=== PATIENT | female | born 1960 | race Two or more races ===

== ENCOUNTER 2016-11-03 00:22 | Emergency (ER) | payer MEDICAID, OTHER ==
[~2016-11-03] VITALS: Ht 170.2 cm; Wt 86.2 kg
[2016-11-03 00:25] VITALS: BP 107/67
[2016-11-03 01:02] LABS: Basophils # (auto) 0.1 uL; Basophils % (auto) 1.4 % (0.0-2.0); Eosinophils # (auto) 0.1 uL; Eosinophils % (auto) 0.6 % (0.0-7.0); Hematocrit 42.3 % (36.0-46.0); Lymphocytes # (auto) 1.5 uL; Lymphocytes % (auto) 14.1 % (10.0-50.0); Mean Corpuscular Hemoglobin 28.1 pg (28.0-32.0); Mean Corpuscular Hgb Conc. 33.1 g/dL (32.0-36.0); Mean Corpuscular Volume 84.9 fL (80.0-100.0); Monocytes # (auto) 0.7 uL; Monocytes % (auto) 6.3 % (0.0-12.0); Neutrophils # (auto) 8.2 uL; Neutrophils % (auto) 77.6 % (37.0-80.0); Platelet Count (auto) 394 10^3/uL (140-450); Red Cell Distribution Width 13.5 % (11.6-16.0); SUSPECT VIEW TRANSMISSION; White Blood Cell 10.6 10^3/uL (4.4-10.8)
[2016-11-03 01:24] LABS: Albumin 2.9 g/dL (3.4-5.0); Calcium 8.9 mg/dL (8.5-10.1); Potassium 4.2 mmol/L (3.5-5.1)
[2016-11-03 01:26] LABS: BUN/Creatinine Ratio 13.2
[2016-11-03 01:29] LABS: Bilirubin, Total 0.4 mg/dL (0.2-1.0); Total Protein 6.9 g/dL (6.4-8.2)
== END 2016-11-03 05:30 | disposition left against medical advice (07) ==
LOC: ER 00:22
DX: R11.2 Nausea with vomiting, unspecified (principal); R10.13 Epigastric pain; Z53.21 Procedure and treatment not carried out due to patient leaving prior to being seen by health care provider
CPT/HCPCS: 36415; 74176; 80053; 85025; 93005

== ENCOUNTER 2017-06-20 07:55 | Inpatient (IN) | payer MEDICAID ==
[~2017-06-20] VITALS: Ht 160 cm; Wt 90.1 kg
[2017-06-20] MEDS ORDERED: SODIUM CHLORIDE 0.9% 1,000 ML IV ONE (08:05)
[2017-06-20] MEDS ORDERED: DILTIAZEM HCL 25 MG/5 ML VIAL IV ONE (08:15)
[2017-06-20] MEDS ORDERED: ASPirin 81 mg TAB PO ONE (08:15)
[2017-06-20 08:49] LABS: Basophils # (auto) 0.1 uL; Basophils % (auto) 0.4 % (0.0-2.0); Eosinophils # (auto) 0 uL; Eosinophils % (auto) 0.2 % (0.0-7.0); Hematocrit 41.8 % (36.0-46.0); Hemoglobin 13.7 g/dL (12.2-16.2); Lymphocytes # (auto) 1.9 uL; Lymphocytes % (auto) 14.2 % (10.0-50.0); Mean Corpuscular Hemoglobin 27.7 pg (28.0-32.0); Mean Corpuscular Hgb Conc. 32.7 g/dL (32.0-36.0); Mean Corpuscular Volume 84.7 fL (80.0-100.0); Monocytes # (auto) 0.9 uL; Monocytes % (auto) 6.3 % (0.0-12.0); Neutrophils # (auto) 10.7 uL; Neutrophils % (auto) 78.9 % (37.0-80.0); Nucleated Red Blood Cells % 0.1 %; Platelet Count (auto) 319 10^3/uL (140-450); Red Blood Cells 4.93 10^6/uL (4.0-5.20); Red Cell Distribution Width 15.9 % (11.8-14.3); White Blood Cell 13.6 10^3/uL (4.4-10.8)
[2017-06-20 09:13] LABS: Albumin 2.9 g/dL (3.4-5.0); BUN/Creatinine Ratio 17.6; Calcium 8.3 mg/dL (8.5-10.1); Magnesium 2.1 mg/dL (1.6-2.6); Potassium 4.1 mmol/L (3.5-5.1)
[2017-06-20 09:17] LABS: INR 1.12 (0.9-1.15); Partial Thromboplastin Time 23.3 sec (22.64-33.71); Prothrombin Time 12.2 sec (9.37-12.3)
[2017-06-20] MEDS ORDERED: AMIODARONE HCL 150 MG in D5W 5% 100 ML IV ONE (10:30)
[2017-06-20] MEDS ORDERED: AMIODARONE HCL 900 MG in DEXTROSE 500 ML IV SCH (10:35)
[2017-06-20] MEDS ORDERED: cefTRIAXone 1GM/10ml IVPUSH 10 ML IV ONE (10:45)
[2017-06-20] MEDS ORDERED: TEMAZEPAM 15 MG CAP PO PRN (11:15)
[2017-06-20] MEDS ORDERED: ACETAMINOPHEN 500 MG TAB PO PRN (11:15)
[2017-06-20] MEDS ORDERED: NITROGLYCERIN 0.4 MG SL TAB SL PRN (11:15)
[2017-06-20] MEDS ORDERED: ALBUTEROL SULF 2.5 MG/0.5ML(0.5%) NEB SOLN NEB PRN (11:15)
[2017-06-20] MEDS ORDERED: DEXTROSE (50%) 50ML SYRG IV PRN (11:15)
[2017-06-20] MEDS ORDERED: OSELTAMIVIR 75 MG CAP PO ONE (11:15)
[2017-06-20] MEDS ORDERED: PROMETHAZINE HCL 25 MG/ML 1ML IV PRN (11:15)
[2017-06-20] MEDS ORDERED: LACTULOSE 20Gm/30ML SOLN PO PRN (11:15)
[2017-06-20] MEDS ORDERED: MORPHINE SULFATE 4 MG/ML SYR/VIAL IV PRN (11:15)
[2017-06-20] MEDS ORDERED: MORPHINE SULF INJ 2 MG/ML SYRINGE 1ML IV PRN (11:30)
[2017-06-20] MEDS ORDERED: ENALAPRIL MALEATE 2.5 MG TAB PO ONE (11:30)
[2017-06-20] MEDS ORDERED: POTASSIUM CHL 20 Meq TABLET PO ONE (11:30)
[2017-06-20] MEDS ORDERED: AZITHROMYCIN 500MG/ 250ML 250 ML IV ONE (11:30)
[2017-06-20] MEDS ORDERED: FUROSEMIDE 40 MG/4 ML VIAL IV ONE ×2 (11:30→20:45)
[2017-06-20] MEDS ORDERED: ENOXAPARIN SOD 80 MG/0.8ML SYRINGE SC ONE (11:30)
[2017-06-20] MEDS: IPRATROPIUM BROM 0.5 MG/2.5ML INH SOL NEB SCH ×2 (11:38→18:54)
[2017-06-20] MEDS: ALBUTEROL SULF 2.5 MG/0.5ML(0.5%) NEB SOLN NEB SCH ×2 (11:38→18:54)
[2017-06-20] MEDS: ACCU-CHEK COMFORT CURVE STRIP VI SCH ×2 (12:00→18:00)
[2017-06-20] MEDS ORDERED: methylPREDNISolone SOD SUCC 40 MG/ML VL IV SCH (12:00)
[2017-06-20 12:57] LABS: Alcohol, Urine < 3.0 mg/dL (0-5); Amphetamine Screen, Urine POSITIVE (NEGATIVE); Barbiturate Scree,Urine NEGATIVE (NEGATIVE); Benzodiazephine Screen, Urine NEGATIVE (NEGATIVE); Cannabinoid Screen, Urine POSITIVE (NEGATIVE); Cocaine Screen, Urine NEGATIVE (NEGATIVE); Opiate Scree,Urine NEGATIVE (NEGATIVE); Phencyclidine Screen, Urine NEGATIVE (NEGATIVE)
[2017-06-20] MEDS ORDERED: METOPROLOL TARTRATE 1MG/1ML-5ML VIAL IV ONE (13:00)
[2017-06-20 13:20] LABS: Bilirubin, Total 1.2 mg/dL (0.2-1.0)
[2017-06-20] MEDS: SODIUM CHLOR 0.9% PF (SALINE LOCK) 10ML VIAL IV SCH ×4 (14:00→21:55)
[2017-06-20] MEDS: MORPHINE SULF INJ 2 MG/ML SYRINGE 1ML IV PRN (14:06)
[2017-06-20 14:19] LABS: Urine Bacteria NONE SEEN /hpf (None Seen); Urine Blood Negative /uL (Negative); Urine Specific Gravity 1.011 (1.001-1.035); Urine WBC 4 /hpf (0 - 5)
[2017-06-20] MEDS ORDERED: DOPamine 1600MCG/ML D5W 250 ML IV ONE (15:06)
[2017-06-20] MEDS ORDERED: MIDAZOLAM HCL 1MG/1ML-2 ML VIAL ONE ×2 (15:08→15:11)
[2017-06-20] MEDS: DOPamine 1600MCG/ML D5W 250 ML IV SCH (15:15)
[2017-06-20] MEDS: NOREPINEPHRINE 8 MG/250ML KIT 250 ML IV SCH ×2 (15:15→16:05)
[2017-06-20] MEDS ORDERED: LORazepam 2MG/ML-1ML VIAL IV ONE (15:15)
[2017-06-20 15:22] LABS: Amylase 29 U/L (25-115); Lipase 86 U/L (73-393)
[2017-06-20] MEDS ORDERED: IOHEXOL 350 MG/ML 100ML IJ ONE (15:35)
[2017-06-20] MEDS ORDERED: MIDAZOLAM HCL 5 MG/ML-1ML VIAL IV ONE (16:00)
[2017-06-20] MEDS ORDERED: THIAMINE HCL 100 MG/ML 2ML VIAL IV ONE (16:15)
[2017-06-20] MEDS: PROPOFOL 100 ML IV SCH (16:25)
[2017-06-20] MEDS ORDERED: PROPOFOL 100 ML IV ONE (16:43)
[2017-06-20] MEDS ORDERED: MIDAZOLAM HCL 1MG/1ML-2 ML VIAL IV ONE (18:15)
[2017-06-20 18:23] VITALS: BP 97/33
[2017-06-20] MEDS ORDERED: DEXTROSE 50% SYRINGE 50 ML IV ONE (19:02)
[2017-06-20] MEDS ORDERED: EPINEPHrine HCL 1 MG/10 ML SYRG IV ONE (19:18)
[2017-06-20] MEDS ORDERED: SODIUM BICARBONATE 8.4% INJ 50ML SYRINGE IV ONE (19:18)
[2017-06-20] MEDS ORDERED: CALCIUM CHLOR(10%) 100MG/ML 10ML SYRINGE IV ONE (19:18)
[2017-06-20] MEDS ORDERED: MIDAZOLAM DRIP 50 mg/50mL 50 ML IV SCH (19:36)
[2017-06-20 19:58] VITALS: BP 109/61
[2017-06-20] MEDS ORDERED: VANCOMYCIN PER PHARMACY 0 MG IV SCH (20:45)
[2017-06-20 21:38] VITALS: BP 97/67
[2017-06-20] MEDS: CARVEDILOL 3.125 MG TAB PO SCH (21:56)
[2017-06-20] MEDS ORDERED: OSELTAMIVIR 75 MG CAP PO SCH (22:00)
[2017-06-20] MEDS: SODIUM BICARBONATE 50ML VIAL 150 ML in D5W 5% 1,000 ML IV SCH (22:13)
[2017-06-20] MEDS: ENOXAPARIN SOD 80 MG/0.8ML SYRINGE SC SCH (22:23)
[2017-06-20 22:25] VITALS: BP 106/75
[2017-06-20] MEDS: VANCOMYCIN 750 MG in SODIUM CHL 0.9% 250 ML IV SCH (22:38)
[2017-06-20 23:58] VITALS: BP 99/66
[2017-06-21] VITALS (60 sets, daily range): BP systolic 80–142; BP diastolic 33–88
[2017-06-21] MEDS: IPRATROPIUM BROM 0.5 MG/2.5ML INH SOL NEB SCH ×4 (00:12→18:26)
[2017-06-21] MEDS: ALBUTEROL SULF 2.5 MG/0.5ML(0.5%) NEB SOLN NEB SCH ×4 (00:12→18:26)
[2017-06-21] MEDS: PIPERACILLIN-TAZOB 3.375GM 50 ML IV SCH ×4 (00:26→18:00)
[2017-06-21] MEDS: ACCU-CHEK COMFORT CURVE STRIP VI SCH ×6 (00:33→22:00)
[2017-06-21] MEDS ORDERED: SODIUM CHLORIDE 0.9% 500 ML IV ONE (02:45)
[2017-06-21 06:05] LABS: Hematocrit 37.8 % (36.0-46.0); Hemoglobin 12.3 g/dL (12.2-16.2); Mean Corpuscular Hemoglobin 27.6 pg (28.0-32.0); Mean Corpuscular Hgb Conc. 32.6 g/dL (32.0-36.0); Red Blood Cells 4.47 10^6/uL (4.0-5.20)
[2017-06-21 06:08] LABS: Mean Corpuscular Volume 84.6 fL (80.0-100.0); Platelet Count (auto) 255 10^3/uL (140-450); Red Cell Distribution Width 15.6 % (11.8-14.3)
[2017-06-21 06:15] LABS: White Blood Cell 31.1 10^3/uL (4.4-10.8)
[2017-06-21 06:16] LABS: Band Neutrophils % (manual) 0; Basophils % (manual) 0 (0.0-2.0); Blast Cells 0; Eosinophils % (manual) 0 (0-7); Myelocytes % 0; Promyelocytes % 0; Reactive Lymphocytes 0
[2017-06-21 06:21] LABS: Calcium 6.8 mg/dL (8.5-10.1)
[2017-06-21 06:23] LABS: BUN/Creatinine Ratio 15.8; Cholesterol 82 mg/dL (< 200); HDL Cholesterol 26 mg/dL (40-59); LDL Cholesterol 66 mg/dL (< 100); Triglycerides 88 mg/dL (< 150)
[2017-06-21] MEDS: SODIUM CHLOR 0.9% PF (SALINE LOCK) 10ML VIAL IV SCH ×6 (06:26→22:00)
[2017-06-21 07:09] LABS: Lymphocytes % (manual) 2 (10.0-50.0); Metamyelocytes % 1; Monocytes % (manual) 3 (0-12)
[2017-06-21] MEDS ORDERED: cefTRIAXone 1GM/10ml IVPUSH 10 ML IV SCH (09:00)
[2017-06-21] MEDS ORDERED: PANTOPRAZOLE 40 MG/10 ML VIAL IV ONE (09:17)
[2017-06-21] MEDS: AZITHROMYCIN 500MG/ 250ML 250 ML IV SCH (09:51)
[2017-06-21] MEDS: FUROSEMIDE 40 MG/4 ML VIAL IV SCH (09:51)
[2017-06-21] MEDS: THIAMINE HCL 100 MG/ML 2ML VIAL IV SCH (09:51)
[2017-06-21] MEDS: VANCOMYCIN 750 MG in SODIUM CHL 0.9% 250 ML IV SCH (09:51)
[2017-06-21] MEDS: CARVEDILOL 3.125 MG TAB PO SCH (09:52)
[2017-06-21] MEDS: SODIUM BICARBONATE 50ML VIAL 150 ML in D5W 5% 1,000 ML IV SCH (09:52)
[2017-06-21] MEDS: ASPirin 81 mg TAB PO SCH (09:52)
[2017-06-21] MEDS: POTASSIUM CHL 10% (20 MEQ/15ML) 15ml ORAL SOLN PO SCH (09:53)
[2017-06-21] MEDS: ENOXAPARIN SOD 80 MG/0.8ML SYRINGE SC SCH (09:53)
[2017-06-21] MEDS ORDERED: POTASSIUM CHL 20 Meq TABLET PO SCH (10:00)
[2017-06-21] MEDS ORDERED: ENALAPRIL MALEATE 2.5 MG TAB PO SCH (10:00)
[2017-06-21] MEDS ORDERED: PANTOPRAZOLE 40 MG/10 ML VIAL IV SCH (10:00)
[2017-06-21] MEDS ORDERED: PANTOPRAZOLE 40 MG TAB PO SCH (10:00)
[2017-06-21] MEDS: DOPamine 1600MCG/ML D5W 250 ML IV SCH (10:13)
[2017-06-21] MEDS ORDERED: PIPERACILLIN-TAZOB 2.25GM 50 ML IV ONE (10:45)
[2017-06-21] MEDS: LINEZOLID 600MG/300ML 300 ML IV SCH ×2 (10:45→22:00)
[2017-06-21 10:53] LABS: Hepatitis B Surface Antibody Negative
[2017-06-21 11:08] LABS: Hepatitis B Surface Antigen Negative (Negative)
[2017-06-21 11:29] LABS: Hepatitis A Total Antibody Negative; Hepatitis C Antibody Negative (Negative)
[2017-06-21 11:30] LABS: Hepatitis B Core Total AB Negative
[2017-06-21] MEDS ORDERED: PIPERACILLIN-TAZOB 2.25GM 50 ML IV SCH (12:00)
[2017-06-21] MEDS ORDERED: NICARDIPINE IV ONE (13:33)
[2017-06-21] MEDS: NOREPINEPHRINE 8 MG/250ML KIT 250 ML IV SCH ×2 (15:36→22:00)
[2017-06-21] MEDS: PROPOFOL 100 ML IV SCH (16:20)
[2017-06-21] MEDS: InsuLIN REG 1unit/0.01ml Soln (100units/ml) SC SCH ×2 (16:55→22:00)
[2017-06-21] MEDS: MIDAZOLAM DRIP 100 mg/100mL NS 100 ML IV SCH (17:59)
[2017-06-21 18:00] LABS: BUN/Creatinine Ratio 15.5; Calcium 6.1 mg/dL (8.5-10.1); Potassium 3.9 mmol/L (3.5-5.1)
[2017-06-21] MEDS: PANTOPRAZOLE 40 MG/10 ML VIAL IV SCH (22:00)
[2017-06-22] VITALS (105 sets, daily range): BP systolic 78–142; BP diastolic 36–84
[2017-06-22] MEDS: ALBUTEROL SULF 2.5 MG/0.5ML(0.5%) NEB SOLN NEB SCH ×4 (00:08→19:01)
[2017-06-22] MEDS: IPRATROPIUM BROM 0.5 MG/2.5ML INH SOL NEB SCH ×4 (00:08→19:01)
[2017-06-22] MEDS: SODIUM BICARBONATE 50ML VIAL 150 ML in D5W 5% 1,000 ML IV SCH ×2 (00:15→07:15)
[2017-06-22] MEDS: PIPERACILLIN-TAZOB 3.375GM 50 ML IV SCH ×5 (00:15→20:03)
[2017-06-22 04:07] LABS: Basophils # (auto) 0 uL; Basophils % (auto) 0.1 % (0.0-2.0); Eosinophils # (auto) 0 uL; Eosinophils % (auto) 0.1 % (0.0-7.0); Hematocrit 37.8 % (36.0-46.0); Hemoglobin 12.3 g/dL (12.2-16.2); Lymphocytes # (auto) 1.4 uL; Lymphocytes % (auto) 5.8 % (10.0-50.0); Mean Corpuscular Hemoglobin 27.1 pg (28.0-32.0); Mean Corpuscular Hgb Conc. 32.7 g/dL (32.0-36.0); Mean Corpuscular Volume 82.9 fL (80.0-100.0); Monocytes # (auto) 0.7 uL; Monocytes % (auto) 2.8 % (0.0-12.0); Neutrophils # (auto) 21.4 uL; Neutrophils % (auto) 91.2 % (37.0-80.0); Nucleated Red Blood Cells % 0.1 %; Platelet Count (auto) 222 10^3/uL (140-450); Red Blood Cells 4.56 10^6/uL (4.0-5.20); Red Cell Distribution Width 15.6 % (11.8-14.3); White Blood Cell 23.4 10^3/uL (4.4-10.8)
[2017-06-22] MEDS: PROPOFOL 100 ML IV SCH ×2 (04:13→15:09)
[2017-06-22 04:29] LABS: Albumin 1.9 g/dL (3.4-5.0); BUN/Creatinine Ratio 15.1; Potassium 3.7 mmol/L (3.5-5.1)
[2017-06-22 04:33] LABS: Bilirubin, Total 1.8 mg/dL (0.2-1.0); Total Protein 4.6 g/dL (6.4-8.2)
[2017-06-22 04:50] LABS: Calcium 5.8 mg/dL (8.5-10.1)
[2017-06-22] MEDS: DOPamine 1600MCG/ML D5W 250 ML IV SCH (04:56)
[2017-06-22] MEDS: ACCU-CHEK COMFORT CURVE STRIP VI SCH ×8 (06:26→21:48)
[2017-06-22] MEDS: SODIUM CHLOR 0.9% PF (SALINE LOCK) 10ML VIAL IV SCH ×6 (06:26→21:48)
[2017-06-22] MEDS: InsuLIN REG 1unit/0.01ml Soln (100units/ml) SC SCH ×4 (06:38→21:48)
[2017-06-22] MEDS ORDERED: CALCIUM CHL 100MG/ML 1,000 MG in D5W 5% 100 ML IV ONE (10:00)
[2017-06-22] MEDS ORDERED: ENOXAPARIN SOD 40 MG/0.4 ML SYRINGE SC SCH (10:00)
[2017-06-22] MEDS: POTASSIUM CHL 10% (20 MEQ/15ML) 15ml ORAL SOLN PO SCH (10:00)
[2017-06-22] MEDS: NOREPINEPHRINE 8 MG/250ML KIT 250 ML IV SCH (10:40)
[2017-06-22] MEDS: THIAMINE HCL 100 MG/ML 2ML VIAL IV SCH (11:14)
[2017-06-22] MEDS: PANTOPRAZOLE 40 MG/10 ML VIAL IV SCH ×2 (11:20→21:48)
[2017-06-22] MEDS: ENOXAPARIN SOD 30 MG/0.3 ML SYRINGE SC SCH (11:25)
[2017-06-22] MEDS: FUROSEMIDE 40 MG/4 ML VIAL IV SCH (11:29)
[2017-06-22] MEDS: LINEZOLID 600MG/300ML 300 ML IV SCH ×2 (11:29→21:48)
[2017-06-22] MEDS: ASPirin 81 mg TAB PO SCH (11:35)
[2017-06-22] MEDS: SODIUM CHLORIDE 0.9% 1,000 ML IV SCH (11:47)
[2017-06-22] MEDS: AZITHROMYCIN 500MG/ 250ML 250 ML IV SCH (11:51)
[2017-06-22] MEDS: MIDAZOLAM DRIP 100 mg/100mL NS 100 ML IV SCH (19:10)
[2017-06-23] VITALS (94 sets, daily range): BP systolic 70–158; BP diastolic 32–101
[2017-06-23] MEDS: DOPamine 1600MCG/ML D5W 250 ML IV SCH ×2 (00:09→19:07)
[2017-06-23] MEDS: PIPERACILLIN-TAZOB 3.375GM 50 ML IV SCH ×4 (00:14→19:59)
[2017-06-23] MEDS: ALBUTEROL SULF 2.5 MG/0.5ML(0.5%) NEB SOLN NEB SCH ×5 (00:59→18:48)
[2017-06-23] MEDS: IPRATROPIUM BROM 0.5 MG/2.5ML INH SOL NEB SCH ×5 (00:59→18:48)
[2017-06-23] MEDS: SODIUM CHLORIDE 0.9% 1,000 ML IV SCH ×2 (02:50→12:25)
[2017-06-23 04:35] LABS: Basophils # (auto) 0 uL; Basophils % (auto) 0.1 % (0.0-2.0); Eosinophils # (auto) 0.1 uL; Eosinophils % (auto) 0.5 % (0.0-7.0); Hematocrit 35.4 % (36.0-46.0); Hemoglobin 11.4 g/dL (12.2-16.2); Lymphocytes % (auto) 6.7 % (10.0-50.0); Mean Corpuscular Hemoglobin 27.1 pg (28.0-32.0); Mean Corpuscular Hgb Conc. 32.3 g/dL (32.0-36.0); Mean Corpuscular Volume 83.9 fL (80.0-100.0); Monocytes # (auto) 0.7 uL; Monocytes % (auto) 4.7 % (0.0-12.0); Neutrophils # (auto) 13.6 uL; Platelet Count (auto) 176 10^3/uL (140-450); Red Blood Cells 4.22 10^6/uL (4.0-5.20); Red Cell Distribution Width 16.1 % (11.8-14.3); White Blood Cell 15.5 10^3/uL (4.4-10.8)
[2017-06-23 04:58] LABS: BUN/Creatinine Ratio 13.2; Calcium 6.5 mg/dL (8.5-10.1); Potassium 3.8 mmol/L (3.5-5.1)
[2017-06-23] MEDS: NOREPINEPHRINE 8 MG/250ML KIT 250 ML IV SCH (05:03)
[2017-06-23] MEDS: PROPOFOL 100 ML IV SCH (05:03)
[2017-06-23] MEDS: SODIUM CHLOR 0.9% PF (SALINE LOCK) 10ML VIAL IV SCH ×6 (05:32→22:28)
[2017-06-23] MEDS: ACCU-CHEK COMFORT CURVE STRIP VI SCH ×8 (06:14→22:28)
[2017-06-23] MEDS: InsuLIN REG 1unit/0.01ml Soln (100units/ml) SC SCH ×4 (06:14→22:00)
[2017-06-23] MEDS: LINEZOLID 600MG/300ML 300 ML IV SCH ×2 (09:48→22:28)
[2017-06-23] MEDS: ASPirin 81 mg TAB PO SCH (09:48)
[2017-06-23] MEDS: AZITHROMYCIN 500MG/ 250ML 250 ML IV SCH (09:48)
[2017-06-23] MEDS: FUROSEMIDE 40 MG/4 ML VIAL IV SCH (09:49)
[2017-06-23] MEDS: POTASSIUM CHL 10% (20 MEQ/15ML) 15ml ORAL SOLN PO SCH (09:49)
[2017-06-23] MEDS: ENOXAPARIN SOD 30 MG/0.3 ML SYRINGE SC SCH (09:49)
[2017-06-23] MEDS: THIAMINE HCL 100 MG/ML 2ML VIAL IV SCH (09:50)
[2017-06-23] MEDS: PANTOPRAZOLE 40 MG/10 ML VIAL IV SCH ×2 (09:50→22:28)
[2017-06-23] MEDS: LORazepam 0.5 MG TAB PO PRN (19:59)
[2017-06-23] MEDS: DEXTROSE (50%) 50ML SYRG IV PRN (20:05)
[2017-06-23] MEDS: MIDAZOLAM DRIP 100 mg/100mL NS 100 ML IV SCH (20:10)
[2017-06-24] VITALS (97 sets, daily range): BP systolic 79–188; BP diastolic 44–118
[2017-06-24] MEDS: ACCU-CHEK COMFORT CURVE STRIP VI SCH ×7 (00:03→18:06)
[2017-06-24] MEDS: PIPERACILLIN-TAZOB 3.375GM 50 ML IV SCH ×4 (00:29→18:15)
[2017-06-24] MEDS: PROPOFOL 100 ML IV SCH ×2 (01:30→21:02)
[2017-06-24] MEDS: MORPHINE SULF INJ 2 MG/ML SYRINGE 1ML IV PRN (03:55)
[2017-06-24 04:50] LABS: Basophils # (auto) 0 uL; Basophils % (auto) 0.2 % (0.0-2.0); Eosinophils # (auto) 0.2 uL; Eosinophils % (auto) 1.5 % (0.0-7.0); Hematocrit 34.2 % (36.0-46.0); Hemoglobin 11.3 g/dL (12.2-16.2); Lymphocytes % (auto) 8.8 % (10.0-50.0); Mean Corpuscular Hemoglobin 27.6 pg (28.0-32.0); Mean Corpuscular Hgb Conc. 32.9 g/dL (32.0-36.0); Mean Corpuscular Volume 83.7 fL (80.0-100.0); Monocytes # (auto) 0.8 uL; Monocytes % (auto) 7.1 % (0.0-12.0); Neutrophils # (auto) 9.6 uL; Neutrophils % (auto) 82.4 % (37.0-80.0); Nucleated Red Blood Cells % 0.1 %; Platelet Count (auto) 136 10^3/uL (140-450); Red Blood Cells 4.09 10^6/uL (4.0-5.20); Red Cell Distribution Width 15.9 % (11.8-14.3); White Blood Cell 11.7 10^3/uL (4.4-10.8)
[2017-06-24] MEDS: LORazepam 0.5 MG TAB PO PRN (04:59)
[2017-06-24 05:05] LABS: BUN/Creatinine Ratio 11.7; Potassium 3.3 mmol/L (3.5-5.1)
[2017-06-24] MEDS: DEXTROSE (50%) 50ML SYRG IV PRN (05:10)
[2017-06-24] MEDS: SODIUM CHLOR 0.9% PF (SALINE LOCK) 10ML VIAL IV SCH ×6 (05:28→21:21)
[2017-06-24] MEDS: IPRATROPIUM BROM 0.5 MG/2.5ML INH SOL NEB SCH ×3 (05:56→18:20)
[2017-06-24] MEDS: ALBUTEROL SULF 2.5 MG/0.5ML(0.5%) NEB SOLN NEB SCH ×3 (05:56→18:20)
[2017-06-24] MEDS: InsuLIN REG 1unit/0.01ml Soln (100units/ml) SC SCH ×2 (06:53→11:30)
[2017-06-24] MEDS: SODIUM CHLORIDE 0.9% 1,000 ML IV SCH (06:56)
[2017-06-24] MEDS: LINEZOLID 600MG/300ML 300 ML IV SCH ×2 (10:30→21:31)
[2017-06-24] MEDS: PANTOPRAZOLE 40 MG/10 ML VIAL IV SCH ×2 (10:40→21:31)
[2017-06-24] MEDS: THIAMINE HCL 100 MG/ML 2ML VIAL IV SCH (10:40)
[2017-06-24] MEDS: ASPirin 81 mg TAB PO SCH (10:40)
[2017-06-24] MEDS: POTASSIUM CHL 10% (20 MEQ/15ML) 15ml ORAL SOLN PO SCH (10:40)
[2017-06-24] MEDS: ENOXAPARIN SOD 30 MG/0.3 ML SYRINGE SC SCH (10:40)
[2017-06-24] MEDS: FUROSEMIDE 40 MG/4 ML VIAL IV SCH (10:45)
[2017-06-24] MEDS: DOPamine 1600MCG/ML D5W 250 ML IV SCH (15:00)
[2017-06-24] MEDS: NOREPINEPHRINE 8 MG/250ML KIT 250 ML IV SCH (15:15)
[2017-06-24] MEDS: AZITHROMYCIN 500MG/ 250ML 250 ML IV SCH (16:00)
[2017-06-24] MEDS ORDERED: POTASSIUM CHLORIDE 40 MEQ, LIDOCAINE 1% (LOCAL ANESTH.) 4 ML in SODIUM CHL 0.9% 100 ML IV ONE (16:15)
[2017-06-24] MEDS: SOD CHL 0.45% 1,000 ML IV SCH (16:25)
[2017-06-24] MEDS: MIDAZOLAM DRIP 100 mg/100mL NS 100 ML IV SCH (18:00)
[2017-06-25] VITALS (55 sets, daily range): BP systolic 91–175; BP diastolic 25–105
[2017-06-25] MEDS: ALBUTEROL SULF 2.5 MG/0.5ML(0.5%) NEB SOLN NEB SCH ×4 (00:03→18:36)
[2017-06-25] MEDS: IPRATROPIUM BROM 0.5 MG/2.5ML INH SOL NEB SCH ×4 (00:03→18:36)
[2017-06-25] MEDS: PIPERACILLIN-TAZOB 3.375GM 50 ML IV SCH ×4 (00:11→17:29)
[2017-06-25] MEDS: PROPOFOL 100 ML IV SCH (02:34)
[2017-06-25 03:59] LABS: Basophils # (auto) 0.1 uL; Basophils % (auto) 0.7 % (0.0-2.0); Eosinophils # (auto) 0.3 uL; Eosinophils % (auto) 2.1 % (0.0-7.0); Hematocrit 37.5 % (36.0-46.0); Hemoglobin 12.1 g/dL (12.2-16.2); Lymphocytes # (auto) 0.7 uL; Lymphocytes % (auto) 6.1 % (10.0-50.0); Mean Corpuscular Hemoglobin 27.2 pg (28.0-32.0); Mean Corpuscular Hgb Conc. 32.4 g/dL (32.0-36.0); Mean Corpuscular Volume 83.9 fL (80.0-100.0); Monocytes # (auto) 0.9 uL; Monocytes % (auto) 7.3 % (0.0-12.0); Neutrophils # (auto) 10.1 uL; Neutrophils % (auto) 83.8 % (37.0-80.0); Platelet Count (auto) 156 10^3/uL (140-450); Red Blood Cells 4.47 10^6/uL (4.0-5.20); Red Cell Distribution Width 16.4 % (11.8-14.3)
[2017-06-25 04:17] LABS: Calcium 7.3 mg/dL (8.5-10.1)
[2017-06-25] MEDS: MORPHINE SULF INJ 2 MG/ML SYRINGE 1ML IV PRN ×2 (05:26→21:13)
[2017-06-25] MEDS: SODIUM CHLOR 0.9% PF (SALINE LOCK) 10ML VIAL IV SCH ×6 (06:00→22:00)
[2017-06-25] MEDS: ACCU-CHEK COMFORT CURVE STRIP VI SCH ×4 (06:00→17:30)
[2017-06-25] MEDS: DOPamine 1600MCG/ML D5W 250 ML IV SCH (09:03)
[2017-06-25] MEDS: SOD CHL 0.45% 1,000 ML IV SCH ×2 (09:14→12:15)
[2017-06-25] MEDS: DEXMEDETOMIDINE HCL 400 MCG in D5W 5% 96 ML IV SCH ×2 (09:14→21:15)
[2017-06-25] MEDS: THIAMINE HCL 100 MG/ML 2ML VIAL IV SCH (09:53)
[2017-06-25] MEDS: PANTOPRAZOLE 40 MG/10 ML VIAL IV SCH ×2 (09:53→21:12)
[2017-06-25] MEDS: AZITHROMYCIN 500MG/ 250ML 250 ML IV SCH (09:53)
[2017-06-25] MEDS: ENOXAPARIN SOD 30 MG/0.3 ML SYRINGE SC SCH (09:54)
[2017-06-25] MEDS: ASPirin 81 mg TAB PO SCH (09:54)
[2017-06-25] MEDS: LINEZOLID 600MG/300ML 300 ML IV SCH ×2 (10:42→21:14)
[2017-06-25] MEDS: NOREPINEPHRINE 8 MG/250ML KIT 250 ML IV SCH (15:15)
[2017-06-25] MEDS: MIDAZOLAM DRIP 100 mg/100mL NS 100 ML IV SCH (18:00)
[2017-06-25] MEDS: D5W/SOD CHL 0.45% 1,000 ML IV SCH (18:26)
[2017-06-25] MEDS: methylPREDNISolone SOD SUCC 40 MG/ML VL IV SCH (21:13)
[2017-06-26] VITALS (57 sets, daily range): BP systolic 92–140; BP diastolic 56–83
[2017-06-26] MEDS: IPRATROPIUM BROM 0.5 MG/2.5ML INH SOL NEB SCH ×4 (00:19→19:44)
[2017-06-26] MEDS: ALBUTEROL SULF 2.5 MG/0.5ML(0.5%) NEB SOLN NEB SCH ×4 (00:20→19:44)
[2017-06-26] MEDS: MORPHINE SULF INJ 2 MG/ML SYRINGE 1ML IV PRN ×2 (00:48→06:50)
[2017-06-26 03:50] LABS: Basophils # (auto) 0 uL; Basophils % (auto) 0.1 % (0.0-2.0); Eosinophils # (auto) 0 uL; Hematocrit 37.8 % (36.0-46.0); Hemoglobin 12.4 g/dL (12.2-16.2); Lymphocytes # (auto) 0.4 uL; Lymphocytes % (auto) 3.9 % (10.0-50.0); Mean Corpuscular Hemoglobin 27.3 pg (28.0-32.0); Mean Corpuscular Hgb Conc. 32.8 g/dL (32.0-36.0); Mean Corpuscular Volume 83.3 fL (80.0-100.0); Monocytes # (auto) 0.2 uL; Monocytes % (auto) 1.6 % (0.0-12.0); Neutrophils # (auto) 8.8 uL; Neutrophils % (auto) 94.4 % (37.0-80.0); Nucleated Red Blood Cells % 0.1 %; Platelet Count (auto) 129 10^3/uL (140-450); Red Blood Cells 4.53 10^6/uL (4.0-5.20); Red Cell Distribution Width 16.1 % (11.8-14.3); White Blood Cell 9.3 10^3/uL (4.4-10.8)
[2017-06-26] MEDS: DOPamine 1600MCG/ML D5W 250 ML IV SCH ×2 (04:01→22:37)
[2017-06-26 04:11] LABS: Albumin 1.9 g/dL (3.4-5.0); BUN/Creatinine Ratio 11.4; Bilirubin, Total 1.1 mg/dL (0.2-1.0); Calcium 7.5 mg/dL (8.5-10.1); Total Protein 5.5 g/dL (6.4-8.2)
[2017-06-26] MEDS: methylPREDNISolone SOD SUCC 40 MG/ML VL IV SCH ×3 (06:19→21:49)
[2017-06-26] MEDS: PIPERACILLIN-TAZOB 3.375GM 50 ML IV SCH ×5 (06:19→23:31)
[2017-06-26] MEDS: ACCU-CHEK COMFORT CURVE STRIP VI SCH ×5 (06:19→23:31)
[2017-06-26] MEDS: SODIUM CHLOR 0.9% PF (SALINE LOCK) 10ML VIAL IV SCH ×6 (06:19→21:48)
[2017-06-26] MEDS: DEXMEDETOMIDINE HCL 400 MCG in D5W 5% 96 ML IV SCH (06:49)
[2017-06-26] MEDS: PANTOPRAZOLE 40 MG/10 ML VIAL IV SCH ×2 (09:48→21:48)
[2017-06-26] MEDS: THIAMINE HCL 100 MG/ML 2ML VIAL IV SCH (09:48)
[2017-06-26] MEDS: AZITHROMYCIN 500MG/ 250ML 250 ML IV SCH (09:49)
[2017-06-26] MEDS: ENOXAPARIN SOD 30 MG/0.3 ML SYRINGE SC SCH (09:49)
[2017-06-26] MEDS: ASPirin 81 mg TAB PO SCH (09:49)
[2017-06-26] MEDS: D5W/SOD CHL 0.45% 1,000 ML IV SCH ×2 (12:05→21:49)
[2017-06-26] MEDS ORDERED: EPINEPHrine HCL 0.5 ML NEB ONE (14:55)
[2017-06-26] MEDS ORDERED: EPINEPHrine HCL 0.5 ML NEB NEB ONE (15:00)
[2017-06-26] MEDS: NOREPINEPHRINE 8 MG/250ML KIT 250 ML IV SCH (15:15)
[2017-06-26] MEDS: LINEZOLID 600MG/300ML 300 ML IV SCH (15:15)
[2017-06-26] MEDS: PROPOFOL 100 ML IV SCH (16:20)
[2017-06-26] MEDS: MIDAZOLAM DRIP 100 mg/100mL NS 100 ML IV SCH (18:00)
[2017-06-27] VITALS: BP 131/91
[2017-06-27] MEDS: ALBUTEROL SULF 2.5 MG/0.5ML(0.5%) NEB SOLN NEB SCH ×4 (00:28→19:02)
[2017-06-27] MEDS: IPRATROPIUM BROM 0.5 MG/2.5ML INH SOL NEB SCH ×4 (00:28→19:02)
[2017-06-27] MEDS: LINEZOLID 600MG/300ML 300 ML IV SCH ×2 (01:35→14:03)
[2017-06-27 02:00] VITALS: BP 117/76
[2017-06-27] MEDS: SODIUM CHLOR 0.9% PF (SALINE LOCK) 10ML VIAL IV SCH ×4 (05:27→21:49)
[2017-06-27] MEDS: PIPERACILLIN-TAZOB 3.375GM 50 ML IV SCH ×4 (05:28→23:44)
[2017-06-27] MEDS: methylPREDNISolone SOD SUCC 40 MG/ML VL IV SCH ×2 (05:28→21:50)
[2017-06-27] MEDS: ACCU-CHEK COMFORT CURVE STRIP VI SCH ×4 (06:00→23:44)
[2017-06-27] MEDS: DEXMEDETOMIDINE HCL 400 MCG in D5W 5% 96 ML IV SCH (07:41)
[2017-06-27 08:00] VITALS: BP 125/90
[2017-06-27] MEDS: ASPirin 81 mg TAB PO SCH (09:54)
[2017-06-27] MEDS: AZITHROMYCIN 500MG/ 250ML 250 ML IV SCH (09:54)
[2017-06-27] MEDS: PANTOPRAZOLE 40 MG/10 ML VIAL IV SCH ×2 (09:54→21:49)
[2017-06-27] MEDS: THIAMINE HCL 100 MG/ML 2ML VIAL IV SCH (09:54)
[2017-06-27] MEDS: ENOXAPARIN SOD 30 MG/0.3 ML SYRINGE SC SCH (09:55)
[2017-06-27] MEDS: D5W/SOD CHL 0.45% 1,000 ML IV SCH ×2 (09:55→17:44)
[2017-06-27 11:56] LABS: Basophils # (auto) 0.1 uL; Basophils % (auto) 0.5 % (0.0-2.0); Eosinophils # (auto) 0 uL; Hematocrit 40.5 % (36.0-46.0); Hemoglobin 13.1 g/dL (12.2-16.2); Lymphocytes # (auto) 0.7 uL; Lymphocytes % (auto) 5.3 % (10.0-50.0); Mean Corpuscular Hemoglobin 27.1 pg (28.0-32.0); Mean Corpuscular Hgb Conc. 32.4 g/dL (32.0-36.0); Mean Corpuscular Volume 83.7 fL (80.0-100.0); Monocytes # (auto) 0.5 uL; Monocytes % (auto) 4.1 % (0.0-12.0); Neutrophils # (auto) 11.1 uL; Neutrophils % (auto) 90.1 % (37.0-80.0); Platelet Count (auto) 182 10^3/uL (140-450); Red Blood Cells 4.84 10^6/uL (4.0-5.20); Red Cell Distribution Width 16.3 % (11.8-14.3); White Blood Cell 12.3 10^3/uL (4.4-10.8)
[2017-06-27 11:57] VITALS: BP 125/89
[2017-06-27 12:16] LABS: BUN/Creatinine Ratio 12.8; Calcium 7.5 mg/dL (8.5-10.1)
[2017-06-27 15:48] VITALS: BP 109/68
[2017-06-27 19:50] VITALS: BP 111/69
[2017-06-27 21:39] LABS: Urine Amorphous Crystal FEW /hpf (None Seen); Urine Bacteria FEW /hpf (None Seen); Urine Blood 2+ /uL (Negative); Urine Specific Gravity 1.015 (1.001-1.035); Urine WBC 3 /hpf (0 - 5)
[2017-06-27 22:16] LABS: Creatinine, Urine 61 mg/dL (30.0-125.0); Sodium Urine 30 mmol/L (40-220)
[2017-06-28] MEDS: ALBUTEROL SULF 2.5 MG/0.5ML(0.5%) NEB SOLN NEB SCH ×4 (00:11→19:12)
[2017-06-28] MEDS: IPRATROPIUM BROM 0.5 MG/2.5ML INH SOL NEB SCH ×4 (00:11→19:12)
[2017-06-28] MEDS: LINEZOLID 600MG/300ML 300 ML IV SCH ×2 (01:54→14:36)
[2017-06-28] MEDS: HYDROcodone-ACET 5/325MG TAB PO PRN ×2 (03:44→22:10)
[2017-06-28] MEDS: D5W/SOD CHL 0.45% 1,000 ML IV SCH ×2 (05:30→11:00)
[2017-06-28] MEDS: SODIUM CHLOR 0.9% PF (SALINE LOCK) 10ML VIAL IV SCH ×3 (06:01→22:09)
[2017-06-28] MEDS: ACCU-CHEK COMFORT CURVE STRIP VI SCH ×3 (06:01→18:00)
[2017-06-28] MEDS: PIPERACILLIN-TAZOB 3.375GM 50 ML IV SCH ×3 (06:01→18:00)
[2017-06-28 08:00] VITALS: BP 167/90
[2017-06-28 10:22] LABS: Basophils # (auto) 0 uL; Basophils % (auto) 0.1 % (0.0-2.0); Eosinophils # (auto) 0 uL; Eosinophils % (auto) 0.1 % (0.0-7.0); Hematocrit 37.2 % (36.0-46.0); Hemoglobin 12.1 g/dL (12.2-16.2); Lymphocytes # (auto) 1.1 uL; Lymphocytes % (auto) 9.3 % (10.0-50.0); Mean Corpuscular Hemoglobin 27.2 pg (28.0-32.0); Mean Corpuscular Hgb Conc. 32.7 g/dL (32.0-36.0); Mean Corpuscular Volume 83.4 fL (80.0-100.0); Monocytes # (auto) 0.9 uL; Neutrophils # (auto) 9.6 uL; Neutrophils % (auto) 82.5 % (37.0-80.0); Platelet Count (auto) 175 10^3/uL (140-450); Red Blood Cells 4.46 10^6/uL (4.0-5.20); Red Cell Distribution Width 16.3 % (11.8-14.3); White Blood Cell 11.6 10^3/uL (4.4-10.8)
[2017-06-28 10:27] LABS: BUN/Creatinine Ratio 12.2; Potassium 3.4 mmol/L (3.5-5.1)
[2017-06-28] MEDS: AZITHROMYCIN 500MG/ 250ML 250 ML IV SCH (10:33)
[2017-06-28] MEDS: THIAMINE HCL 100 MG/ML 2ML VIAL IV SCH (10:33)
[2017-06-28] MEDS: PANTOPRAZOLE 40 MG/10 ML VIAL IV SCH ×2 (10:33→22:08)
[2017-06-28] MEDS: ENOXAPARIN SOD 30 MG/0.3 ML SYRINGE SC SCH (10:34)
[2017-06-28] MEDS: ASPirin 81 mg TAB PO SCH (10:34)
[2017-06-28] MEDS: methylPREDNISolone SOD SUCC 40 MG/ML VL IV SCH ×2 (10:34→22:09)
[2017-06-28] MEDS ORDERED: cloNIDine HCL 0.1 MG TAB PO ONE (11:45)
[2017-06-28 11:56] VITALS: BP 131/97
[2017-06-28] MEDS: cloNIDine HCL 0.1 MG TAB PO SCH ×2 (14:37→22:08)
[2017-06-28 15:50] VITALS: BP 153/91
[2017-06-28 20:00] VITALS: BP 148/90
[2017-06-28 22:00] VITALS: BP 148/85
[2017-06-29] MEDS: ACCU-CHEK COMFORT CURVE STRIP VI SCH ×4 (00:12→18:00)
[2017-06-29] MEDS: PIPERACILLIN-TAZOB 3.375GM 50 ML IV SCH ×4 (00:12→17:56)
[2017-06-29] MEDS: D5W/SOD CHL 0.45% 1,000 ML IV SCH (01:30)
[2017-06-29] MEDS: LINEZOLID 600MG/300ML 300 ML IV SCH ×2 (02:32→14:22)
[2017-06-29 05:00] VITALS: BP 165/101
[2017-06-29] MEDS: SODIUM CHLOR 0.9% PF (SALINE LOCK) 10ML VIAL IV SCH ×3 (05:34→22:17)
[2017-06-29] MEDS: cloNIDine HCL 0.1 MG TAB PO SCH ×3 (05:35→22:16)
[2017-06-29] MEDS: ALBUTEROL SULF 2.5 MG/0.5ML(0.5%) NEB SOLN NEB SCH ×5 (07:22→23:28)
[2017-06-29] MEDS: IPRATROPIUM BROM 0.5 MG/2.5ML INH SOL NEB SCH ×5 (07:22→23:28)
[2017-06-29 08:48] LABS: BUN/Creatinine Ratio 13.2; Calcium 7.7 mg/dL (8.5-10.1); Potassium 3.7 mmol/L (3.5-5.1)
[2017-06-29 08:51] VITALS: BP 159/91
[2017-06-29] MEDS: AZITHROMYCIN 500MG/ 250ML 250 ML IV SCH (09:39)
[2017-06-29] MEDS: PANTOPRAZOLE 40 MG/10 ML VIAL IV SCH ×2 (09:39→22:17)
[2017-06-29] MEDS: ASPirin 81 mg TAB PO SCH (09:39)
[2017-06-29] MEDS: methylPREDNISolone SOD SUCC 40 MG/ML VL IV SCH (09:39)
[2017-06-29] MEDS: THIAMINE HCL 100 MG/ML 2ML VIAL IV SCH (09:40)
[2017-06-29] MEDS: ENOXAPARIN SOD 30 MG/0.3 ML SYRINGE SC SCH (09:40)
[2017-06-29] MEDS: SOD CHL 0.45% 1,000 ML IV SCH (10:00)
[2017-06-29 11:13] VITALS: BP 159/91
[2017-06-29] MEDS ORDERED: FUROSEMIDE 40 MG/4 ML VIAL IV ONE (15:00)
[2017-06-29 16:42] VITALS: BP 154/95
[2017-06-29] MEDS: PRO-STAT 64 30ML PO SCH (18:48)
[2017-06-29 22:00] VITALS: BP 160/102
[2017-06-29 23:30] VITALS: BP 133/81
[2017-06-30] MEDS: PIPERACILLIN-TAZOB 3.375GM 50 ML IV SCH ×2 (00:11→05:53)
[2017-06-30] MEDS: SOD CHL 0.45% 1,000 ML IV SCH ×2 (00:12→05:54)
[2017-06-30] MEDS: LINEZOLID 600MG/300ML 300 ML IV SCH (02:12)
[2017-06-30] MEDS: MORPHINE SULF INJ 2 MG/ML SYRINGE 1ML IV PRN (04:37)
[2017-06-30 05:00] VITALS: BP 147/94
[2017-06-30] MEDS: cloNIDine HCL 0.1 MG TAB PO SCH (05:53)
[2017-06-30] MEDS: SODIUM CHLOR 0.9% PF (SALINE LOCK) 10ML VIAL IV SCH (05:54)
[2017-06-30] MEDS: ACCU-CHEK COMFORT CURVE STRIP VI SCH ×2 (05:54)
[2017-06-30 08:02] VITALS: BP 124/86
[2017-06-30] MEDS: PRO-STAT 64 30ML PO SCH (08:26)
[2017-06-30 08:28] VITALS: BP 124/86
[2017-06-30] MEDS: ALBUTEROL SULF 2.5 MG/0.5ML(0.5%) NEB SOLN NEB SCH (08:35)
[2017-06-30] MEDS: IPRATROPIUM BROM 0.5 MG/2.5ML INH SOL NEB SCH (08:35)
[2017-06-30] MEDS ORDERED: PNEUMOCOCCAL VACC POLYS 25 MCG/0.5 ML VIAL IM ONE (10:00)
[2017-06-30] MEDS ORDERED: INFLUENZA QUAD 2017-2018 0.5 ML SYRG IM ONE (10:00)
== END 2017-06-30 10:00 | disposition home or self-care (01) | DRG 720 ==
LOC: ER 07:55 → EDBD 07:55 → TELE 07:56 → ICU WEST 06-21 11:11 → DOU IN ICU 06-27 02:21 → TELE-CENTR 06-28 21:37
PROVIDERS: ADMIT Internal Medicine; ATTEND Internal Medicine
PROC: 5A12012 Performance of Cardiac Output, Single, Manual (ICD-10-PCS; 2017-06-20)
PROC: 5A1955Z Respiratory Ventilation, Greater than 96 Consecutive Hours (ICD-10-PCS; principal; 2017-06-23)
PROC: 0BH17EZ Insertion of Endotracheal Airway into Trachea, Via Natural or Artificial Opening (ICD-10-PCS; 2017-06-23)
DX: A41.9 Sepsis, unspecified organism (principal); J96.01 Acute respiratory failure with hypoxia; N17.0 Acute kidney failure with tubular necrosis; I46.9 Cardiac arrest, cause unspecified; R65.21 Severe sepsis with septic shock; I11.0 Hypertensive heart disease with heart failure; E87.2 Acidosis; J38.4 Edema of larynx; I50.42 Chronic combined systolic (congestive) and diastolic (congestive) heart failure; J15.9 Unspecified bacterial pneumonia; E44.0 Moderate protein-calorie malnutrition; I48.91 Unspecified atrial fibrillation; I42.0 Dilated cardiomyopathy; E83.51 Hypocalcemia; I08.1 Rheumatic disorders of both mitral and tricuspid valves; J44.0 Chronic obstructive pulmonary disease with (acute) lower respiratory infection; E87.1 Hypo-osmolality and hyponatremia; E87.6 Hypokalemia; F12.90 Cannabis use, unspecified, uncomplicated; F15.10 Other stimulant abuse, uncomplicated; F17.210 Nicotine dependence, cigarettes, uncomplicated; K92.2 Gastrointestinal hemorrhage, unspecified; T50.8X5A Adverse effect of diagnostic agents, initial encounter; Z83.3 Family history of diabetes mellitus; Z91.19 Patient's noncompliance with other medical treatment and regimen; Z90.49 Acquired absence of other specified parts of digestive tract; Z68.35 Body mass index [BMI] 35.0-35.9, adult; Z23 Encounter for immunization
CPT/HCPCS: 36415; 36556; 36600; 51702; 71045; 71260; 74176; 74177; 76705; 80048; 80053; 80061; 80202; 80307; 81001; 82150; 82270; 82550; 82570; 82805; 82962; 83036; 83690; 83735; 83880; 84300; 84443; 84484; 85007; 85025; 85027; 85048; 85379; 85610; 85652; 85730; 86141; 86704; 86706; 86708; 86803; 87040; 87045; 87070; 87081; 87205; 87340; 87400; 87493; 87899; 93005; 93312; 94002; 94003; 94640; 96365; 96367; 96375; 96376; 97116; 97163; 97530; 99291; C9113; J1815; J2001; J2250; J2543; J2704; J7042; J7060

== ENCOUNTER 2017-07-02 19:24 | Inpatient (IN) | payer MEDICAID ==
[~2017-07-02] VITALS: Ht 160 cm; Wt 65.8 kg
[2017-07-02 20:59] LABS: Basophils # (auto) 0 uL; Basophils % (auto) 0.2 % (0.0-2.0); Eosinophils # (auto) 0 uL; Eosinophils % (auto) 0.3 % (0.0-7.0); Hematocrit 34.6 % (36.0-46.0); Hemoglobin 11.3 g/dL (12.2-16.2); Lymphocytes % (auto) 6.1 % (10.0-50.0); Mean Corpuscular Hemoglobin 27.1 pg (28.0-32.0); Mean Corpuscular Hgb Conc. 32.8 g/dL (32.0-36.0); Mean Corpuscular Volume 82.6 fL (80.0-100.0); Monocytes % (auto) 5.7 % (0.0-12.0); Neutrophils # (auto) 14.9 uL; Neutrophils % (auto) 87.7 % (37.0-80.0); Nucleated Red Blood Cells % 0.1 %; Platelet Count (auto) 192 10^3/uL (140-450); Red Blood Cells 4.19 10^6/uL (4.0-5.20)
[2017-07-02 21:21] LABS: Albumin 2.3 g/dL (3.4-5.0); BUN/Creatinine Ratio 12.8; Bilirubin, Total 0.6 mg/dL (0.2-1.0); Calcium 7.4 mg/dL (8.5-10.1); Magnesium 1.7 mg/dL (1.6-2.6); Potassium 3.1 mmol/L (3.5-5.1); Total Protein 6.3 g/dL (6.4-8.2)
[2017-07-02 21:23] LABS: Urine Blood Negative /uL (Negative); Urine Specific Gravity 1.004 (1.001-1.035)
[2017-07-02 21:54] LABS: Urine Bacteria FEW /hpf (None Seen); Urine Budding Yeast Few /hpf (None Seen); Urine WBC 3 /hpf (0 - 5)
[2017-07-02] MEDS ORDERED: METOPROLOL TARTRATE 25 MG TAB PO ONE (22:00)
[2017-07-02] MEDS ORDERED: FUROSEMIDE 20 MG/2 ML VIAL IV ONE (22:00)
[2017-07-03] MEDS ORDERED: IPRATROPIUM BROM 0.5 MG/2.5ML INH SOL HHN ONE (00:30)
[2017-07-03] MEDS ORDERED: ALBUTEROL SULF 2.5 MG/0.5ML(0.5%) NEB SOLN HHN ONE (00:30)
[2017-07-03] MEDS ORDERED: VANCOMYCIN PER PHARMACY 0 MG IV SCH (01:00)
[2017-07-03] MEDS ORDERED: METOPROLOL TARTRATE 50 MG TAB PO ONE (01:30)
[2017-07-03] MEDS ORDERED: VANCOMYCIN 1GM/250ML 250 ML IV ONE (02:00)
[2017-07-03] MEDS ORDERED: METOPROLOL TARTRATE 1MG/1ML-5ML VIAL IV ONE ×2 (02:30→03:30)
[2017-07-03] MEDS ORDERED: FUROSEMIDE 40 MG/4 ML VIAL IV ONE (03:15)
[2017-07-03] MEDS ORDERED: DIGOXIN (250MCG/ML) 2 ML AMPULE IV ONE ×2 (04:30→05:30)
[2017-07-03 05:23] LABS: Basophils # (auto) 0.1 uL; Basophils % (auto) 0.5 % (0.0-2.0); Nucleated Red Blood Cells % 0.1 %
[2017-07-03 05:24] LABS: Eosinophils # (auto) 0.1 uL; Eosinophils % (auto) 0.4 % (0.0-7.0); Hematocrit 34.3 % (36.0-46.0); Hemoglobin 11.3 g/dL (12.2-16.2); Lymphocytes # (auto) 1.5 uL; Lymphocytes % (auto) 9.4 % (10.0-50.0); Mean Corpuscular Hemoglobin 27.2 pg (28.0-32.0); Mean Corpuscular Hgb Conc. 32.9 g/dL (32.0-36.0); Mean Corpuscular Volume 82.9 fL (80.0-100.0); Monocytes # (auto) 1.1 uL; Monocytes % (auto) 6.7 % (0.0-12.0); Neutrophils # (auto) 13.2 uL; Platelet Count (auto) 206 10^3/uL (140-450); Red Blood Cells 4.14 10^6/uL (4.0-5.20); White Blood Cell 15.9 10^3/uL (4.4-10.8)
[2017-07-03 05:48] LABS: Albumin 2.3 g/dL (3.4-5.0); BUN/Creatinine Ratio 12.5; Bilirubin, Total 0.6 mg/dL (0.2-1.0); Calcium 7.6 mg/dL (8.5-10.1); Potassium 3.3 mmol/L (3.5-5.1); Total Protein 6.1 g/dL (6.4-8.2)
[2017-07-03] MEDS: PIPERACILLIN-TAZOB 2.25GM 50 ML IV SCH ×3 (06:00→19:04)
[2017-07-03] MEDS ORDERED: NITROGLYCERIN 0.4 MG SL TAB SL PRN (06:00)
[2017-07-03] MEDS ORDERED: MORPHINE SULF INJ 2 MG/ML SYRINGE 1ML IV PRN (06:00)
[2017-07-03] MEDS ORDERED: ACETAMINOPHEN 500 MG TAB PO PRN (06:30)
[2017-07-03] MEDS ORDERED: MORPHINE SULFATE 10 MG/ML INJ 1ML SDV IV PRN (07:00)
[2017-07-03] MEDS ORDERED: POTASSIUM CHL 20 Meq TABLET PO ONE (07:00)
[2017-07-03] MEDS ORDERED: cloNIDine 0.1 mg/24hr 7 DAY PATCH TD ONE (07:15)
[2017-07-03] MEDS ORDERED: FLUCONAZOLE 100 MG TAB PO ONE (07:30)
[2017-07-03] MEDS ORDERED: cloNIDine HCL 0.1 MG TAB PO ONE ×2 (07:30)
[2017-07-03 09:17] VITALS: BP 184/101
[2017-07-03] MEDS: ALBUTEROL SULF 2.5 MG/0.5ML(0.5%) NEB SOLN NEB SCH ×2 (11:38→19:07)
[2017-07-03] MEDS: IPRATROPIUM BROM 0.5 MG/2.5ML INH SOL NEB SCH ×2 (11:38→19:07)
[2017-07-03] MEDS: FUROSEMIDE 100 MG/10ML VIAL IV SCH ×2 (11:52→19:03)
[2017-07-03] MEDS ORDERED: PIPERACILLIN-TAZOB 2.25GM 50 ML IV SCH (12:00)
[2017-07-03 12:55] LABS: Creatinine, Urine 37 mg/dL (30.0-125.0); Sodium Urine 58 mmol/L (40-220)
[2017-07-03 13:19] LABS: Phosphorus 3.7 mg/dL (2.5-4.90); Uric Acid 4.7 mg/dL (2.6-6.0)
[2017-07-03 13:36] LABS: Alcohol, Urine < 3.0 mg/dL (0-5); Amphetamine Screen, Urine NEGATIVE (NEGATIVE); Barbiturate Scree,Urine NEGATIVE (NEGATIVE); Benzodiazephine Screen, Urine NEGATIVE (NEGATIVE); Cannabinoid Screen, Urine NEGATIVE (NEGATIVE); Cocaine Screen, Urine NEGATIVE (NEGATIVE); Opiate Scree,Urine NEGATIVE (NEGATIVE); Phencyclidine Screen, Urine NEGATIVE (NEGATIVE)
[2017-07-03 17:00] VITALS: BP 149/83
[2017-07-03] MEDS ORDERED: LEVO-28 PO (19:53)
[2017-07-03 23:42] VITALS: BP 145/79
[2017-07-04] MEDS: ALBUTEROL SULF 2.5 MG/0.5ML(0.5%) NEB SOLN NEB SCH ×4 (00:44→19:16)
[2017-07-04] MEDS: IPRATROPIUM BROM 0.5 MG/2.5ML INH SOL NEB SCH ×4 (00:44→19:16)
[2017-07-04] MEDS: PIPERACILLIN-TAZOB 2.25GM 50 ML IV SCH ×5 (00:47→23:44)
[2017-07-04] MEDS: LABETALOL HCL 5 MG/ML ML 20ML VIAL IV PRN (00:57)
[2017-07-04 01:29] VITALS: BP 135/70
[2017-07-04] MEDS ORDERED: VANCOMYCIN 1GM/250ML 250 ML IV SCH (02:00)
[2017-07-04 05:00] VITALS: BP 149/83
[2017-07-04] MEDS: FUROSEMIDE 100 MG/10ML VIAL IV SCH ×2 (05:17→18:00)
[2017-07-04 06:40] LABS: Basophils # (auto) 0 uL; Basophils % (auto) 0.3 % (0.0-2.0); Eosinophils # (auto) 0.1 uL; Hemoglobin 10.9 g/dL (12.2-16.2); Lymphocytes # (auto) 1.4 uL; Neutrophils # (auto) 11.3 uL; Platelet Count (auto) 209 10^3/uL (140-450)
[2017-07-04 06:42] LABS: Eosinophils % (auto) 0.5 % (0.0-7.0); Hematocrit 32.9 % (36.0-46.0); Lymphocytes % (auto) 10.1 % (10.0-50.0); Mean Corpuscular Hemoglobin 27.5 pg (28.0-32.0); Mean Corpuscular Hgb Conc. 33.1 g/dL (32.0-36.0); Monocytes # (auto) 1.3 uL; Monocytes % (auto) 9.1 % (0.0-12.0); Nucleated Red Blood Cells % 0.1 %; Red Blood Cells 3.97 10^6/uL (4.0-5.20); Red Cell Distribution Width 15.9 % (11.8-14.3); White Blood Cell 14.1 10^3/uL (4.4-10.8)
[2017-07-04 07:02] LABS: Albumin 2.3 g/dL (3.4-5.0); BUN/Creatinine Ratio 14.3; Bilirubin, Total 0.6 mg/dL (0.2-1.0); Calcium 7.3 mg/dL (8.5-10.1); Potassium 3.2 mmol/L (3.5-5.1)
[2017-07-04 09:00] VITALS: BP 147/102
[2017-07-04] MEDS ORDERED: FUROSEMIDE 40 MG/4 ML VIAL IV SCH (10:00)
[2017-07-04 13:00] VITALS: BP 147/102
[2017-07-04 16:00] VITALS: BP 144/77
[2017-07-04 22:00] VITALS: BP 143/92
[2017-07-05] MEDS: ALBUTEROL SULF 2.5 MG/0.5ML(0.5%) NEB SOLN NEB SCH ×4 (00:53→18:59)
[2017-07-05] MEDS: IPRATROPIUM BROM 0.5 MG/2.5ML INH SOL NEB SCH ×4 (00:53→18:59)
[2017-07-05 05:00] VITALS: BP 140/75
[2017-07-05] MEDS: FUROSEMIDE 100 MG/10ML VIAL IV SCH (05:11)
[2017-07-05] MEDS: PIPERACILLIN-TAZOB 2.25GM 50 ML IV SCH ×3 (05:11→18:12)
[2017-07-05 07:17] LABS: Basophils # (auto) 0.1 uL; Basophils % (auto) 0.5 % (0.0-2.0); Eosinophils # (auto) 0.1 uL; Eosinophils % (auto) 0.5 % (0.0-7.0); Hematocrit 35.6 % (36.0-46.0); Hemoglobin 11.7 g/dL (12.2-16.2); Lymphocytes # (auto) 1.4 uL; Lymphocytes % (auto) 10.5 % (10.0-50.0); Mean Corpuscular Hemoglobin 27.2 pg (28.0-32.0); Mean Corpuscular Hgb Conc. 32.8 g/dL (32.0-36.0); Mean Corpuscular Volume 82.9 fL (80.0-100.0); Monocytes # (auto) 1.3 uL; Monocytes % (auto) 9.9 % (0.0-12.0); Neutrophils # (auto) 10.4 uL; Neutrophils % (auto) 78.6 % (37.0-80.0); Platelet Count (auto) 247 10^3/uL (140-450); Red Cell Distribution Width 15.9 % (11.8-14.3); White Blood Cell 13.2 10^3/uL (4.4-10.8)
[2017-07-05 07:47] LABS: Albumin 2.5 g/dL (3.4-5.0); BUN/Creatinine Ratio 13.9; Bilirubin, Total 0.8 mg/dL (0.2-1.0); Calcium 7.7 mg/dL (8.5-10.1); Potassium 3.1 mmol/L (3.5-5.1); Total Protein 6.7 g/dL (6.4-8.2)
[2017-07-05 09:21] VITALS: BP 159/83
[2017-07-05] MEDS: LABETALOL HCL 5 MG/ML ML 20ML VIAL IV PRN (12:44)
[2017-07-05 13:00] VITALS: BP 155/89
[2017-07-05] MEDS: POTASSIUM CHL 20 Meq TABLET PO SCH ×2 (14:11→18:12)
[2017-07-05 16:57] VITALS: BP 148/80
[2017-07-05] MEDS: FUROSEMIDE 40 MG/4 ML VIAL IV SCH (18:12)
[2017-07-05 22:00] VITALS: BP 145/79
[2017-07-06] MEDS: PIPERACILLIN-TAZOB 2.25GM 50 ML IV SCH ×5 (00:01→23:48)
[2017-07-06] MEDS: ALBUTEROL SULF 2.5 MG/0.5ML(0.5%) NEB SOLN NEB SCH ×4 (00:28→19:04)
[2017-07-06] MEDS: IPRATROPIUM BROM 0.5 MG/2.5ML INH SOL NEB SCH ×4 (00:28→19:04)
[2017-07-06 05:38] VITALS: BP 169/84
[2017-07-06] MEDS: LABETALOL HCL 5 MG/ML ML 20ML VIAL IV PRN (06:03)
[2017-07-06] MEDS: FUROSEMIDE 40 MG/4 ML VIAL IV SCH ×2 (06:03→18:00)
[2017-07-06] MEDS: HYDROcodone-ACET 5/325MG TAB PO PRN ×3 (06:04→23:49)
[2017-07-06 06:59] LABS: Albumin 2.4 g/dL (3.4-5.0); Calcium 7.8 mg/dL (8.5-10.1); Potassium 3.4 mmol/L (3.5-5.1)
[2017-07-06 07:02] LABS: BUN/Creatinine Ratio 14.4
[2017-07-06 07:04] LABS: Bilirubin, Total 0.5 mg/dL (0.2-1.0); Total Protein 6.3 g/dL (6.4-8.2)
[2017-07-06 09:00] VITALS: BP 160/88
[2017-07-06 13:00] VITALS: BP 135/83
[2017-07-06] MEDS: POTASSIUM CHL 20 Meq TABLET PO SCH (16:51)
[2017-07-06 17:56] VITALS: BP 166/107
[2017-07-06 22:00] VITALS: BP 145/92
[2017-07-07] MEDS: ALBUTEROL SULF 2.5 MG/0.5ML(0.5%) NEB SOLN NEB SCH ×4 (00:16→19:38)
[2017-07-07] MEDS: IPRATROPIUM BROM 0.5 MG/2.5ML INH SOL NEB SCH ×4 (00:16→19:38)
[2017-07-07 05:15] VITALS: BP 167/102
[2017-07-07] MEDS: FUROSEMIDE 40 MG/4 ML VIAL IV SCH ×2 (06:02→18:31)
[2017-07-07] MEDS: PIPERACILLIN-TAZOB 2.25GM 50 ML IV SCH ×4 (06:02→23:48)
[2017-07-07] MEDS: LABETALOL HCL 5 MG/ML ML 20ML VIAL IV PRN (06:02)
[2017-07-07 09:00] VITALS: BP 160/94
[2017-07-07] MEDS: POTASSIUM CHL 20 Meq TABLET PO SCH (10:43)
[2017-07-07 13:00] VITALS: BP 150/87
[2017-07-07 17:46] VITALS: BP 127/62
[2017-07-07] MEDS ORDERED: ERGOCALCIFEROL 50,000 UNIT(1.25MG) CAP PO SCH (18:00)
[2017-07-07] MEDS: SPIRONOLACTONE 25 MG TAB PO SCH (18:28)
[2017-07-07 22:38] VITALS: BP 114/67
[2017-07-08 05:59] VITALS: BP 166/73
[2017-07-08] MEDS: IPRATROPIUM BROM 0.5 MG/2.5ML INH SOL NEB SCH ×4 (06:00→18:16)
[2017-07-08] MEDS: ALBUTEROL SULF 2.5 MG/0.5ML(0.5%) NEB SOLN NEB SCH ×4 (06:00→18:16)
[2017-07-08] MEDS: SPIRONOLACTONE 25 MG TAB PO SCH ×2 (06:04→18:03)
[2017-07-08] MEDS: PIPERACILLIN-TAZOB 2.25GM 50 ML IV SCH ×4 (06:04→23:36)
[2017-07-08] MEDS: FUROSEMIDE 40 MG/4 ML VIAL IV SCH (06:04)
[2017-07-08] MEDS: LABETALOL HCL 5 MG/ML ML 20ML VIAL IV PRN ×2 (08:33→13:28)
[2017-07-08 09:00] VITALS: BP 161/103
[2017-07-08 09:24] LABS: Basophils # (auto) 0.1 uL; Eosinophils # (auto) 0.1 uL; Hemoglobin 11.4 g/dL (12.2-16.2); Monocytes # (auto) 0.9 uL; Neutrophils # (auto) 9.1 uL
[2017-07-08 09:27] LABS: Basophils % (auto) 0.8 % (0.0-2.0); Eosinophils % (auto) 0.9 % (0.0-7.0); Hematocrit 35.5 % (36.0-46.0); Lymphocytes # (auto) 1.5 uL; Lymphocytes % (auto) 13.1 % (10.0-50.0); Mean Corpuscular Hemoglobin 26.7 pg (28.0-32.0); Mean Corpuscular Hgb Conc. 32.1 g/dL (32.0-36.0); Mean Corpuscular Volume 83.1 fL (80.0-100.0); Neutrophils % (auto) 77.2 % (37.0-80.0); Platelet Count (auto) 349 10^3/uL (140-450); Red Blood Cells 4.28 10^6/uL (4.0-5.20); Red Cell Distribution Width 16.9 % (11.8-14.3); White Blood Cell 11.8 10^3/uL (4.4-10.8)
[2017-07-08 10:01] LABS: BUN/Creatinine Ratio 13.8; Calcium 8.5 mg/dL (8.5-10.1); Potassium 3.7 mmol/L (3.5-5.1)
[2017-07-08] MEDS: HYDROcodone-ACET 5/325MG TAB PO PRN (12:52)
[2017-07-08 13:00] VITALS: BP 130/75
[2017-07-08 17:00] VITALS: BP 144/89
[2017-07-08 22:00] VITALS: BP 109/74
[2017-07-08] MEDS ORDERED: METOPROLOL TARTRATE 1MG/1ML-5ML VIAL IV ONE (22:30)
[2017-07-08] MEDS ORDERED: DIGOXIN (250MCG/ML) 2 ML AMPULE IV ONE (23:45)
[2017-07-09] MEDS: ALBUTEROL SULF 2.5 MG/0.5ML(0.5%) NEB SOLN NEB SCH ×4 (00:30→18:41)
[2017-07-09] MEDS: IPRATROPIUM BROM 0.5 MG/2.5ML INH SOL NEB SCH ×4 (00:30→18:41)
[2017-07-09 05:00] VITALS: BP 105/59
[2017-07-09] MEDS: PIPERACILLIN-TAZOB 2.25GM 50 ML IV SCH ×3 (06:02→17:54)
[2017-07-09] MEDS: SPIRONOLACTONE 25 MG TAB PO SCH ×2 (06:09→17:54)
[2017-07-09 07:02] LABS: BUN/Creatinine Ratio 16.4; Calcium 8.4 mg/dL (8.5-10.1); Potassium 4.1 mmol/L (3.5-5.1)
[2017-07-09 09:00] VITALS: BP 160/91
[2017-07-09] MEDS ORDERED: FUROSEMIDE 40 MG/4 ML VIAL IV SCH (10:00)
[2017-07-09] MEDS: APIXABAN 2.5 MG TAB PO SCH ×2 (10:45→21:59)
[2017-07-09] MEDS: METOPROLOL TARTRATE 25 MG TAB PO SCH ×2 (10:46→21:59)
[2017-07-09 13:31] VITALS: BP 160/91
[2017-07-09 13:45] VITALS: BP 135/76
[2017-07-09] MEDS: HYDROcodone-ACET 5/325MG TAB PO PRN (14:00)
[2017-07-09 16:31] LABS: Protein, Urine 16.1 mg/dL (0.0-11.9)
[2017-07-09 17:00] VITALS: BP 152/91
[2017-07-09] MEDS: LABETALOL HCL 5 MG/ML ML 20ML VIAL IV PRN (17:15)
[2017-07-09 22:00] VITALS: BP 143/87
[2017-07-10] MEDS: ALBUTEROL SULF 2.5 MG/0.5ML(0.5%) NEB SOLN NEB SCH ×3 (00:25→11:38)
[2017-07-10] MEDS: IPRATROPIUM BROM 0.5 MG/2.5ML INH SOL NEB SCH ×3 (00:25→11:38)
[2017-07-10 05:00] VITALS: BP 149/97
[2017-07-10] MEDS: SPIRONOLACTONE 25 MG TAB PO SCH (05:50)
[2017-07-10] MEDS: PIPERACILLIN-TAZOB 2.25GM 50 ML IV SCH ×3 (05:50→13:23)
[2017-07-10 08:27] LABS: BUN/Creatinine Ratio 15.2; Calcium 8.5 mg/dL (8.5-10.1); Potassium 4.3 mmol/L (3.5-5.1)
[2017-07-10 09:00] VITALS: BP 150/74
[2017-07-10] MEDS ORDERED: FUROSEMIDE 20 MG TAB PO SCH (10:00)
[2017-07-10] MEDS: APIXABAN 2.5 MG TAB PO SCH (10:03)
[2017-07-10] MEDS: METOPROLOL TARTRATE 25 MG TAB PO SCH (10:04)
[2017-07-10 13:00] VITALS: BP 134/75
[2017-07-10 15:31] VITALS: BP 126/72
[2017-07-11] MEDS ORDERED: SPIRONOLACTONE 25 MG TAB PO SCH (10:00)
[2017-07-11] MEDS ORDERED: FUROSEMIDE 40 MG TAB PO SCH (10:00)
== END 2017-07-10 16:30 | disposition home or self-care (01) | DRG 720 ==
LOC: EDBD 19:24 → ER 19:24 → TELE 19:25 → TELE-WESTW 07-03 14:15
PROVIDERS: ADMIT Nurse Practitioner Family; ATTEND Internal Medicine
DX: A41.9 Sepsis, unspecified organism (principal); N17.0 Acute kidney failure with tubular necrosis; I21.A1 Myocardial infarction type 2; I50.43 Acute on chronic combined systolic (congestive) and diastolic (congestive) heart failure; E43 Unspecified severe protein-calorie malnutrition; I42.9 Cardiomyopathy, unspecified; E83.51 Hypocalcemia; I48.0 Paroxysmal atrial fibrillation; E11.22 Type 2 diabetes mellitus with diabetic chronic kidney disease; E86.0 Dehydration; I25.10 Atherosclerotic heart disease of native coronary artery without angina pectoris; F17.210 Nicotine dependence, cigarettes, uncomplicated; E87.6 Hypokalemia; N18.9 Chronic kidney disease, unspecified; J44.9 Chronic obstructive pulmonary disease, unspecified; I13.0 Hypertensive heart and chronic kidney disease with heart failure and stage 1 through stage 4 chronic kidney disease, or unspecified chronic kidney disease; F15.90 Other stimulant use, unspecified, uncomplicated; Z91.19 Patient's noncompliance with other medical treatment and regimen; Z83.3 Family history of diabetes mellitus; Z68.25 Body mass index [BMI] 25.0-25.9, adult; Z90.49 Acquired absence of other specified parts of digestive tract
CPT/HCPCS: 36415; 51702; 71045; 71250; 76775; 80048; 80053; 80307; 81001; 82043; 82306; 82570; 83605; 83735; 83880; 83970; 84100; 84156; 84300; 84484; 84550; 85025; 85379; 87040; 87081; 93005; 94640; 96365; 96375; 96376; 97116; 97163; 97530; J2543

== ENCOUNTER 2017-10-24 14:02 | Inpatient (IN) | payer MEDICAID ==
[~2017-10-24] VITALS: Ht 157.5 cm; Wt 70.1 kg
[~2017-10-24 14:02] MED LIST: LEVO-28 PO
[2017-10-24 19:31] LABS: Basophils # (auto) 0 uL; Basophils % (auto) 0.3 % (0.0-2.0); Eosinophils # (auto) 0.1 uL; Eosinophils % (auto) 0.5 % (0.0-7.0); Hematocrit 37.2 % (36.0-46.0); Hemoglobin 12.1 g/dL (12.2-16.2); Lymphocytes # (auto) 1.1 uL; Lymphocytes % (auto) 9.5 % (10.0-50.0); Mean Corpuscular Hemoglobin 27.1 pg (28.0-32.0); Mean Corpuscular Hgb Conc. 32.5 g/dL (32.0-36.0); Mean Corpuscular Volume 83.3 fL (80.0-100.0); Monocytes # (auto) 1.2 uL; Monocytes % (auto) 9.9 % (0.0-12.0); Neutrophils # (auto) 9.4 uL; Neutrophils % (auto) 79.8 % (37.0-80.0); Nucleated Red Blood Cells % 0.1 %; Platelet Count (auto) 314 10^3/uL (140-450); Red Blood Cells 4.47 10^6/uL (4.0-5.20); Red Cell Distribution Width 15.3 % (11.8-14.3); White Blood Cell 11.8 10^3/uL (4.4-10.8)
[2017-10-24 19:45] LABS: Albumin 3.2 g/dL (3.4-5.0); BUN/Creatinine Ratio 15.6; Calcium 8.5 mg/dL (8.5-10.1); Potassium 3.9 mmol/L (3.5-5.1)
[2017-10-24 19:47] LABS: Bilirubin, Total 1.2 mg/dL (0.2-1.0); Total Protein 8.1 g/dL (6.4-8.2)
[2017-10-25] VITALS (9 sets, daily range): BP systolic 109–143; BP diastolic 53–106
[2017-10-25] MEDS ORDERED: LEVOFLOXACIN 250 MG TAB PO ONE (00:15)
[2017-10-25] MEDS ORDERED: SODIUM CHLORIDE 0.9% 1,000 ML IV ONE (00:15)
[2017-10-25] MEDS ORDERED: FUROSEMIDE 20 MG/2 ML VIAL IV ONE (03:45)
[2017-10-25] MEDS ORDERED: MORPHINE SULFATE 4 MG/ML SYR/VIAL IV PRN (05:00)
[2017-10-25] MEDS ORDERED: HYDROcodone-ACET 5/325MG TAB PO PRN (05:00)
[2017-10-25] MEDS ORDERED: ACETAMINOPHEN 325 MG TAB PO PRN (05:00)
[2017-10-25] MEDS ORDERED: NITROGLYCERIN 0.4 MG SL TAB SL PRN (05:00)
[2017-10-25] MEDS ORDERED: TEMAZEPAM 15 MG CAP PO PRN (05:00)
[2017-10-25] MEDS ORDERED: ONDANSETRON HCL 4 MG/2 ML VIAL IV PRN (05:00)
[2017-10-25] MEDS ORDERED: cloNIDine HCL 0.1 MG TAB PO PRN (05:00)
[2017-10-25] MEDS: FUROSEMIDE 20 MG/2 ML VIAL IV SCH ×2 (06:00→18:29)
[2017-10-25] MEDS ORDERED: AMIODARONE HCL 150 MG in D5W 5% 100 ML IV ONE (09:30)
[2017-10-25 09:34] LABS: Urine Bacteria FEW /hpf (None Seen); Urine Blood Negative /uL (Negative); Urine Specific Gravity 1.008 (1.001-1.035); Urine WBC <1 /hpf (0 - 5)
[2017-10-25 09:57] LABS: Alcohol, Urine < 3.0 mg/dL (0-5); Amphetamine Screen, Urine POSITIVE (NEGATIVE); Barbiturate Scree,Urine NEGATIVE (NEGATIVE); Benzodiazephine Screen, Urine NEGATIVE (NEGATIVE); Cannabinoid Screen, Urine NEGATIVE (NEGATIVE); Cocaine Screen, Urine NEGATIVE (NEGATIVE); Opiate Scree,Urine NEGATIVE (NEGATIVE); Phencyclidine Screen, Urine NEGATIVE (NEGATIVE)
[2017-10-25] MEDS: LEVOFLOXACIN 750MG 150 ML IV SCH (09:58)
[2017-10-25] MEDS: ASPirin 81 mg TAB PO SCH (09:59)
[2017-10-25] MEDS ORDERED: CARVEDILOL 3.125 MG TAB PO SCH (10:00)
[2017-10-25] MEDS: ENOXAPARIN SOD 40 MG/0.4 ML SYRINGE SC SCH (10:00)
[2017-10-25] MEDS: FAMOTIDINE 20 MG TAB PO SCH ×2 (10:00→21:47)
[2017-10-25] MEDS ORDERED: METOPROLOL TARTRATE 1MG/1ML-5ML VIAL IV ONE ×3 (10:15→11:00)
[2017-10-25] MEDS ORDERED: AMIODARONE HCL 200 MG TAB PO ONE (13:30)
[2017-10-25] MEDS ORDERED: METOPROLOL TARTRATE 1MG/1ML-5ML VIAL IV SCH (15:27)
[2017-10-25] MEDS ORDERED: fentaNYL CITRATE 100 MCG/2 ML VL IV ONE ×2 (17:00→17:15)
[2017-10-25] MEDS ORDERED: MIDAZOLAM HCL 1MG/1ML-2 ML VIAL IV ONE (17:00)
[2017-10-25] MEDS ORDERED: MIDAZOLAM HCL 5 MG/ML-1ML VIAL ONE (17:03)
[2017-10-25] MEDS ORDERED: fentaNYL CITRATE 100 MCG/2 ML VL ONE (17:06)
[2017-10-25] MEDS ORDERED: MIDAZOLAM HCL 5 MG/ML-1ML VIAL IV ONE (17:15)
[2017-10-25] MEDS ORDERED: POTASSIUM CHL 20 Meq TABLET PO ONE (17:45)
[2017-10-25] MEDS ORDERED: MAGNESIUM OXIDE 400 MG TAB PO ONE (17:45)
[2017-10-25] MEDS: METOPROLOL TARTRATE 1MG/1ML-5ML VIAL IV SCH (21:19)
[2017-10-25] MEDS: PRAVASTATIN SODIUM 20 MG TAB PO SCH (21:47)
[2017-10-25] MEDS: AMIODARONE HCL 200 MG TAB PO SCH (21:48)
[2017-10-25] MEDS ORDERED: AMIODARONE HCL 200 MG TAB PO SCH (22:00)
[2017-10-25] MEDS ORDERED: PATIENTS OWN MEDICATION (simvastatin 10 MG) PO SCH (22:00)
[2017-10-26] MEDS: METOPROLOL TARTRATE 1MG/1ML-5ML VIAL IV SCH (03:27)
[2017-10-26 04:59] VITALS: BP 132/75
[2017-10-26] MEDS: FUROSEMIDE 20 MG/2 ML VIAL IV SCH ×2 (05:24→18:38)
[2017-10-26 05:50] LABS: Basophils # (auto) 0 uL; Basophils % (auto) 0.5 % (0.0-2.0); Eosinophils # (auto) 0.1 uL; Eosinophils % (auto) 1.3 % (0.0-7.0); Hematocrit 38.3 % (36.0-46.0); Hemoglobin 12.4 g/dL (12.2-16.2); Lymphocytes # (auto) 2.1 uL; Lymphocytes % (auto) 22.3 % (10.0-50.0); Mean Corpuscular Hemoglobin 27.3 pg (28.0-32.0); Mean Corpuscular Hgb Conc. 32.3 g/dL (32.0-36.0); Mean Corpuscular Volume 84.4 fL (80.0-100.0); Monocytes # (auto) 0.9 uL; Monocytes % (auto) 10.1 % (0.0-12.0); Neutrophils # (auto) 6.1 uL; Neutrophils % (auto) 65.8 % (37.0-80.0); Nucleated Red Blood Cells % 0.1 %; Platelet Count (auto) 333 10^3/uL (140-450); Red Blood Cells 4.53 10^6/uL (4.0-5.20); White Blood Cell 9.3 10^3/uL (4.4-10.8)
[2017-10-26 06:22] LABS: Albumin 2.7 g/dL (3.4-5.0); Potassium 4.5 mmol/L (3.5-5.1)
[2017-10-26 06:25] LABS: BUN/Creatinine Ratio 21.9; Bilirubin, Total 0.5 mg/dL (0.2-1.0); Calcium 8.3 mg/dL (8.5-10.1); Total Protein 7.2 g/dL (6.4-8.2)
[2017-10-26] MEDS ORDERED: SIMV10TA84 PO (07:54)
[2017-10-26] MEDS ORDERED: ASP81EC PO (07:54)
[2017-10-26] MEDS ORDERED: CLON0.1T PO (07:54)
[2017-10-26 09:00] VITALS: BP 138/87
[2017-10-26] MEDS: LEVOFLOXACIN 750MG 150 ML IV SCH (10:11)
[2017-10-26] MEDS: APIXABAN 2.5 MG TAB PO SCH ×2 (10:12→21:38)
[2017-10-26] MEDS: METOPROLOL TARTRATE 25 MG TAB PO SCH ×2 (10:12→21:39)
[2017-10-26] MEDS: ENOXAPARIN SOD 40 MG/0.4 ML SYRINGE SC SCH (10:12)
[2017-10-26] MEDS: AMIODARONE HCL 200 MG TAB PO SCH ×2 (10:12→21:38)
[2017-10-26] MEDS: FAMOTIDINE 20 MG TAB PO SCH ×2 (10:12→21:38)
[2017-10-26] MEDS: ASPirin 81 mg TAB PO SCH (10:13)
[2017-10-26 13:00] VITALS: BP 122/76
[2017-10-26] MEDS: DOXYCYCLINE 100MG/250ML 250 ML IV SCH (16:44)
[2017-10-26 17:01] VITALS: BP 142/86
[2017-10-26 20:00] VITALS: BP 151/84
[2017-10-26] MEDS: PRAVASTATIN SODIUM 20 MG TAB PO SCH (21:38)
[2017-10-26 21:58] VITALS: BP 136/72
[2017-10-27] MEDS: DOXYCYCLINE 100MG/250ML 250 ML IV SCH (04:26)
[2017-10-27 05:07] VITALS: BP 148/92
[2017-10-27] MEDS: FUROSEMIDE 20 MG/2 ML VIAL IV SCH (06:21)
[2017-10-27 08:00] VITALS: BP 148/92
[2017-10-27 08:30] VITALS: BP 154/92
[2017-10-27] MEDS: FAMOTIDINE 20 MG TAB PO SCH (10:00)
[2017-10-27] MEDS: AMIODARONE HCL 200 MG TAB PO SCH (10:30)
[2017-10-27] MEDS: METOPROLOL TARTRATE 25 MG TAB PO SCH (10:30)
[2017-10-27] MEDS: ASPirin 81 mg TAB PO SCH (10:32)
[2017-10-27] MEDS: LEVOFLOXACIN 750MG 150 ML IV SCH (10:32)
[2017-10-27] MEDS: APIXABAN 2.5 MG TAB PO SCH (10:35)
[2017-10-27 12:30] VITALS: BP 143/85
[2017-10-27 13:25] VITALS: BP 143/85
== END 2017-10-27 14:32 | disposition home or self-care (01) | DRG 139 ==
LOC: ER 14:02 → EDBD 14:02 → EDUNIT# 14:02 → TELE 14:03 → TELE-EAST 10-25 11:55
PROVIDERS: ADMIT Nurse Practitioner; ATTEND Internal Medicine
PROC: 5A2204Z Restoration of Cardiac Rhythm, Single (ICD-10-PCS; principal; 2017-10-25)
DX: J18.1 Lobar pneumonia, unspecified organism (principal); I21.4 Non-ST elevation (NSTEMI) myocardial infarction; I50.43 Acute on chronic combined systolic (congestive) and diastolic (congestive) heart failure; E44.0 Moderate protein-calorie malnutrition; I13.0 Hypertensive heart and chronic kidney disease with heart failure and stage 1 through stage 4 chronic kidney disease, or unspecified chronic kidney disease; I42.7 Cardiomyopathy due to drug and external agent; J44.0 Chronic obstructive pulmonary disease with (acute) lower respiratory infection; I48.1 Persistent atrial fibrillation; I50.9 Heart failure, unspecified; I48.92 Unspecified atrial flutter; N18.9 Chronic kidney disease, unspecified; G47.00 Insomnia, unspecified; T50.995A Adverse effect of other drugs, medicaments and biological substances, initial encounter; F15.90 Other stimulant use, unspecified, uncomplicated; E78.5 Hyperlipidemia, unspecified; I25.2 Old myocardial infarction; Z83.3 Family history of diabetes mellitus; Z87.891 Personal history of nicotine dependence; Z91.19 Patient's noncompliance with other medical treatment and regimen; Z90.49 Acquired absence of other specified parts of digestive tract; Z90.89 Acquired absence of other organs; Y92.89 Other specified places as the place of occurrence of the external cause
CPT/HCPCS: 36415; 70450; 71045; 80053; 80307; 81001; 83880; 84484; 85025; 87040; 87081; 93005; 96361; 96365; 96375; J1956; J2250; J3490; J7060

== ENCOUNTER 2017-11-04 01:04 | Inpatient (IN) | payer MEDICAID ==
[~2017-11-04] VITALS: Ht 160 cm; Wt 70.1 kg
[~2017-11-04 01:04] MED LIST changes: +ASP81EC PO; +CLON0.1T PO; -LEVO-28 PO; +SIMV10TA84 PO
[2017-11-04 01:35] LABS: Eosinophils # (auto) 0.1 uL; White Blood Cell 12.2 10^3/uL (4.4-10.8)
[2017-11-04 01:37] LABS: Basophils # (auto) 0.2 uL; Basophils % (auto) 1.3 % (0.0-2.0); Eosinophils % (auto) 0.7 % (0.0-7.0); Hematocrit 39.9 % (36.0-46.0); Lymphocytes # (auto) 1.9 uL; Lymphocytes % (auto) 15.7 % (10.0-50.0); Mean Corpuscular Hemoglobin 27.1 pg (28.0-32.0); Mean Corpuscular Hgb Conc. 32.4 g/dL (32.0-36.0); Mean Corpuscular Volume 83.4 fL (80.0-100.0); Monocytes # (auto) 0.8 uL; Monocytes % (auto) 6.8 % (0.0-12.0); Neutrophils # (auto) 9.2 uL; Neutrophils % (auto) 75.5 % (37.0-80.0); Nucleated Red Blood Cells % 0.1 %; Platelet Count (auto) 318 10^3/uL (140-450); Red Blood Cells 4.79 10^6/uL (4.0-5.20); Red Cell Distribution Width 15.6 % (11.8-14.3)
[2017-11-04 01:52] LABS: INR 1.07 (0.9-1.15); Partial Thromboplastin Time 24.9 sec (23.78-33.04); Prothrombin Time 11.4 sec (9.27-12.13)
[2017-11-04 01:56] LABS: BUN/Creatinine Ratio 18.6; Calcium 8.2 mg/dL (8.5-10.1); Potassium 3.7 mmol/L (3.5-5.1)
[2017-11-04] MEDS ORDERED: DIGOXIN (250MCG/ML) 2 ML AMPULE IV ONE (02:00)
[2017-11-04] MEDS ORDERED: LABETALOL HCL 200 MG TAB PO ONE (02:00)
[2017-11-04 02:12] LABS: Bilirubin, Total 1.1 mg/dL (0.2-1.0); Total Protein 7.4 g/dL (6.4-8.2)
[2017-11-04] MEDS ORDERED: FUROSEMIDE 20 MG/2 ML VIAL IV ONE (03:45)
[2017-11-04 06:03] LABS: Urine Bacteria FEW /hpf (None Seen); Urine Blood Negative /uL (Negative); Urine Hyaline Cast FEW /lpf (0 - 2); Urine Specific Gravity 1.016 (1.001-1.035); Urine WBC 2 /hpf (0 - 5)
[2017-11-04] MEDS ORDERED: ENOXAPARIN SOD 80 MG/0.8ML SYRINGE SC ONE (06:30)
[2017-11-04 06:46] LABS: Alcohol, Urine < 3.0 mg/dL (0-5); Amphetamine Screen, Urine POSITIVE (NEGATIVE); Barbiturate Scree,Urine NEGATIVE (NEGATIVE); Benzodiazephine Screen, Urine NEGATIVE (NEGATIVE); Cannabinoid Screen, Urine NEGATIVE (NEGATIVE); Cocaine Screen, Urine NEGATIVE (NEGATIVE); Opiate Scree,Urine NEGATIVE (NEGATIVE); Phencyclidine Screen, Urine NEGATIVE (NEGATIVE)
[2017-11-04] MEDS ORDERED: FUROSEMIDE 40 MG/4 ML VIAL IV ONE (07:30)
[2017-11-04] MEDS: cloNIDine HCL 0.1 MG TAB PO SCH ×3 (08:07→22:12)
[2017-11-04] MEDS: CARVEDILOL 3.125 MG TAB PO SCH ×2 (10:45→22:12)
[2017-11-04] MEDS: ASPirin-EC 81 mg tab PO SCH (10:45)
[2017-11-04 16:00] VITALS: BP 138/72
[2017-11-04 22:00] VITALS: BP 149/73
[2017-11-04] MEDS ORDERED: ATORVASTATIN 20 MG TAB PO SCH (22:00)
[2017-11-05] MEDS ORDERED: MORPHINE SULFATE 4 MG/ML SYR/VIAL IV PRN (02:45)
[2017-11-05] MEDS ORDERED: NITROGLYCERIN 0.4 MG SL TAB SL PRN (02:45)
[2017-11-05] MEDS ORDERED: METOPROLOL TARTRATE 1MG/1ML-5ML VIAL IV ONE (02:45)
[2017-11-05] MEDS: cloNIDine HCL 0.1 MG TAB PO SCH ×2 (05:25→15:39)
[2017-11-05 05:40] VITALS: BP 113/87
[2017-11-05 08:00] VITALS: BP 113/85
[2017-11-05 09:00] VITALS: BP 113/85
[2017-11-05] MEDS ORDERED: METOPROLOL TARTRATE 25 MG TAB PO SCH (10:00)
[2017-11-05] MEDS ORDERED: ENOXAPARIN SOD 80 MG/0.8ML SYRINGE SC SCH (10:00)
[2017-11-05] MEDS: ASPirin-EC 81 mg tab PO SCH (10:54)
[2017-11-05] MEDS: CARVEDILOL 3.125 MG TAB PO SCH (10:55)
[2017-11-05 12:00] VITALS: BP 104/71
[2017-11-05 16:45] VITALS: BP 104/71
== END 2017-11-05 17:20 | disposition home or self-care (01) | DRG 194 ==
LOC: ER 01:04 → EDBD 01:04 → TELE 01:05 → TELE-EAST 15:58
PROVIDERS: ADMIT Nurse Practitioner Family; ATTEND Internal Medicine
DX: I11.0 Hypertensive heart disease with heart failure (principal); I21.4 Non-ST elevation (NSTEMI) myocardial infarction; D68.69 Other thrombophilia; Z95.1 Presence of aortocoronary bypass graft; I50.33 Acute on chronic diastolic (congestive) heart failure; E44.1 Mild protein-calorie malnutrition; I48.91 Unspecified atrial fibrillation; D72.829 Elevated white blood cell count, unspecified; F17.210 Nicotine dependence, cigarettes, uncomplicated; E78.00 Pure hypercholesterolemia, unspecified; N28.9 Disorder of kidney and ureter, unspecified; R74.8 Abnormal levels of other serum enzymes; R79.89 Other specified abnormal findings of blood chemistry; I25.10 Atherosclerotic heart disease of native coronary artery without angina pectoris; E78.5 Hyperlipidemia, unspecified; F15.10 Other stimulant abuse, uncomplicated; J44.9 Chronic obstructive pulmonary disease, unspecified; Z91.19 Patient's noncompliance with other medical treatment and regimen; Z68.27 Body mass index [BMI] 27.0-27.9, adult; I25.2 Old myocardial infarction; Z83.3 Family history of diabetes mellitus; Z79.899 Other long term (current) drug therapy; Z90.49 Acquired absence of other specified parts of digestive tract; Z90.89 Acquired absence of other organs
CPT/HCPCS: 36415; 51702; 71045; 80053; 80307; 81001; 83880; 84484; 85025; 85610; 85730; 87081; 93005; 94761; 96372; 96374; 96375

== ENCOUNTER 2017-11-07 15:32 | Emergency (ER) | payer MEDICAID ==
[~2017-11-07] VITALS: Ht 160 cm; Wt 68.0 kg
[2017-11-07 15:42] VITALS: BP 162/73
== END 2017-11-07 23:25 | disposition left against medical advice (07) ==
LOC: EDBD 15:32 → ER 15:32
DX: R07.9 Chest pain, unspecified (principal); R11.2 Nausea with vomiting, unspecified; R10.9 Unspecified abdominal pain; Z53.21 Procedure and treatment not carried out due to patient leaving prior to being seen by health care provider; R19.7 Diarrhea, unspecified
CPT/HCPCS: 93005

== ENCOUNTER 2017-11-09 23:41 | Inpatient (IN) | payer MEDICAID ==
[~2017-11-09] VITALS: Ht 162.6 cm; Wt 71.2 kg
[2017-11-10] VITALS (11 sets, daily range): BP systolic 95–149; BP diastolic 54–109
[2017-11-10] MEDS ORDERED: DOPamine 1600MCG/ML D5W 250 ML IV ONE (00:15)
[2017-11-10] MEDS ORDERED: ONDANSETRON HCL 4 MG/2 ML VIAL ONE (01:56)
[2017-11-10 02:12] LABS: Basophils # (auto) 0.1 uL; Eosinophils # (auto) 0.1 uL; Lymphocytes # (auto) 1.9 uL; Monocytes # (auto) 0.8 uL; Neutrophils # (auto) 11.2 uL; Red Blood Cells 4.42 10^6/uL (4.0-5.20)
[2017-11-10 02:15] LABS: Basophils % (auto) 0.7 % (0.0-2.0); Eosinophils % (auto) 0.5 % (0.0-7.0); Hemoglobin 11.9 g/dL (12.2-16.2); Lymphocytes % (auto) 13.4 % (10.0-50.0); Mean Corpuscular Hgb Conc. 32.2 g/dL (32.0-36.0); Mean Corpuscular Volume 83.7 fL (80.0-100.0); Monocytes % (auto) 5.4 % (0.0-12.0); Nucleated Red Blood Cells % 0.1 %; Platelet Count (auto) 318 10^3/uL (140-450); Red Cell Distribution Width 15.8 % (11.8-14.3)
[2017-11-10 02:24] LABS: INR 1.28 (0.9-1.15); Partial Thromboplastin Time 25.7 sec (23.78-33.04); Prothrombin Time 13.5 sec (9.27-12.13)
[2017-11-10 02:32] LABS: Albumin 2.6 g/dL (3.4-5.0); BUN/Creatinine Ratio 20.7; Calcium 7.7 mg/dL (8.5-10.1); Potassium 4.9 mmol/L (3.5-5.1)
[2017-11-10 02:36] LABS: Bilirubin, Total 0.3 mg/dL (0.2-1.0); Total Protein 6.3 g/dL (6.4-8.2)
[2017-11-10] MEDS ORDERED: FAMOTIDINE (10MG/ML) 2ML VL IV ONE (03:00)
[2017-11-10] MEDS ORDERED: ONDANSETRON HCL 4 MG/2 ML VIAL IV ONE (03:15)
[2017-11-10] MEDS ORDERED: SUCCINYLCHOLINE CHLORIDE 20 MG/ML 10ML VIAL IV ONE ×2 (04:00→05:00)
[2017-11-10] MEDS ORDERED: PROMETHAZINE HCL 25 MG/ML 1ML IV ONE (04:00)
[2017-11-10] MEDS ORDERED: ETOMIDATE (2MG/ML) 20ML VIAL IV ONE ×2 (04:00→05:00)
[2017-11-10] MEDS: MIDAZOLAM DRIP 50 mg/50mL 50 ML IV SCH ×2 (04:21→06:40)
[2017-11-10] MEDS ORDERED: MIDAZOLAM DRIP 50 mg/50mL 50 ML IV ONE (04:21)
[2017-11-10] MEDS ORDERED: cefTRIAXone 1GM/10ml IVPUSH 10 ML IV ONE (04:30)
[2017-11-10] MEDS ORDERED: PROPOFOL 100 ML IV ONE (04:46)
[2017-11-10] MEDS: PROPOFOL 100 ML IV SCH (05:40)
[2017-11-10 05:42] LABS: Alcohol, Urine < 3.0 mg/dL (0-5); Amphetamine Screen, Urine NEGATIVE (NEGATIVE); Barbiturate Scree,Urine NEGATIVE (NEGATIVE); Benzodiazephine Screen, Urine NEGATIVE (NEGATIVE); Cannabinoid Screen, Urine POSITIVE (NEGATIVE); Cocaine Screen, Urine NEGATIVE (NEGATIVE); Opiate Scree,Urine NEGATIVE (NEGATIVE); Phencyclidine Screen, Urine NEGATIVE (NEGATIVE)
[2017-11-10] MEDS ORDERED: LORazepam 2MG/ML-1ML VIAL IV PRN (07:00)
[2017-11-10] MEDS ORDERED: ONDANSETRON HCL 4 MG/2 ML VIAL IV PRN (07:00)
[2017-11-10] MEDS ORDERED: metroNIDAZOLE 500MG/100ML 100 ML IV ONE (09:15)
[2017-11-10] MEDS ORDERED: FUROSEMIDE 40 MG/4 ML VIAL IV ONE (09:15)
[2017-11-10] MEDS: PANTOPRAZOLE 40 MG/10 ML VIAL IV SCH (09:56)
[2017-11-10] MEDS: ENOXAPARIN SOD 80 MG/0.8ML SYRINGE SC SCH (09:56)
[2017-11-10] MEDS ORDERED: ENOXAPARIN SOD 60 MG/0.6 ML SYRINGE SC SCH (10:00)
[2017-11-10] MEDS: ALBUTEROL SULF 2.5 MG/0.5ML(0.5%) NEB SOLN NEB SCH ×2 (11:45→18:00)
[2017-11-10] MEDS: IPRATROPIUM BROM 0.5 MG/2.5ML INH SOL NEB SCH ×2 (11:45→18:00)
[2017-11-10 13:29] LABS: Urine Bacteria FEW /hpf (None Seen); Urine Blood 1+ /uL (Negative); Urine Specific Gravity 1.005 (1.001-1.035); Urine WBC 1 /hpf (0 - 5)
[2017-11-10] MEDS: metroNIDAZOLE 500MG/100ML 100 ML IV SCH ×2 (14:17→22:31)
[2017-11-11] VITALS (39 sets, daily range): BP systolic 78–181; BP diastolic 42–97
[2017-11-11] MEDS: PROPOFOL 100 ML IV SCH ×2 (04:50→22:30)
[2017-11-11] MEDS ORDERED: DOPamine 1600MCG/ML D5W 250 ML IV ONE (05:31)
[2017-11-11] MEDS: ALBUTEROL SULF 2.5 MG/0.5ML(0.5%) NEB SOLN NEB SCH ×4 (06:00→18:04)
[2017-11-11] MEDS: IPRATROPIUM BROM 0.5 MG/2.5ML INH SOL NEB SCH ×4 (06:00→18:04)
[2017-11-11] MEDS: metroNIDAZOLE 500MG/100ML 100 ML IV SCH ×3 (06:23→22:30)
[2017-11-11] MEDS: PANTOPRAZOLE 40 MG/10 ML VIAL IV SCH (10:42)
[2017-11-11] MEDS: ENOXAPARIN SOD 80 MG/0.8ML SYRINGE SC SCH (10:42)
[2017-11-11 12:04] LABS: Basophils # (auto) 0.1 uL; Basophils % (auto) 0.7 % (0.0-2.0); Eosinophils # (auto) 0.1 uL; Eosinophils % (auto) 0.8 % (0.0-7.0); Hematocrit 40.7 % (36.0-46.0); Hemoglobin 13.5 g/dL (12.2-16.2); Lymphocytes # (auto) 1.7 uL; Lymphocytes % (auto) 15.6 % (10.0-50.0); Mean Corpuscular Hemoglobin 27.3 pg (28.0-32.0); Mean Corpuscular Hgb Conc. 33.2 g/dL (32.0-36.0); Mean Corpuscular Volume 82.2 fL (80.0-100.0); Monocytes # (auto) 0.7 uL; Monocytes % (auto) 6.3 % (0.0-12.0); Neutrophils # (auto) 8.3 uL; Neutrophils % (auto) 76.6 % (37.0-80.0); Platelet Count (auto) 315 10^3/uL (140-450); Red Blood Cells 4.95 10^6/uL (4.0-5.20); White Blood Cell 10.9 10^3/uL (4.4-10.8)
[2017-11-11] MEDS: DOXYCYCLINE 100MG/250ML 250 ML IV SCH (12:06)
[2017-11-11 12:23] LABS: Albumin 2.8 g/dL (3.4-5.0); BUN/Creatinine Ratio 15.1; Bilirubin, Total 0.6 mg/dL (0.2-1.0); Calcium 8.3 mg/dL (8.5-10.1); Potassium 3.7 mmol/L (3.5-5.1); Total Protein 6.7 g/dL (6.4-8.2)
[2017-11-11] MEDS ORDERED: LEVOTHYROXINE SODIUM 100 MCG/5 ML INJ IV SCH (12:30)
[2017-11-11] MEDS: DOPamine 1600MCG/ML D5W 250 ML IV SCH (13:58)
[2017-11-11] MEDS ORDERED: NOREPINEPHRINE 8 MG/250ML KIT 250 ML IV ONE (18:50)
[2017-11-11] MEDS: NOREPINEPHRINE 8 MG/250ML KIT 250 ML IV SCH (19:05)
[2017-11-11] MEDS: MIDAZOLAM DRIP 50 mg/50mL 50 ML IV SCH ×2 (19:28→23:50)
[2017-11-11] MEDS ORDERED: ALBUMIN 5% 0 ML IV ONE (20:11)
[2017-11-11] MEDS: HYDROCORTISONE SOD SUCC 100 MG/2ML INJ VIAL IV SCH (22:30)
[2017-11-12] VITALS (100 sets, daily range): BP systolic 81–165; BP diastolic 36–114
[2017-11-12] MEDS: ALBUTEROL SULF 2.5 MG/0.5ML(0.5%) NEB SOLN NEB SCH ×4 (00:03→18:00)
[2017-11-12] MEDS: IPRATROPIUM BROM 0.5 MG/2.5ML INH SOL NEB SCH ×4 (00:03→18:53)
[2017-11-12] MEDS: DOXYCYCLINE 100MG/250ML 250 ML IV SCH ×2 (00:25→11:41)
[2017-11-12 04:08] LABS: Basophils # (auto) 0 uL; Basophils % (auto) 0.5 % (0.0-2.0); Eosinophils # (auto) 0 uL; Eosinophils % (auto) 0.3 % (0.0-7.0); Hematocrit 41.2 % (36.0-46.0); Hemoglobin 13.4 g/dL (12.2-16.2); Lymphocytes % (auto) 13.6 % (10.0-50.0); Mean Corpuscular Hemoglobin 27.5 pg (28.0-32.0); Mean Corpuscular Hgb Conc. 32.4 g/dL (32.0-36.0); Mean Corpuscular Volume 84.8 fL (80.0-100.0); Monocytes # (auto) 0.4 uL; Neutrophils % (auto) 80.6 % (37.0-80.0); Platelet Count (auto) 266 10^3/uL (140-450); Red Blood Cells 4.86 10^6/uL (4.0-5.20); Red Cell Distribution Width 16.3 % (11.8-14.3); White Blood Cell 7.4 10^3/uL (4.4-10.8)
[2017-11-12 04:41] LABS: BUN/Creatinine Ratio 13.1; Bilirubin, Total 0.8 mg/dL (0.2-1.0); Calcium 8.5 mg/dL (8.5-10.1); Potassium 3.9 mmol/L (3.5-5.1)
[2017-11-12] MEDS: MIDAZOLAM DRIP 50 mg/50mL 50 ML IV SCH (04:50)
[2017-11-12] MEDS: PROPOFOL 100 ML IV SCH (04:50)
[2017-11-12] MEDS: metroNIDAZOLE 500MG/100ML 100 ML IV SCH ×3 (06:23→22:30)
[2017-11-12] MEDS: LEVOTHYROXINE SODIUM 100 MCG/5 ML INJ IV SCH (06:34)
[2017-11-12] MEDS: DOPamine 1600MCG/ML D5W 250 ML IV SCH (07:22)
[2017-11-12] MEDS: HYDROCORTISONE SOD SUCC 100 MG/2ML INJ VIAL IV SCH ×2 (10:00→22:30)
[2017-11-12] MEDS: PANTOPRAZOLE 40 MG/10 ML VIAL IV SCH (10:00)
[2017-11-12] MEDS: ENOXAPARIN SOD 80 MG/0.8ML SYRINGE SC SCH (10:00)
[2017-11-12] MEDS ORDERED: FUROSEMIDE 40 MG/4 ML VIAL IV STA (10:48)
[2017-11-12] MEDS ORDERED: AMIODARONE HCL 200 MG TAB PO ONE (15:15)
[2017-11-12] MEDS ORDERED: METOPROLOL SUCCINATE XL 50 MG TAB PO ONE (16:15)
[2017-11-12] MEDS ORDERED: Fibersource Hn 1 Liter GT SCH (17:45)
[2017-11-12] MEDS: FUROSEMIDE 40 MG/4 ML VIAL IV SCH (18:33)
[2017-11-12] MEDS: NOREPINEPHRINE 8 MG/250ML KIT 250 ML IV SCH (19:00)
[2017-11-12] MEDS ORDERED: METOPROLOL SUCCINATE XL 50 MG TAB PO SCH (22:00)
[2017-11-12] MEDS: AMIODARONE HCL 200 MG TAB PO SCH (23:16)
[2017-11-13] VITALS (90 sets, daily range): BP systolic 85–151; BP diastolic 38–108
[2017-11-13] MEDS: IPRATROPIUM BROM 0.5 MG/2.5ML INH SOL NEB SCH ×4 (00:23→18:56)
[2017-11-13 03:38] LABS: Basophils # (auto) 0 uL; Basophils % (auto) 0.3 % (0.0-2.0); Eosinophils # (auto) 0 uL; Eosinophils % (auto) 0.1 % (0.0-7.0); Hemoglobin 11.6 g/dL (12.2-16.2); Mean Corpuscular Hemoglobin 26.7 pg (28.0-32.0); Monocytes # (auto) 0.3 uL; Neutrophils % (auto) 88.5 % (37.0-80.0); Red Blood Cells 4.34 10^6/uL (4.0-5.20); Red Cell Distribution Width 16.2 % (11.8-14.3)
[2017-11-13 03:41] LABS: Hematocrit 35.5 % (36.0-46.0); Lymphocytes # (auto) 0.7 uL; Lymphocytes % (auto) 7.6 % (10.0-50.0); Mean Corpuscular Hgb Conc. 32.6 g/dL (32.0-36.0); Mean Corpuscular Volume 81.8 fL (80.0-100.0); Monocytes % (auto) 3.5 % (0.0-12.0); Neutrophils # (auto) 8.7 uL; Platelet Count (auto) 281 10^3/uL (140-450); White Blood Cell 9.8 10^3/uL (4.4-10.8)
[2017-11-13 03:58] LABS: Albumin 2.6 g/dL (3.4-5.0); Calcium 8.2 mg/dL (8.5-10.1)
[2017-11-13 04:00] LABS: BUN/Creatinine Ratio 10.3
[2017-11-13 04:02] LABS: Bilirubin, Total 0.5 mg/dL (0.2-1.0); Total Protein 6.2 g/dL (6.4-8.2)
[2017-11-13] MEDS: metroNIDAZOLE 500MG/100ML 100 ML IV SCH ×3 (06:00→23:00)
[2017-11-13] MEDS: FUROSEMIDE 40 MG/4 ML VIAL IV SCH ×2 (06:00→17:53)
[2017-11-13] MEDS: AMIODARONE HCL 200 MG TAB PO SCH ×3 (06:00→23:00)
[2017-11-13] MEDS: ALBUTEROL SULF 2.5 MG/0.5ML(0.5%) NEB SOLN NEB SCH ×4 (06:38→18:56)
[2017-11-13] MEDS: LEVOTHYROXINE SODIUM 100 MCG/5 ML INJ IV SCH (06:50)
[2017-11-13] MEDS: DOPamine 1600MCG/ML D5W 250 ML IV SCH ×2 (07:40→20:06)
[2017-11-13] MEDS: PROPOFOL 100 ML IV SCH ×2 (09:20→15:13)
[2017-11-13] MEDS: PANTOPRAZOLE 40 MG/10 ML VIAL IV SCH (10:18)
[2017-11-13] MEDS: HYDROCORTISONE SOD SUCC 100 MG/2ML INJ VIAL IV SCH ×2 (10:18→23:00)
[2017-11-13] MEDS: METOPROLOL TARTRATE 50 MG TAB PO SCH ×2 (10:20→22:00)
[2017-11-13] MEDS: ENOXAPARIN SOD 80 MG/0.8ML SYRINGE SC SCH (10:20)
[2017-11-13] MEDS: DOXYCYCLINE 100MG/250ML 250 ML IV SCH ×2 (12:00)
[2017-11-13] MEDS: MIDAZOLAM DRIP 50 mg/50mL 50 ML IV SCH (17:52)
[2017-11-13] MEDS: NOREPINEPHRINE 8 MG/250ML KIT 250 ML IV SCH (19:00)
[2017-11-14] VITALS (106 sets, daily range): BP systolic 84–191; BP diastolic 34–114
[2017-11-14] MEDS: DOXYCYCLINE 100MG/250ML 250 ML IV SCH
[2017-11-14] MEDS: IPRATROPIUM BROM 0.5 MG/2.5ML INH SOL NEB SCH ×4 (00:27→18:20)
[2017-11-14] MEDS: ALBUTEROL SULF 2.5 MG/0.5ML(0.5%) NEB SOLN NEB SCH ×4 (00:27→18:20)
[2017-11-14 04:00] LABS: Basophils # (auto) 0 uL; Basophils % (auto) 0.3 % (0.0-2.0); Eosinophils # (auto) 0 uL; Eosinophils % (auto) 0.1 % (0.0-7.0); Hematocrit 35.1 % (36.0-46.0); Hemoglobin 11.5 g/dL (12.2-16.2); Lymphocytes # (auto) 0.8 uL; Lymphocytes % (auto) 7.9 % (10.0-50.0); Mean Corpuscular Hgb Conc. 32.6 g/dL (32.0-36.0); Mean Corpuscular Volume 82.8 fL (80.0-100.0); Monocytes # (auto) 0.5 uL; Neutrophils # (auto) 9.2 uL; Neutrophils % (auto) 86.7 % (37.0-80.0); Platelet Count (auto) 258 10^3/uL (140-450); Red Blood Cells 4.24 10^6/uL (4.0-5.20); White Blood Cell 10.6 10^3/uL (4.4-10.8)
[2017-11-14 04:31] LABS: Albumin 2.7 g/dL (3.4-5.0); BUN/Creatinine Ratio 14.4; Bilirubin, Total 0.3 mg/dL (0.2-1.0); Potassium 3.8 mmol/L (3.5-5.1); Total Protein 6.2 g/dL (6.4-8.2)
[2017-11-14] MEDS: metroNIDAZOLE 500MG/100ML 100 ML IV SCH (06:00)
[2017-11-14] MEDS: FUROSEMIDE 40 MG/4 ML VIAL IV SCH ×2 (06:00→17:50)
[2017-11-14] MEDS: AMIODARONE HCL 200 MG TAB PO SCH ×3 (06:00→21:58)
[2017-11-14] MEDS: LEVOTHYROXINE SODIUM 100 MCG/5 ML INJ IV SCH (07:00)
[2017-11-14] MEDS: HYDROCORTISONE SOD SUCC 100 MG/2ML INJ VIAL IV SCH ×2 (09:28→21:54)
[2017-11-14] MEDS: PANTOPRAZOLE 40 MG/10 ML VIAL IV SCH (09:28)
[2017-11-14] MEDS: ENOXAPARIN SOD 80 MG/0.8ML SYRINGE SC SCH (09:28)
[2017-11-14] MEDS: METOPROLOL TARTRATE 50 MG TAB PO SCH ×2 (09:29→22:39)
[2017-11-14] MEDS: PROPOFOL 100 ML IV SCH ×3 (16:20→20:04)
[2017-11-14] MEDS: AMPICILLIN SOD 2GM INJ 2 GM in SODIUM CHL 0.9% 100 ML IV SCH (18:45)
[2017-11-14] MEDS: NOREPINEPHRINE 8 MG/250ML KIT 250 ML IV SCH (19:00)
[2017-11-14] MEDS: DOPamine 1600MCG/ML D5W 250 ML IV SCH (21:32)
[2017-11-15] VITALS (97 sets, daily range): BP systolic 80–199; BP diastolic 40–115
[2017-11-15] MEDS: AMPICILLIN SOD 2GM INJ 2 GM in SODIUM CHL 0.9% 100 ML IV SCH ×4 (00:19→18:14)
[2017-11-15] MEDS: ALBUTEROL SULF 2.5 MG/0.5ML(0.5%) NEB SOLN NEB SCH ×4 (00:22→19:18)
[2017-11-15] MEDS: IPRATROPIUM BROM 0.5 MG/2.5ML INH SOL NEB SCH ×4 (00:22→19:18)
[2017-11-15] MEDS: PROPOFOL 100 ML IV SCH (01:09)
[2017-11-15] MEDS: DEXMEDETOMIDINE HCL 400 MCG in D5W 5% 96 ML IV SCH ×2 (03:04→19:30)
[2017-11-15 03:52] LABS: Basophils # (auto) 0 uL; Basophils % (auto) 0.2 % (0.0-2.0); Eosinophils # (auto) 0 uL; Eosinophils % (auto) 0.1 % (0.0-7.0)
[2017-11-15 03:54] LABS: Hematocrit 34.7 % (36.0-46.0); Hemoglobin 11.2 g/dL (12.2-16.2); Lymphocytes # (auto) 1.1 uL; Lymphocytes % (auto) 8.5 % (10.0-50.0); Mean Corpuscular Hemoglobin 26.3 pg (28.0-32.0); Mean Corpuscular Hgb Conc. 32.2 g/dL (32.0-36.0); Mean Corpuscular Volume 81.6 fL (80.0-100.0); Monocytes # (auto) 0.6 uL; Monocytes % (auto) 4.7 % (0.0-12.0); Neutrophils # (auto) 10.9 uL; Neutrophils % (auto) 86.5 % (37.0-80.0); Platelet Count (auto) 271 10^3/uL (140-450); Red Blood Cells 4.25 10^6/uL (4.0-5.20); Red Cell Distribution Width 16.3 % (11.8-14.3); White Blood Cell 12.5 10^3/uL (4.4-10.8)
[2017-11-15 04:15] LABS: BUN/Creatinine Ratio 20.8; Calcium 8.2 mg/dL (8.5-10.1); Potassium 3.4 mmol/L (3.5-5.1)
[2017-11-15] MEDS: FUROSEMIDE 40 MG/4 ML VIAL IV SCH ×2 (05:54→17:39)
[2017-11-15] MEDS: AMIODARONE HCL 200 MG TAB PO SCH ×2 (06:00→21:46)
[2017-11-15] MEDS: LEVOTHYROXINE SODIUM 100 MCG/5 ML INJ IV SCH (07:39)
[2017-11-15] MEDS ORDERED: ATROPINE SULF 0.5 MG/5ML SYR ONE (08:14)
[2017-11-15] MEDS: DOPamine 1600MCG/ML D5W 250 ML IV SCH (09:00)
[2017-11-15] MEDS: PANTOPRAZOLE 40 MG/10 ML VIAL IV SCH (13:03)
[2017-11-15] MEDS: HYDROCORTISONE SOD SUCC 100 MG/2ML INJ VIAL IV SCH ×2 (13:03→23:11)
[2017-11-15] MEDS: ENOXAPARIN SOD 80 MG/0.8ML SYRINGE SC SCH (13:04)
[2017-11-15] MEDS ORDERED: POTASSIUM CHL 20MEQ/100ML 100 ML IV ONE (14:45)
[2017-11-15] MEDS: ACETAMINOPHEN 650 mg PER 20 mL UD GT PRN (17:40)
[2017-11-15] MEDS: NOREPINEPHRINE 8 MG/250ML KIT 250 ML IV SCH (19:00)
[2017-11-15] MEDS: cloNIDine HCL 0.1 MG TAB PO PRN (20:19)
[2017-11-16] VITALS (30 sets, daily range): BP systolic 93–163; BP diastolic 57–91
[2017-11-16] MEDS: ALBUTEROL SULF 2.5 MG/0.5ML(0.5%) NEB SOLN NEB SCH ×4 (00:17→20:04)
[2017-11-16] MEDS: IPRATROPIUM BROM 0.5 MG/2.5ML INH SOL NEB SCH ×4 (00:17→20:04)
[2017-11-16] MEDS: AMPICILLIN SOD 2GM INJ 2 GM in SODIUM CHL 0.9% 100 ML IV SCH ×5 (00:29→17:25)
[2017-11-16] MEDS: ACETAMINOPHEN 650 mg PER 20 mL UD GT PRN (02:37)
[2017-11-16 05:13] LABS: Basophils # (auto) 0.1 uL; Eosinophils # (auto) 0 uL; Lymphocytes # (auto) 0.9 uL; Monocytes # (auto) 0.4 uL; Neutrophils % (auto) 87.3 % (37.0-80.0)
[2017-11-16 05:16] LABS: Basophils % (auto) 0.9 % (0.0-2.0); Hematocrit 35.6 % (36.0-46.0); Hemoglobin 11.8 g/dL (12.2-16.2); Lymphocytes % (auto) 7.9 % (10.0-50.0); Mean Corpuscular Hemoglobin 26.9 pg (28.0-32.0); Mean Corpuscular Hgb Conc. 33.2 g/dL (32.0-36.0); Mean Corpuscular Volume 81.1 fL (80.0-100.0); Monocytes % (auto) 3.9 % (0.0-12.0); Neutrophils # (auto) 9.7 uL; Platelet Count (auto) 242 10^3/uL (140-450); Red Blood Cells 4.39 10^6/uL (4.0-5.20); Red Cell Distribution Width 16.1 % (11.8-14.3); White Blood Cell 11.1 10^3/uL (4.4-10.8)
[2017-11-16 05:34] LABS: Albumin 2.9 g/dL (3.4-5.0); BUN/Creatinine Ratio 19.2; Bilirubin, Total 0.3 mg/dL (0.2-1.0); Calcium 8.2 mg/dL (8.5-10.1); Total Protein 6.5 g/dL (6.4-8.2)
[2017-11-16] MEDS: FUROSEMIDE 40 MG/4 ML VIAL IV SCH ×2 (05:57→17:26)
[2017-11-16] MEDS: LEVOTHYROXINE SODIUM 100 MCG/5 ML INJ IV SCH (06:02)
[2017-11-16] MEDS ORDERED: POTASSIUM CHL 20 Meq TABLET PO ONE (08:45)
[2017-11-16] MEDS: HYDROCORTISONE SOD SUCC 100 MG/2ML INJ VIAL IV SCH ×2 (09:29→21:15)
[2017-11-16] MEDS: PANTOPRAZOLE 40 MG/10 ML VIAL IV SCH (09:29)
[2017-11-16] MEDS: AMIODARONE HCL 200 MG TAB PO SCH ×2 (09:30→21:16)
[2017-11-16] MEDS: ENOXAPARIN SOD 80 MG/0.8ML SYRINGE SC SCH (09:31)
[2017-11-16] MEDS: METOPROLOL SUCCINATE XL 50 MG TAB PO SCH (09:31)
[2017-11-17] MEDS: AMPICILLIN SOD 2GM INJ 2 GM in SODIUM CHL 0.9% 100 ML IV SCH ×4 (00:20→18:05)
[2017-11-17 01:00] VITALS: BP 134/110
[2017-11-17] MEDS: ACETAMINOPHEN 650 mg PER 20 mL UD GT PRN (02:07)
[2017-11-17] MEDS: FUROSEMIDE 40 MG/4 ML VIAL IV SCH ×2 (05:29→18:14)
[2017-11-17 05:59] VITALS: BP 131/94
[2017-11-17 06:14] LABS: Basophils # (auto) 0 uL; Eosinophils # (auto) 0 uL; Eosinophils % (auto) 0.2 % (0.0-7.0); Monocytes # (auto) 0.7 uL; Red Blood Cells 4.54 10^6/uL (4.0-5.20); White Blood Cell 11.9 10^3/uL (4.4-10.8)
[2017-11-17 06:16] LABS: Basophils % (auto) 0.2 % (0.0-2.0); Hematocrit 36.9 % (36.0-46.0); Lymphocytes # (auto) 1.4 uL; Lymphocytes % (auto) 11.9 % (10.0-50.0); Mean Corpuscular Hemoglobin 26.5 pg (28.0-32.0); Mean Corpuscular Hgb Conc. 32.6 g/dL (32.0-36.0); Mean Corpuscular Volume 81.3 fL (80.0-100.0); Monocytes % (auto) 5.6 % (0.0-12.0); Neutrophils # (auto) 9.8 uL; Neutrophils % (auto) 82.1 % (37.0-80.0); Platelet Count (auto) 289 10^3/uL (140-450); Red Cell Distribution Width 16.2 % (11.8-14.3)
[2017-11-17 06:31] LABS: Calcium 8.6 mg/dL (8.5-10.1); Potassium 3.4 mmol/L (3.5-5.1)
[2017-11-17 06:33] LABS: BUN/Creatinine Ratio 19.1
[2017-11-17 06:46] LABS: Bilirubin, Total 0.4 mg/dL (0.2-1.0); Total Protein 6.9 g/dL (6.4-8.2)
[2017-11-17] MEDS: ALBUTEROL SULF 2.5 MG/0.5ML(0.5%) NEB SOLN NEB SCH ×4 (06:56→18:31)
[2017-11-17] MEDS: IPRATROPIUM BROM 0.5 MG/2.5ML INH SOL NEB SCH ×4 (06:56→18:31)
[2017-11-17] MEDS: LEVOTHYROXINE SODIUM 100 MCG/5 ML INJ IV SCH (07:38)
[2017-11-17 09:00] VITALS: BP 157/97
[2017-11-17] MEDS: HYDROCORTISONE SOD SUCC 100 MG/2ML INJ VIAL IV SCH ×2 (10:00→22:13)
[2017-11-17] MEDS: ACETYLCYSTEINE ORAL for CIN 20%(200MG/ML) 4ML PO SCH ×2 (10:00→22:09)
[2017-11-17] MEDS: PANTOPRAZOLE 40 MG/10 ML VIAL IV SCH (10:00)
[2017-11-17] MEDS: AMIODARONE HCL 200 MG TAB PO SCH ×2 (10:25→22:10)
[2017-11-17] MEDS: METOPROLOL SUCCINATE XL 50 MG TAB PO SCH (10:26)
[2017-11-17] MEDS: ENOXAPARIN SOD 80 MG/0.8ML SYRINGE SC SCH (10:28)
[2017-11-17 13:00] VITALS: BP 144/94
[2017-11-17 17:53] VITALS: BP 136/80
[2017-11-17 22:00] VITALS: BP 107/59
[2017-11-18] MEDS: ALBUTEROL SULF 2.5 MG/0.5ML(0.5%) NEB SOLN NEB SCH ×4 (00:20→17:58)
[2017-11-18] MEDS: IPRATROPIUM BROM 0.5 MG/2.5ML INH SOL NEB SCH ×4 (00:20→17:58)
[2017-11-18] MEDS: AMPICILLIN SOD 2GM INJ 2 GM in SODIUM CHL 0.9% 100 ML IV SCH ×3 (01:23→12:00)
[2017-11-18] MEDS: cloNIDine HCL 0.1 MG TAB PO PRN (04:33)
[2017-11-18 05:00] VITALS: BP 173/107
[2017-11-18 05:46] VITALS: BP 116/70
[2017-11-18 05:47] VITALS: BP 116/70
[2017-11-18] MEDS: FUROSEMIDE 40 MG/4 ML VIAL IV SCH (06:09)
[2017-11-18] MEDS: LEVOTHYROXINE SODIUM 100 MCG/5 ML INJ IV SCH (06:09)
[2017-11-18 09:00] VITALS: BP 137/75
[2017-11-18] MEDS: ACETYLCYSTEINE ORAL for CIN 20%(200MG/ML) 4ML PO SCH (10:00)
[2017-11-18] MEDS: HYDROCORTISONE SOD SUCC 100 MG/2ML INJ VIAL IV SCH (10:47)
[2017-11-18] MEDS: PANTOPRAZOLE 40 MG/10 ML VIAL IV SCH (10:47)
[2017-11-18] MEDS: METOPROLOL SUCCINATE XL 50 MG TAB PO SCH (10:48)
[2017-11-18] MEDS: ENOXAPARIN SOD 80 MG/0.8ML SYRINGE SC SCH (10:49)
[2017-11-18] MEDS: AMIODARONE HCL 200 MG TAB PO SCH (10:49)
[2017-11-18 12:34] VITALS: BP 151/84
[2017-11-18 17:00] VITALS: BP 145/80
== END 2017-11-18 18:45 | disposition home or self-care (01) | DRG 130 ==
LOC: EDBD 23:41 → ER 23:43 → OVERFLOW 23:44 → ICU WEST 11-11 16:23 → DOU IN ICU 11-16 01:15 → TELE-EAST 11-17 00:41
PROVIDERS: ADMIT Nurse Practitioner Family; ATTEND Internal Medicine
PROC: 5A1955Z Respiratory Ventilation, Greater than 96 Consecutive Hours (ICD-10-PCS; principal; 2017-11-10)
PROC: 0BH17EZ Insertion of Endotracheal Airway into Trachea, Via Natural or Artificial Opening (ICD-10-PCS; 2017-11-10)
PROC: 5A09357 Assistance with Respiratory Ventilation, Less than 24 Consecutive Hours, Continuous Positive Airway Pressure (ICD-10-PCS; 2017-11-10)
PROC: 5A1935Z Respiratory Ventilation, Less than 24 Consecutive Hours (ICD-10-PCS; 2017-11-10)
PROC: 0BH17EZ Insertion of Endotracheal Airway into Trachea, Via Natural or Artificial Opening (ICD-10-PCS; 2017-11-10)
PROC: 02HV33Z Insertion of Infusion Device into Superior Vena Cava, Percutaneous Approach (ICD-10-PCS; 2017-11-15)
DX: J96.01 Acute respiratory failure with hypoxia (principal); N17.0 Acute kidney failure with tubular necrosis; G92 Toxic encephalopathy; I50.33 Acute on chronic diastolic (congestive) heart failure; J18.9 Pneumonia, unspecified organism; E44.0 Moderate protein-calorie malnutrition; N18.4 Chronic kidney disease, stage 4 (severe); I13.0 Hypertensive heart and chronic kidney disease with heart failure and stage 1 through stage 4 chronic kidney disease, or unspecified chronic kidney disease; E11.22 Type 2 diabetes mellitus with diabetic chronic kidney disease; J44.0 Chronic obstructive pulmonary disease with (acute) lower respiratory infection; E03.9 Hypothyroidism, unspecified; E46 Unspecified protein-calorie malnutrition; F12.90 Cannabis use, unspecified, uncomplicated; F15.10 Other stimulant abuse, uncomplicated; F17.210 Nicotine dependence, cigarettes, uncomplicated; F41.9 Anxiety disorder, unspecified; I25.10 Atherosclerotic heart disease of native coronary artery without angina pectoris; I48.1 Persistent atrial fibrillation; I48.92 Unspecified atrial flutter; R00.0 Tachycardia, unspecified; D72.829 Elevated white blood cell count, unspecified; Z68.26 Body mass index [BMI] 26.0-26.9, adult; I25.2 Old myocardial infarction; Z83.3 Family history of diabetes mellitus; Z91.19 Patient's noncompliance with other medical treatment and regimen; Z95.1 Presence of aortocoronary bypass graft; Z79.899 Other long term (current) drug therapy; Z90.49 Acquired absence of other specified parts of digestive tract
CPT/HCPCS: 31500; 36415; 36600; 71045; 80048; 80053; 80307; 81001; 82805; 82962; 83735; 83880; 84443; 84484; 85025; 85379; 85610; 85730; 87040; 87070; 87077; 87081; 87086; 87088; 87186; 87205; 87493; 93005; 94002; 94003; 94640; 94761; 96365; 96367; 96372; 96375; 97163; 99291; A4565; C9113; G0378; J0330; J0461; J2250; J2405; J2704; J3480; J3490; J7060

== ENCOUNTER 2018-02-07 13:20 | Inpatient (IN) | payer MEDICAID ==
[~2018-02-07] VITALS: Ht 170.2 cm; Wt 79.0 kg
[2018-02-07 14:12] LABS: Urine Bacteria NONE SEEN /hpf (None Seen); Urine Blood Negative /uL (Negative); Urine Mucus FEW (None Seen); Urine WBC 1 /hpf (0 - 5)
[2018-02-07 14:29] LABS: Basophils # (auto) 0.1 uL; Eosinophils # (auto) 0.1 uL; Eosinophils % (auto) 0.5 % (0.0-7.0); Hemoglobin 12.1 g/dL (12.2-16.2); Lymphocytes # (auto) 0.9 uL; Lymphocytes % (auto) 7.9 % (10.0-50.0); Monocytes # (auto) 0.9 uL; Monocytes % (auto) 7.8 % (0.0-12.0); Neutrophils # (auto) 9.2 uL
[2018-02-07] MEDS ORDERED: ALBUTEROL SULF 2.5 MG/0.5ML(0.5%) NEB SOLN NEB ONE (14:30)
[2018-02-07] MEDS ORDERED: IPRATROPIUM BROM 0.5 MG/2.5ML INH SOL NEB ONE (14:30)
[2018-02-07 14:31] LABS: Basophils % (auto) 0.9 % (0.0-2.0); Hematocrit 37.9 % (36.0-46.0); Mean Corpuscular Hemoglobin 26.3 pg (28.0-32.0); Mean Corpuscular Hgb Conc. 31.8 g/dL (32.0-36.0); Mean Corpuscular Volume 82.7 fL (80.0-100.0); Neutrophils % (auto) 82.9 % (37.0-80.0); Nucleated Red Blood Cells % 0.1 %; Platelet Count (auto) 256 10^3/uL (140-450); Red Blood Cells 4.58 10^6/uL (4.0-5.20); Red Cell Distribution Width 18.9 % (11.8-14.3); White Blood Cell 11.1 10^3/uL (4.4-10.8)
[2018-02-07 14:46] LABS: Albumin 2.8 g/dL (3.4-5.0); BUN/Creatinine Ratio 21.2; Calcium 7.7 mg/dL (8.5-10.1); Potassium 4.5 mmol/L (3.5-5.1)
[2018-02-07 14:51] LABS: INR 1.32 (0.9-1.15); Partial Thromboplastin Time 33.9 sec (23.78-33.04); Prothrombin Time 13.9 sec (9.27-12.13)
[2018-02-07 15:03] LABS: Bilirubin, Total 0.8 mg/dL (0.2-1.0); Total Protein 6.9 g/dL (6.4-8.2)
[2018-02-07] MEDS ORDERED: ENOXAPARIN SOD 80 MG/0.8ML SYRINGE SC ONE (15:15)
[2018-02-07] MEDS ORDERED: FUROSEMIDE 40 MG/4 ML VIAL IV ONE (15:15)
[2018-02-07] MEDS ORDERED: TEMAZEPAM 15 MG CAP PO PRN (16:15)
[2018-02-07] MEDS ORDERED: ACETAMINOPHEN 500 MG TAB PO PRN (16:15)
[2018-02-07] MEDS ORDERED: LORazepam 0.5 MG TAB PO PRN (16:15)
[2018-02-07] MEDS ORDERED: HYDROcodone-ACET 5/325MG TAB PO PRN (16:15)
[2018-02-07] MEDS ORDERED: MORPHINE SULF INJ 2 MG/ML SYRINGE 1ML IV PRN ×2 (16:15)
[2018-02-07] MEDS ORDERED: LACTULOSE 20Gm/30ML SOLN PO PRN (16:15)
[2018-02-07] MEDS ORDERED: PROMETHAZINE HCL 25 MG/ML 1ML IV PRN (16:15)
[2018-02-07] MEDS ORDERED: ALBUTEROL SULF 2.5 MG/0.5ML(0.5%) NEB SOLN NEB PRN (16:15)
[2018-02-07] MEDS ORDERED: NITROGLYCERIN 0.4 MG SL TAB SL PRN (16:15)
[2018-02-07 16:28] VITALS: BP 152/61
[2018-02-07] MEDS ORDERED: ASPirin 81 mg TAB PO ONE (16:30)
[2018-02-07] MEDS: PANTOPRAZOLE 40 MG TAB PO SCH (16:37)
[2018-02-07] MEDS ORDERED: FURO40TA4 PO (17:53)
[2018-02-07] MEDS ORDERED: POTA10TA51 PO (17:53)
[2018-02-07] MEDS ORDERED: RIVA10TA PO (17:53)
[2018-02-07] MEDS ORDERED: METO25TA5 PO (17:53)
[2018-02-07] MEDS ORDERED: AMIO200T33 PO (17:53)
[2018-02-07] MEDS: ENALAPRIL MALEATE 2.5 MG TAB PO SCH (20:46)
[2018-02-07] MEDS: cloNIDine HCL 0.1 MG TAB PO SCH (20:56)
[2018-02-07] MEDS: ACETYLCYSTEINE ORAL for CIN 20%(200MG/ML) 4ML PO SCH (22:00)
[2018-02-07] MEDS: SODIUM CHLOR 0.9% PF (SALINE LOCK) 10ML VIAL/SYR IV SCH (22:00)
[2018-02-07] MEDS ORDERED: ATORVASTATIN 20 MG TAB PO SCH (22:00)
[2018-02-07] MEDS: AMIODARONE HCL 200 MG TAB PO SCH (22:59)
[2018-02-07] MEDS: CARVEDILOL 3.125 MG TAB PO SCH (22:59)
[2018-02-08] VITALS (23 sets, daily range): BP systolic 98–161; BP diastolic 62–104
[2018-02-08] MEDS ORDERED: ACETYLCYSTEINE 20%(200MG/ML) SOLN 30ML ONE (00:34)
[2018-02-08] MEDS: SODIUM CHLOR 0.9% PF (SALINE LOCK) 10ML VIAL/SYR IV SCH ×3 (06:00→22:02)
[2018-02-08] MEDS: cloNIDine HCL 0.1 MG TAB PO SCH ×3 (06:00→21:57)
[2018-02-08 07:20] LABS: Basophils # (auto) 0 uL; Basophils % (auto) 0.6 % (0.0-2.0); Eosinophils # (auto) 0.1 uL; Hematocrit 38.5 % (36.0-46.0); Hemoglobin 12.5 g/dL (12.2-16.2); Lymphocytes # (auto) 0.9 uL; Lymphocytes % (auto) 11.5 % (10.0-50.0); Mean Corpuscular Hemoglobin 27.1 pg (28.0-32.0); Mean Corpuscular Hgb Conc. 32.5 g/dL (32.0-36.0); Mean Corpuscular Volume 83.2 fL (80.0-100.0); Monocytes # (auto) 0.7 uL; Monocytes % (auto) 9.5 % (0.0-12.0); Neutrophils # (auto) 5.8 uL; Neutrophils % (auto) 77.4 % (37.0-80.0); Nucleated Red Blood Cells % 0.2 %; Platelet Count (auto) 220 10^3/uL (140-450); Red Blood Cells 4.63 10^6/uL (4.0-5.20); Red Cell Distribution Width 18.7 % (11.8-14.3); White Blood Cell 7.5 10^3/uL (4.4-10.8)
[2018-02-08 08:08] LABS: Albumin 2.7 g/dL (3.4-5.0); BUN/Creatinine Ratio 16.3; Bilirubin, Total 1.3 mg/dL (0.2-1.0); Potassium 3.8 mmol/L (3.5-5.1); Total Protein 6.7 g/dL (6.4-8.2)
[2018-02-08] MEDS ORDERED: FUROSEMIDE 40 MG/4 ML VIAL IV SCH (10:00)
[2018-02-08] MEDS ORDERED: ENOXAPARIN SOD 40 MG/0.4 ML SYRINGE SC SCH (10:00)
[2018-02-08] MEDS ORDERED: ASPirin 81 mg TAB PO SCH (10:00)
[2018-02-08] MEDS ORDERED: POTASSIUM CHL 20 Meq TABLET PO SCH (10:00)
[2018-02-08] MEDS: AMIODARONE HCL 200 MG TAB PO SCH ×2 (10:15→21:56)
[2018-02-08] MEDS: POTASSIUM CHL 10 Meq TABLET PO SCH (10:16)
[2018-02-08] MEDS: FUROSEMIDE 40 MG TAB PO SCH (10:16)
[2018-02-08] MEDS: NITROGLYCERIN 0.2MG/HR TOPICAL PATCH TD SCH (10:16)
[2018-02-08] MEDS: PANTOPRAZOLE 40 MG TAB PO SCH (10:16)
[2018-02-08] MEDS: CARVEDILOL 3.125 MG TAB PO SCH ×2 (10:17→21:56)
[2018-02-08] MEDS ORDERED: METOCLOPRAMIDE HCL 5MG/ml INJ 2ml VIAL IV ONE (12:15)
[2018-02-08] MEDS ORDERED: LIDOCAINE 2%HCL (LOCAL ANESTH.) INJ 10ml MDV ONE (13:24)
[2018-02-08] MEDS ORDERED: IODIXANOL 320MG/ML 100ML BTL IV ONE (13:26)
[2018-02-08] MEDS ORDERED: ANGIOMAX 250 MG VIAL IV ONE (13:50)
[2018-02-08] MEDS ORDERED: SODIUM CHL 0.9% 50 ML ONE (13:50)
[2018-02-08] MEDS ORDERED: fentaNYL CITRATE 100 MCG/2 ML VL ONE (14:01)
[2018-02-08] MEDS ORDERED: MIDAZOLAM HCL 1MG/1ML-2 ML VIAL ONE (14:02)
[2018-02-08] MEDS ORDERED: CLOPIDOGREL 300 MG TAB ONE (14:05)
[2018-02-08] MEDS: ACETYLCYSTEINE ORAL for CIN 20%(200MG/ML) 4ML PO SCH ×2 (15:59→22:02)
[2018-02-08] MEDS ORDERED: RIVAROXABAN 15 MG TAB PO SCH (18:00)
[2018-02-08] MEDS ORDERED: ATORVASTATIN 20 MG TAB PO SCH (22:00)
[2018-02-09 04:59] VITALS: BP 156/83
[2018-02-09] MEDS: SODIUM CHLOR 0.9% PF (SALINE LOCK) 10ML VIAL/SYR IV SCH (06:00)
[2018-02-09] MEDS: cloNIDine HCL 0.1 MG TAB PO SCH (06:40)
[2018-02-09 09:00] VITALS: BP 158/96
[2018-02-09] MEDS: ACETYLCYSTEINE ORAL for CIN 20%(200MG/ML) 4ML PO SCH (09:18)
[2018-02-09] MEDS: POTASSIUM CHL 10 Meq TABLET PO SCH (09:19)
[2018-02-09] MEDS: PANTOPRAZOLE 40 MG TAB PO SCH (09:20)
[2018-02-09] MEDS: AMIODARONE HCL 200 MG TAB PO SCH (09:20)
[2018-02-09] MEDS: ENALAPRIL MALEATE 2.5 MG TAB PO SCH (09:20)
[2018-02-09] MEDS: NITROGLYCERIN 0.2MG/HR TOPICAL PATCH TD SCH (09:21)
[2018-02-09] MEDS: FUROSEMIDE 40 MG TAB PO SCH (09:21)
[2018-02-09] MEDS: CARVEDILOL 3.125 MG TAB PO SCH (09:21)
[2018-02-09] MEDS ORDERED: CLOPIDOGREL BISULFATE 75 MG TAB PO SCH (10:00)
[2018-02-09 10:24] VITALS: BP 158/96
[2018-02-09 10:25] LABS: Basophils # (auto) 0 uL; Basophils % (auto) 0.5 % (0.0-2.0); Eosinophils # (auto) 0 uL; Eosinophils % (auto) 0.7 % (0.0-7.0); Hematocrit 35.9 % (36.0-46.0); Hemoglobin 11.7 g/dL (12.2-16.2); Lymphocytes # (auto) 0.5 uL; Lymphocytes % (auto) 6.7 % (10.0-50.0); Mean Corpuscular Hemoglobin 27.1 pg (28.0-32.0); Mean Corpuscular Hgb Conc. 32.7 g/dL (32.0-36.0); Mean Corpuscular Volume 82.7 fL (80.0-100.0); Monocytes # (auto) 0.7 uL; Monocytes % (auto) 10.1 % (0.0-12.0); Neutrophils # (auto) 5.7 uL; Platelet Count (auto) 238 10^3/uL (140-450); Red Blood Cells 4.34 10^6/uL (4.0-5.20); Red Cell Distribution Width 18.9 % (11.8-14.3)
[2018-02-09 10:47] LABS: BUN/Creatinine Ratio 14.8; Calcium 7.8 mg/dL (8.5-10.1)
[2018-02-19] MEDS ORDERED: CLOP75TA28 PO (12:30)
[2018-02-19] MEDS ORDERED: PANT40TA2 PO (12:30)
[2018-02-19] MEDS ORDERED: RIVA10TA PO (13:10)
== END 2018-02-09 13:00 | disposition home or self-care (01) | DRG 175 ==
LOC: EDBD 13:20 → ER 13:23 → OVERFLOW 13:24 → ICU WEST 23:37 → TELE-CENTR 02-08 16:28
PROVIDERS: ADMIT Internal Medicine; ATTEND Internal Medicine
PROC: 027034Z Dilation of Coronary Artery, One Artery with Drug-eluting Intraluminal Device, Percutaneous Approach (ICD-10-PCS; principal; 2018-02-08)
PROC: 4A023N7 Measurement of Cardiac Sampling and Pressure, Left Heart, Percutaneous Approach (ICD-10-PCS; 2018-02-08)
PROC: B2111ZZ Fluoroscopy of Multiple Coronary Arteries using Low Osmolar Contrast (ICD-10-PCS; 2018-02-08)
PROC: B2151ZZ Fluoroscopy of Left Heart using Low Osmolar Contrast (ICD-10-PCS; 2018-02-08)
DX: I13.0 Hypertensive heart and chronic kidney disease with heart failure and stage 1 through stage 4 chronic kidney disease, or unspecified chronic kidney disease (principal); I21.4 Non-ST elevation (NSTEMI) myocardial infarction; E43 Unspecified severe protein-calorie malnutrition; I50.43 Acute on chronic combined systolic (congestive) and diastolic (congestive) heart failure; F17.210 Nicotine dependence, cigarettes, uncomplicated; I25.10 Atherosclerotic heart disease of native coronary artery without angina pectoris; I48.1 Persistent atrial fibrillation; J44.9 Chronic obstructive pulmonary disease, unspecified; N18.2 Chronic kidney disease, stage 2 (mild); E78.5 Hyperlipidemia, unspecified; Z68.27 Body mass index [BMI] 27.0-27.9, adult; I25.2 Old myocardial infarction; Z79.02 Long term (current) use of antithrombotics/antiplatelets; Z83.3 Family history of diabetes mellitus; Z90.49 Acquired absence of other specified parts of digestive tract
CPT/HCPCS: 36415; 71045; 80048; 80053; 80061; 81001; 82550; 83880; 84443; 84484; 85025; 85379; 85610; 85652; 85730; 86141; 87070; 87077; 87081; 87205; 92928; 93005; 93306; 93458; 94640; 96372; 96374; 99152; A6257; C1874; C1887; J2001; J2250; Q9967

== ENCOUNTER 2018-02-09 20:25 | Inpatient (IN) | payer MEDICAID ==
[~2018-02-09] VITALS: Ht 160 cm; Wt 81.0 kg
[~2018-02-09 20:25] MED LIST changes: +AMIO200T33 PO; +FURO40TA4 PO; +METO25TA5 PO; +POTA10TA51 PO; +RIVA10TA PO
[2018-02-09] MEDS ORDERED: cloNIDine HCL 0.1 MG TAB PO ONE (20:45)
[2018-02-09 21:19] LABS: Basophils # (auto) 0.1 uL; Eosinophils # (auto) 0.1 uL; Eosinophils % (auto) 0.8 % (0.0-7.0); Lymphocytes # (auto) 0.6 uL; Mean Corpuscular Volume 83.3 fL (80.0-100.0); Monocytes # (auto) 0.9 uL
[2018-02-09 21:21] LABS: Basophils % (auto) 0.7 % (0.0-2.0); Hematocrit 37.8 % (36.0-46.0); Hemoglobin 12.4 g/dL (12.2-16.2); Lymphocytes % (auto) 8.1 % (10.0-50.0); Mean Corpuscular Hemoglobin 27.4 pg (28.0-32.0); Mean Corpuscular Hgb Conc. 32.9 g/dL (32.0-36.0); Monocytes % (auto) 11.9 % (0.0-12.0); Neutrophils # (auto) 6.1 uL; Neutrophils % (auto) 78.5 % (37.0-80.0); Nucleated Red Blood Cells % 0.1 %; Platelet Count (auto) 266 10^3/uL (140-450); Red Blood Cells 4.54 10^6/uL (4.0-5.20); Red Cell Distribution Width 18.8 % (11.8-14.3); White Blood Cell 7.8 10^3/uL (4.4-10.8)
[2018-02-09 21:26] LABS: Urine Bacteria FEW /hpf (None Seen); Urine Blood Negative /uL (Negative); Urine Hyaline Cast FEW /lpf (0 - 2); Urine Specific Gravity 1.018 (1.001-1.035); Urine WBC 1 /hpf (0 - 5)
[2018-02-09 21:50] LABS: Albumin 2.9 g/dL (3.4-5.0); BUN/Creatinine Ratio 17.4; Bilirubin, Total 0.8 mg/dL (0.2-1.0); Calcium 7.6 mg/dL (8.5-10.1); Magnesium 2.2 mg/dL (1.6-2.6)
[2018-02-09 22:56] LABS: Alcohol, Urine < 3.0 mg/dL (0-5); Amphetamine Screen, Urine NEGATIVE (NEGATIVE); Barbiturate Scree,Urine NEGATIVE (NEGATIVE); Benzodiazephine Screen, Urine NEGATIVE (NEGATIVE); Cannabinoid Screen, Urine POSITIVE (NEGATIVE); Cocaine Screen, Urine NEGATIVE (NEGATIVE); Opiate Scree,Urine NEGATIVE (NEGATIVE); Phencyclidine Screen, Urine NEGATIVE (NEGATIVE)
[2018-02-09] MEDS ORDERED: ONDANSETRON HCL 4 MG/2 ML VIAL IV ONE (23:15)
[2018-02-09] MEDS ORDERED: MORPHINE SULFATE 4 MG/ML SYR/VIAL IV ONE (23:15)
[2018-02-09 23:33] LABS: Partial Thromboplastin Time 25.2 sec (23.78-33.04); Prothrombin Time 10.7 sec (9.27-12.13)
[2018-02-10] MEDS ORDERED: MORPHINE SULF INJ 2 MG/ML SYRINGE 1ML IV PRN (06:30)
[2018-02-10] MEDS ORDERED: ONDANSETRON HCL 4 MG/2 ML VIAL IV PRN (06:30)
[2018-02-10] MEDS ORDERED: NITROGLYCERIN 0.4 MG SL TAB SL PRN (06:30)
[2018-02-10] MEDS ORDERED: ACETAMINOPHEN 325 MG TAB PO PRN (06:30)
[2018-02-10] MEDS: HYDROcodone-ACET 5/325MG TAB PO PRN ×2 (08:17→21:37)
[2018-02-10] MEDS: FUROSEMIDE 40 MG TAB PO SCH (09:36)
[2018-02-10] MEDS: AMIODARONE HCL 200 MG TAB PO SCH ×2 (09:36→22:24)
[2018-02-10] MEDS: ASPirin 81 mg TAB PO SCH (09:36)
[2018-02-10] MEDS: METOPROLOL TARTRATE 25 MG TAB PO SCH ×2 (09:37→22:23)
[2018-02-10] MEDS: GABAPENTIN 100 MG CAP PO SCH ×2 (09:38→22:23)
[2018-02-10] MEDS: FAMOTIDINE 20 MG TAB PO SCH (09:39)
[2018-02-10] MEDS: CLOPIDOGREL BISULFATE 75 MG TAB PO SCH (09:39)
[2018-02-10 17:00] VITALS: BP 116/66
[2018-02-10] MEDS ORDERED: ALBUTEROL SULF 2.5 MG/0.5ML(0.5%) NEB SOLN NEB PRN (17:45)
[2018-02-10] MEDS: cloNIDine HCL 0.1 MG TAB PO SCH ×2 (18:21→22:26)
[2018-02-10] MEDS: RIVAROXABAN 15 MG TAB PO SCH (18:21)
[2018-02-10] MEDS: ALBUTEROL SULF 2.5 MG/0.5ML(0.5%) NEB SOLN NEB SCH ×2 (18:26→23:18)
[2018-02-10] MEDS: IPRATROPIUM BROM 0.5 MG/2.5ML INH SOL NEB SCH ×2 (18:26→23:18)
[2018-02-10 20:00] VITALS: BP 115/73
[2018-02-10 22:00] VITALS: BP 115/73
[2018-02-10] MEDS: PRAVASTATIN SODIUM 20 MG TAB PO SCH (22:22)
[2018-02-11] VITALS (7 sets, daily range): BP systolic 110–138; BP diastolic 58–154
[2018-02-11 06:19] LABS: Basophils # (auto) 0.1 uL; Basophils % (auto) 0.8 % (0.0-2.0); Eosinophils # (auto) 0 uL; Eosinophils % (auto) 0.7 % (0.0-7.0); Hematocrit 36.7 % (36.0-46.0); Mean Corpuscular Hemoglobin 27.4 pg (28.0-32.0); Mean Corpuscular Hgb Conc. 32.7 g/dL (32.0-36.0); Mean Corpuscular Volume 83.7 fL (80.0-100.0); Monocytes % (auto) 13.7 % (0.0-12.0); Neutrophils # (auto) 5.1 uL; Neutrophils % (auto) 70.8 % (37.0-80.0); Platelet Count (auto) 244 10^3/uL (140-450); Red Blood Cells 4.38 10^6/uL (4.0-5.20); Red Cell Distribution Width 18.9 % (11.8-14.3); White Blood Cell 7.2 10^3/uL (4.4-10.8)
[2018-02-11] MEDS: cloNIDine HCL 0.1 MG TAB PO SCH ×3 (06:20→21:52)
[2018-02-11 06:31] LABS: Albumin 2.6 g/dL (3.4-5.0); BUN/Creatinine Ratio 24.2; Calcium 7.8 mg/dL (8.5-10.1); Potassium 4.6 mmol/L (3.5-5.1)
[2018-02-11 06:34] LABS: Bilirubin, Total 0.8 mg/dL (0.2-1.0); Total Protein 6.4 g/dL (6.4-8.2)
[2018-02-11] MEDS: ALBUTEROL SULF 2.5 MG/0.5ML(0.5%) NEB SOLN NEB SCH ×3 (06:50→18:56)
[2018-02-11] MEDS: IPRATROPIUM BROM 0.5 MG/2.5ML INH SOL NEB SCH ×3 (06:50→18:56)
[2018-02-11] MEDS: FAMOTIDINE 20 MG TAB PO SCH (10:00)
[2018-02-11] MEDS: METOPROLOL TARTRATE 25 MG TAB PO SCH ×2 (10:00→21:53)
[2018-02-11] MEDS: AMIODARONE HCL 200 MG TAB PO SCH ×2 (10:47→21:52)
[2018-02-11] MEDS: FUROSEMIDE 40 MG TAB PO SCH (10:47)
[2018-02-11] MEDS: ASPirin 81 mg TAB PO SCH (10:47)
[2018-02-11] MEDS: GABAPENTIN 100 MG CAP PO SCH ×2 (10:48→21:54)
[2018-02-11] MEDS: CLOPIDOGREL BISULFATE 75 MG TAB PO SCH (10:49)
[2018-02-11] MEDS: RIVAROXABAN 15 MG TAB PO SCH (17:28)
[2018-02-11] MEDS: HYDROcodone-ACET 5/325MG TAB PO PRN (17:28)
[2018-02-11] MEDS: PRAVASTATIN SODIUM 20 MG TAB PO SCH (21:54)
[2018-02-12] MEDS: ALBUTEROL SULF 2.5 MG/0.5ML(0.5%) NEB SOLN NEB SCH ×4 (00:51→19:41)
[2018-02-12] MEDS: IPRATROPIUM BROM 0.5 MG/2.5ML INH SOL NEB SCH ×4 (00:51→19:42)
[2018-02-12 05:00] VITALS: BP 128/77
[2018-02-12] MEDS: cloNIDine HCL 0.1 MG TAB PO SCH ×3 (06:15→22:19)
[2018-02-12 08:00] VITALS: BP 138/74
[2018-02-12 09:04] VITALS: BP 150/98
[2018-02-12] MEDS: CLOPIDOGREL BISULFATE 75 MG TAB PO SCH (09:51)
[2018-02-12] MEDS: AMIODARONE HCL 200 MG TAB PO SCH ×2 (09:51→22:19)
[2018-02-12] MEDS: GABAPENTIN 100 MG CAP PO SCH ×2 (09:51→22:19)
[2018-02-12] MEDS: FAMOTIDINE 20 MG TAB PO SCH (09:51)
[2018-02-12] MEDS: FUROSEMIDE 40 MG TAB PO SCH (09:53)
[2018-02-12] MEDS: ASPirin 81 mg TAB PO SCH (09:53)
[2018-02-12] MEDS: METOPROLOL TARTRATE 25 MG TAB PO SCH ×2 (09:53→22:18)
[2018-02-12 12:55] VITALS: BP 145/73
[2018-02-12] MEDS: HYDROcodone-ACET 5/325MG TAB PO PRN (16:18)
[2018-02-12 17:00] VITALS: BP 130/70
[2018-02-12] MEDS: RIVAROXABAN 15 MG TAB PO SCH (18:43)
[2018-02-12 22:00] VITALS: BP 140/81
[2018-02-12] MEDS: PRAVASTATIN SODIUM 20 MG TAB PO SCH (22:19)
[2018-02-13] VITALS (13 sets, daily range): BP systolic 94–179; BP diastolic 46–85
[2018-02-13] MEDS: IPRATROPIUM BROM 0.5 MG/2.5ML INH SOL NEB SCH ×4 (00:41→19:35)
[2018-02-13] MEDS: ALBUTEROL SULF 2.5 MG/0.5ML(0.5%) NEB SOLN NEB SCH ×4 (00:41→19:35)
[2018-02-13] MEDS: cloNIDine HCL 0.1 MG TAB PO SCH ×3 (06:14→22:39)
[2018-02-13 06:31] LABS: Basophils # (auto) 0 uL; Basophils % (auto) 0.7 % (0.0-2.0); Eosinophils # (auto) 0.1 uL; Eosinophils % (auto) 1.7 % (0.0-7.0); Hematocrit 36.3 % (36.0-46.0); Hemoglobin 12.1 g/dL (12.2-16.2); Lymphocytes # (auto) 1.3 uL; Mean Corpuscular Hemoglobin 27.7 pg (28.0-32.0); Mean Corpuscular Hgb Conc. 33.2 g/dL (32.0-36.0); Mean Corpuscular Volume 83.6 fL (80.0-100.0); Monocytes # (auto) 0.7 uL; Monocytes % (auto) 12.1 % (0.0-12.0); Neutrophils # (auto) 3.4 uL; Neutrophils % (auto) 61.5 % (37.0-80.0); Platelet Count (auto) 240 10^3/uL (140-450); Red Blood Cells 4.34 10^6/uL (4.0-5.20); Red Cell Distribution Width 19.8 % (11.8-14.3); White Blood Cell 5.6 10^3/uL (4.4-10.8)
[2018-02-13 06:42] LABS: BUN/Creatinine Ratio 30.2; Calcium 7.9 mg/dL (8.5-10.1); Potassium 4.3 mmol/L (3.5-5.1)
[2018-02-13] MEDS ORDERED: IOHEXOL 350 MG/ML 100ML IJ ONE (08:08)
[2018-02-13] MEDS: CLOPIDOGREL BISULFATE 75 MG TAB PO SCH (10:00)
[2018-02-13] MEDS: FAMOTIDINE 20 MG TAB PO SCH (10:00)
[2018-02-13] MEDS: FUROSEMIDE 40 MG TAB PO SCH (10:00)
[2018-02-13] MEDS: ASPirin 81 mg TAB PO SCH (10:00)
[2018-02-13] MEDS: AMIODARONE HCL 200 MG TAB PO SCH ×2 (10:00→22:00)
[2018-02-13] MEDS: GABAPENTIN 100 MG CAP PO SCH ×2 (10:00→22:36)
[2018-02-13] MEDS: METOPROLOL TARTRATE 25 MG TAB PO SCH ×2 (10:00→22:37)
[2018-02-13] MEDS ORDERED: ANGIOMAX 250 MG VIAL IV ONE ×2 (10:17→11:35)
[2018-02-13] MEDS ORDERED: MIDAZOLAM HCL 1MG/1ML-2 ML VIAL ONE (10:18)
[2018-02-13] MEDS ORDERED: SODIUM CHL 0.9% 50 ML ONE ×2 (10:18→11:35)
[2018-02-13] MEDS ORDERED: fentaNYL CITRATE 100 MCG/2 ML VL ONE (10:18)
[2018-02-13] MEDS ORDERED: LIDOCAINE 2% (LOCAL ANESTH.) PF 5ml SDV ONE (10:21)
[2018-02-13] MEDS ORDERED: IODIXANOL 320MG/ML 100ML BTL IV ONE (10:21)
[2018-02-13 12:34] LABS: Basophils # (auto) 0.1 uL; Basophils % (auto) 0.9 % (0.0-2.0); Eosinophils # (auto) 0.1 uL; Eosinophils % (auto) 1.4 % (0.0-7.0); Hematocrit 30.4 % (36.0-46.0); Hemoglobin 9.9 g/dL (12.2-16.2); Lymphocytes # (auto) 1.2 uL; Lymphocytes % (auto) 20.1 % (10.0-50.0); Mean Corpuscular Hemoglobin 27.1 pg (28.0-32.0); Mean Corpuscular Hgb Conc. 32.5 g/dL (32.0-36.0); Mean Corpuscular Volume 83.2 fL (80.0-100.0); Monocytes # (auto) 0.6 uL; Neutrophils # (auto) 4.1 uL; Neutrophils % (auto) 67.6 % (37.0-80.0); Nucleated Red Blood Cells % 0.1 %; Platelet Count (auto) 257 10^3/uL (140-450); Red Blood Cells 3.65 10^6/uL (4.0-5.20); White Blood Cell 6.1 10^3/uL (4.4-10.8)
[2018-02-13] MEDS ORDERED: ALTEPLASE (RECOMBINANT) 100 MG in STERILE WATER 100 ML IV ONE (13:00)
[2018-02-13] MEDS ORDERED: ASPirin 81 mg TAB PO ONE (15:30)
[2018-02-13] MEDS ORDERED: CLOPIDOGREL BISULFATE 75 MG TAB PO ONE (15:30)
[2018-02-13] MEDS: SODIUM CHLORIDE 0.9% 1,000 ML IV SCH (15:51)
[2018-02-13 19:03] LABS: Basophils # (auto) 0 uL; Basophils % (auto) 0.4 % (0.0-2.0); Eosinophils # (auto) 0.1 uL; Hematocrit 34.4 % (36.0-46.0); Hemoglobin 11.1 g/dL (12.2-16.2); Lymphocytes % (auto) 20.2 % (10.0-50.0); Mean Corpuscular Hemoglobin 27.5 pg (28.0-32.0); Mean Corpuscular Hgb Conc. 32.2 g/dL (32.0-36.0); Mean Corpuscular Volume 85.3 fL (80.0-100.0); Monocytes # (auto) 0.8 uL; Monocytes % (auto) 8.4 % (0.0-12.0); Neutrophils # (auto) 6.9 uL; Nucleated Red Blood Cells % 0.1 %; Platelet Count (auto) 281 10^3/uL (140-450); Red Blood Cells 4.04 10^6/uL (4.0-5.20); Red Cell Distribution Width 19.2 % (11.8-14.3); White Blood Cell 9.9 10^3/uL (4.4-10.8)
[2018-02-13] MEDS: PRAVASTATIN SODIUM 20 MG TAB PO SCH (22:36)
[2018-02-13] MEDS: RIVAROXABAN 15 MG TAB PO SCH (22:36)
[2018-02-13] MEDS: HYDROcodone-ACET 5/325MG TAB PO PRN (22:38)
[2018-02-14] VITALS (38 sets, daily range): BP systolic 95–170; BP diastolic 42–87
[2018-02-14] MEDS: SODIUM CHLORIDE 0.9% 1,000 ML IV SCH ×3 (01:30→20:00)
[2018-02-14 04:16] LABS: Eosinophils # (auto) 0.1 uL; Hemoglobin 9.1 g/dL (12.2-16.2); Lymphocytes # (auto) 1.9 uL; Mean Corpuscular Hemoglobin 26.9 pg (28.0-32.0); Neutrophils % (auto) 65.6 % (37.0-80.0); White Blood Cell 7.7 10^3/uL (4.4-10.8)
[2018-02-14 04:20] LABS: Basophils # (auto) 0 uL; Basophils % (auto) 0.5 % (0.0-2.0); Eosinophils % (auto) 1.3 % (0.0-7.0); Hematocrit 27.9 % (36.0-46.0); Lymphocytes % (auto) 24.2 % (10.0-50.0); Mean Corpuscular Hgb Conc. 32.4 g/dL (32.0-36.0); Mean Corpuscular Volume 83.1 fL (80.0-100.0); Monocytes # (auto) 0.7 uL; Monocytes % (auto) 8.4 % (0.0-12.0); Neutrophils # (auto) 5.1 uL; Platelet Count (auto) 253 10^3/uL (140-450); Red Blood Cells 3.36 10^6/uL (4.0-5.20)
[2018-02-14 04:24] LABS: INR 1.2 (0.9-1.15); Partial Thromboplastin Time 29.7 sec (23.78-33.04); Prothrombin Time 12.7 sec (9.27-12.13)
[2018-02-14 05:00] LABS: Albumin 2.2 g/dL (3.4-5.0); BUN/Creatinine Ratio 22.4; Bilirubin, Total 0.4 mg/dL (0.2-1.0); Magnesium 2.2 mg/dL (1.6-2.6); Potassium 5.1 mmol/L (3.5-5.1); Total Protein 5.3 g/dL (6.4-8.2)
[2018-02-14] MEDS: cloNIDine HCL 0.1 MG TAB PO SCH ×3 (06:00→22:00)
[2018-02-14] MEDS: IPRATROPIUM BROM 0.5 MG/2.5ML INH SOL NEB SCH ×4 (06:06→18:00)
[2018-02-14] MEDS: ALBUTEROL SULF 2.5 MG/0.5ML(0.5%) NEB SOLN NEB SCH ×4 (06:06→18:00)
[2018-02-14] MEDS: FAMOTIDINE 20 MG TAB PO SCH (09:44)
[2018-02-14] MEDS: GABAPENTIN 100 MG CAP PO SCH ×2 (09:44→22:10)
[2018-02-14] MEDS: CLOPIDOGREL BISULFATE 75 MG TAB PO SCH (09:45)
[2018-02-14] MEDS: FUROSEMIDE 40 MG TAB PO SCH (09:45)
[2018-02-14] MEDS: ASPirin 81 mg TAB PO SCH (09:45)
[2018-02-14] MEDS: METOPROLOL TARTRATE 25 MG TAB PO SCH ×2 (09:46→22:00)
[2018-02-14] MEDS: AMIODARONE HCL 200 MG TAB PO SCH ×2 (10:00→22:10)
[2018-02-14 11:06] LABS: Hematocrit 30.4 % (36.0-46.0); Hemoglobin 9.8 g/dL (12.2-16.2)
[2018-02-14] MEDS ORDERED: ALTEPLASE (RECOMBINANT) 100 MG in STERILE WATER 100 ML IV ONE (11:30)
[2018-02-14] MEDS ORDERED: ALTEPLASE 2MG CATHFLO 10 MG in SODIUM CHLORIDE 0.9% 1,000 ML IV ONE (15:00)
[2018-02-14] MEDS ORDERED: HEPARIN SODIUM (PORCINE) 5000 UNITS/ML 1ML VIAL ONE (16:13)
[2018-02-14] MEDS ORDERED: LIDOCAINE 2% (LOCAL ANESTH.) PF 5ml SDV ONE ×2 (16:33→16:41)
[2018-02-14] MEDS ORDERED: IODIXANOL 320MG/ML 100ML BTL IV ONE ×2 (16:33→17:59)
[2018-02-14] MEDS ORDERED: ANGIOMAX 250 MG VIAL IV ONE ×2 (16:41→17:54)
[2018-02-14] MEDS ORDERED: SODIUM CHL 0.9% 50 ML ONE ×2 (16:41→17:54)
[2018-02-14] MEDS ORDERED: MIDAZOLAM HCL 1MG/1ML-2 ML VIAL ONE (17:20)
[2018-02-14] MEDS ORDERED: fentaNYL CITRATE 100 MCG/2 ML VL ONE (17:22)
[2018-02-14] MEDS ORDERED: VERAPAMIL 2.5MG/ML INJ 2ML VIAL IV ONE (17:33)
[2018-02-14] MEDS ORDERED: ADENOSINE 6 MG/2 ML INJ IV ONE (17:33)
[2018-02-14] MEDS ORDERED: CATHFLO IV SCH (18:30)
[2018-02-14] MEDS ORDERED: ALTEPLASE IV SCH (18:30)
[2018-02-14] MEDS ORDERED: SODIUM CHLORIDE 0.9% IV SCH (18:30)
[2018-02-14] MEDS: HYDROcodone-ACET 5/325MG TAB PO PRN (20:23)
[2018-02-14] MEDS: PRAVASTATIN SODIUM 20 MG TAB PO SCH (22:10)
[2018-02-15] VITALS (66 sets, daily range): BP systolic 94–178; BP diastolic 40–108
[2018-02-15] MEDS: IPRATROPIUM BROM 0.5 MG/2.5ML INH SOL NEB SCH ×5 (00:27→18:09)
[2018-02-15] MEDS: ALBUTEROL SULF 2.5 MG/0.5ML(0.5%) NEB SOLN NEB SCH ×5 (00:28→18:09)
[2018-02-15 03:52] LABS: Eosinophils # (auto) 0.1 uL; Eosinophils % (auto) 1.3 % (0.0-7.0); Hemoglobin 9.1 g/dL (12.2-16.2); Monocytes # (auto) 0.6 uL; Neutrophils # (auto) 5.1 uL
[2018-02-15 03:54] LABS: Basophils # (auto) 0.1 uL; Basophils % (auto) 0.7 % (0.0-2.0); Hematocrit 27.4 % (36.0-46.0); Lymphocytes # (auto) 2.1 uL; Lymphocytes % (auto) 25.7 % (10.0-50.0); Mean Corpuscular Hemoglobin 27.3 pg (28.0-32.0); Mean Corpuscular Hgb Conc. 33.1 g/dL (32.0-36.0); Mean Corpuscular Volume 82.3 fL (80.0-100.0); Neutrophils % (auto) 64.3 % (37.0-80.0); Platelet Count (auto) 266 10^3/uL (140-450); Red Blood Cells 3.33 10^6/uL (4.0-5.20); Red Cell Distribution Width 18.9 % (11.8-14.3)
[2018-02-15 04:09] LABS: BUN/Creatinine Ratio 17.5; Calcium 7.6 mg/dL (8.5-10.1); Potassium 4.3 mmol/L (3.5-5.1)
[2018-02-15] MEDS: HYDROcodone-ACET 5/325MG TAB PO PRN ×2 (05:20→17:04)
[2018-02-15] MEDS: cloNIDine HCL 0.1 MG TAB PO SCH ×3 (06:30→22:15)
[2018-02-15] MEDS: CLOPIDOGREL BISULFATE 75 MG TAB PO SCH (09:34)
[2018-02-15] MEDS ORDERED: ASPirin 81 mg TAB PO SCH (10:00)
[2018-02-15] MEDS: FUROSEMIDE 40 MG TAB PO SCH (10:00)
[2018-02-15] MEDS: METOPROLOL TARTRATE 25 MG TAB PO SCH ×2 (10:00→22:30)
[2018-02-15] MEDS: AMIODARONE HCL 200 MG TAB PO SCH ×2 (10:07→22:25)
[2018-02-15] MEDS: FAMOTIDINE 20 MG TAB PO SCH (10:07)
[2018-02-15] MEDS: GABAPENTIN 100 MG CAP PO SCH ×2 (10:07→22:25)
[2018-02-15] MEDS: SODIUM CHLORIDE 0.9% 1,000 ML IV SCH (10:45)
[2018-02-15 11:16] LABS: Basophils # (auto) 0.1 uL; Basophils % (auto) 0.6 % (0.0-2.0); Eosinophils # (auto) 0.1 uL; Eosinophils % (auto) 0.6 % (0.0-7.0); Hemoglobin 8.5 g/dL (12.2-16.2); Lymphocytes # (auto) 1.5 uL; Monocytes # (auto) 0.7 uL; Monocytes % (auto) 6.8 % (0.0-12.0)
[2018-02-15 11:18] LABS: Hematocrit 25.9 % (36.0-46.0); Lymphocytes % (auto) 15.1 % (10.0-50.0); Mean Corpuscular Hemoglobin 27.2 pg (28.0-32.0); Mean Corpuscular Hgb Conc. 32.8 g/dL (32.0-36.0); Neutrophils # (auto) 7.5 uL; Neutrophils % (auto) 76.9 % (37.0-80.0); Platelet Count (auto) 267 10^3/uL (140-450); Red Blood Cells 3.13 10^6/uL (4.0-5.20); Red Cell Distribution Width 18.5 % (11.8-14.3); White Blood Cell 9.8 10^3/uL (4.4-10.8)
[2018-02-15 11:37] LABS: INR 0.99 (0.9-1.15); Partial Thromboplastin Time 22.4 sec (23.78-33.04); Prothrombin Time 10.6 sec (9.27-12.13)
[2018-02-15] MEDS ORDERED: LIDOCAINE 2% (LOCAL ANESTH.) PF 5ml SDV ONE (14:39)
[2018-02-15] MEDS ORDERED: IODIXANOL 320MG/ML 100ML BTL IV ONE (14:40)
[2018-02-15] MEDS ORDERED: MIDAZOLAM HCL 1MG/1ML-2 ML VIAL ONE ×2 (14:56→16:12)
[2018-02-15] MEDS ORDERED: fentaNYL CITRATE 100 MCG/2 ML VL ONE ×2 (14:56→16:12)
[2018-02-15] MEDS ORDERED: ANGIOMAX 250 MG VIAL IV ONE ×2 (14:56→16:12)
[2018-02-15] MEDS ORDERED: SODIUM CHL 0.9% 50 ML ONE ×2 (14:56→16:12)
[2018-02-15] MEDS ORDERED: VERAPAMIL 2.5MG/ML INJ 2ML VIAL IV ONE (15:38)
[2018-02-15] MEDS: RIVAROXABAN 15 MG TAB PO SCH (18:31)
[2018-02-15] MEDS: PRAVASTATIN SODIUM 20 MG TAB PO SCH (22:25)
[2018-02-16] VITALS (75 sets, daily range): BP systolic 87–172; BP diastolic 36–118
[2018-02-16] MEDS: ALBUTEROL SULF 2.5 MG/0.5ML(0.5%) NEB SOLN NEB SCH ×4 (00:04→18:16)
[2018-02-16] MEDS: IPRATROPIUM BROM 0.5 MG/2.5ML INH SOL NEB SCH ×4 (00:04→18:16)
[2018-02-16 03:50] LABS: Basophils # (auto) 0.1 uL; Eosinophils # (auto) 0.1 uL; Eosinophils % (auto) 1.6 % (0.0-7.0); Monocytes # (auto) 0.9 uL; Neutrophils # (auto) 5.8 uL; Nucleated Red Blood Cells % 0.1 %; White Blood Cell 8.9 10^3/uL (4.4-10.8)
[2018-02-16 03:55] LABS: Basophils % (auto) 0.6 % (0.0-2.0); Hematocrit 22.8 % (36.0-46.0); Hemoglobin 7.4 g/dL (12.2-16.2); Lymphocytes # (auto) 1.9 uL; Lymphocytes % (auto) 21.8 % (10.0-50.0); Mean Corpuscular Hemoglobin 26.8 pg (28.0-32.0); Mean Corpuscular Hgb Conc. 32.2 g/dL (32.0-36.0); Mean Corpuscular Volume 83.3 fL (80.0-100.0); Monocytes % (auto) 10.1 % (0.0-12.0); Neutrophils % (auto) 65.9 % (37.0-80.0); Platelet Count (auto) 256 10^3/uL (140-450); Red Blood Cells 2.74 10^6/uL (4.0-5.20); Red Cell Distribution Width 18.3 % (11.8-14.3)
[2018-02-16 04:04] LABS: BUN/Creatinine Ratio 15.6; Calcium 7.6 mg/dL (8.5-10.1); Potassium 4.5 mmol/L (3.5-5.1)
[2018-02-16] MEDS: cloNIDine HCL 0.1 MG TAB PO SCH ×3 (06:30→22:15)
[2018-02-16] MEDS: SODIUM CHLORIDE 0.9% 1,000 ML IV SCH (06:45)
[2018-02-16] MEDS: FUROSEMIDE 40 MG TAB PO SCH (09:56)
[2018-02-16] MEDS: FAMOTIDINE 20 MG TAB PO SCH (09:56)
[2018-02-16] MEDS: CLOPIDOGREL BISULFATE 75 MG TAB PO SCH (09:57)
[2018-02-16] MEDS: METOPROLOL TARTRATE 25 MG TAB PO SCH ×2 (09:57→22:15)
[2018-02-16] MEDS: AMIODARONE HCL 200 MG TAB PO SCH ×2 (10:03→22:25)
[2018-02-16] MEDS: GABAPENTIN 300 MG CAP PO SCH ×2 (10:04→22:25)
[2018-02-16 11:24] LABS: Hematocrit 25.1 % (36.0-46.0)
[2018-02-16] MEDS: HYDROcodone-ACET 5/325MG TAB PO PRN (14:04)
[2018-02-16] MEDS: RIVAROXABAN 15 MG TAB PO SCH (17:48)
[2018-02-16] MEDS: PRAVASTATIN SODIUM 20 MG TAB PO SCH (22:21)
[2018-02-16] MEDS: TEMAZEPAM 15 MG CAP PO PRN (23:25)
[2018-02-17] VITALS (12 sets, daily range): BP systolic 94–141; BP diastolic 37–68
[2018-02-17] MEDS: SODIUM CHLORIDE 0.9% 1,000 ML IV SCH (02:45)
[2018-02-17] MEDS: cloNIDine HCL 0.1 MG TAB PO SCH ×3 (05:21→21:27)
[2018-02-17 06:01] LABS: Basophils # (auto) 0.1 uL; Eosinophils # (auto) 0.2 uL; Monocytes # (auto) 0.8 uL; Monocytes % (auto) 8.9 % (0.0-12.0); Red Cell Distribution Width 18.3 % (11.8-14.3)
[2018-02-17 06:04] LABS: Basophils % (auto) 0.8 % (0.0-2.0); Eosinophils % (auto) 2.4 % (0.0-7.0); Hematocrit 19.6 % (36.0-46.0); Lymphocytes # (auto) 1.9 uL; Lymphocytes % (auto) 21.5 % (10.0-50.0); Mean Corpuscular Hemoglobin 27.9 pg (28.0-32.0); Mean Corpuscular Hgb Conc. 33.2 g/dL (32.0-36.0); Neutrophils % (auto) 66.4 % (37.0-80.0); Nucleated Red Blood Cells % 0.1 %; Platelet Count (auto) 245 10^3/uL (140-450); Red Blood Cells 2.33 10^6/uL (4.0-5.20)
[2018-02-17 06:17] LABS: Calcium 7.6 mg/dL (8.5-10.1); Potassium 4.3 mmol/L (3.5-5.1)
[2018-02-17 06:20] LABS: Hemoglobin 6.5 g/dL (12.2-16.2)
[2018-02-17] MEDS: ALBUTEROL SULF 2.5 MG/0.5ML(0.5%) NEB SOLN NEB SCH ×4 (06:54→18:58)
[2018-02-17] MEDS: IPRATROPIUM BROM 0.5 MG/2.5ML INH SOL NEB SCH ×4 (06:54→18:59)
[2018-02-17] MEDS: AMIODARONE HCL 200 MG TAB PO SCH ×2 (09:54→21:28)
[2018-02-17] MEDS: FAMOTIDINE 20 MG TAB PO SCH (09:55)
[2018-02-17] MEDS: GABAPENTIN 300 MG CAP PO SCH ×2 (09:55→21:27)
[2018-02-17] MEDS: FUROSEMIDE 40 MG TAB PO SCH (09:55)
[2018-02-17] MEDS: CLOPIDOGREL BISULFATE 75 MG TAB PO SCH (09:55)
[2018-02-17] MEDS: METOPROLOL TARTRATE 25 MG TAB PO SCH ×2 (09:56→21:27)
[2018-02-17] MEDS: RIVAROXABAN 15 MG TAB PO SCH (18:18)
[2018-02-17 19:31] LABS: Hematocrit 24.1 % (36.0-46.0); Hemoglobin 7.9 g/dL (12.2-16.2)
[2018-02-17] MEDS: PRAVASTATIN SODIUM 20 MG TAB PO SCH (21:28)
[2018-02-17] MEDS: HYDROcodone-ACET 5/325MG TAB PO PRN (21:28)
[2018-02-17] MEDS: TEMAZEPAM 15 MG CAP PO PRN (21:37)
[2018-02-18] MEDS: IPRATROPIUM BROM 0.5 MG/2.5ML INH SOL NEB SCH ×4 (01:11→19:56)
[2018-02-18 05:00] VITALS: BP 102/59
[2018-02-18] MEDS: cloNIDine HCL 0.1 MG TAB PO SCH ×3 (06:00→21:55)
[2018-02-18 07:32] LABS: Basophils # (auto) 0.1 uL; Eosinophils # (auto) 0.2 uL; Eosinophils % (auto) 2.6 % (0.0-7.0); Lymphocytes # (auto) 1.9 uL; Monocytes # (auto) 0.7 uL; Neutrophils # (auto) 6.1 uL
[2018-02-18 07:34] LABS: Basophils % (auto) 0.8 % (0.0-2.0); Hematocrit 25.3 % (36.0-46.0); Hemoglobin 8.2 g/dL (12.2-16.2); Lymphocytes % (auto) 21.5 % (10.0-50.0); Mean Corpuscular Hemoglobin 27.9 pg (28.0-32.0); Mean Corpuscular Hgb Conc. 32.5 g/dL (32.0-36.0); Mean Corpuscular Volume 85.7 fL (80.0-100.0); Monocytes % (auto) 7.7 % (0.0-12.0); Neutrophils % (auto) 67.4 % (37.0-80.0); Nucleated Red Blood Cells % 0.1 %; Platelet Count (auto) 267 10^3/uL (140-450); Red Blood Cells 2.95 10^6/uL (4.0-5.20); Red Cell Distribution Width 18.4 % (11.8-14.3)
[2018-02-18 08:23] VITALS: BP 102/54
[2018-02-18] MEDS: GABAPENTIN 300 MG CAP PO SCH ×2 (09:32→21:56)
[2018-02-18] MEDS: FAMOTIDINE 20 MG TAB PO SCH (09:32)
[2018-02-18] MEDS: CLOPIDOGREL BISULFATE 75 MG TAB PO SCH (09:32)
[2018-02-18] MEDS: AMIODARONE HCL 200 MG TAB PO SCH ×2 (09:33→21:56)
[2018-02-18] MEDS: METOPROLOL TARTRATE 25 MG TAB PO SCH ×2 (09:34→21:56)
[2018-02-18] MEDS: FUROSEMIDE 40 MG TAB PO SCH (10:00)
[2018-02-18 11:46] VITALS: BP 108/63
[2018-02-18 16:45] VITALS: BP 115/75
[2018-02-18] MEDS: HYDROcodone-ACET 5/325MG TAB PO PRN (17:22)
[2018-02-18] MEDS: PRAVASTATIN SODIUM 20 MG TAB PO SCH (21:56)
[2018-02-18 22:00] VITALS: BP 108/58
[2018-02-19] MEDS: cloNIDine HCL 0.1 MG TAB PO SCH ×2 (04:57→14:00)
[2018-02-19 05:00] VITALS: BP 109/55
[2018-02-19 06:31] LABS: Hematocrit 25.3 % (36.0-46.0); Hemoglobin 8.5 g/dL (12.2-16.2)
[2018-02-19] MEDS: IPRATROPIUM BROM 0.5 MG/2.5ML INH SOL NEB SCH ×3 (06:35→11:50)
[2018-02-19 09:20] VITALS: BP 134/68
[2018-02-19] MEDS: CLOPIDOGREL BISULFATE 75 MG TAB PO SCH (09:54)
[2018-02-19] MEDS: METOPROLOL TARTRATE 25 MG TAB PO SCH (09:54)
[2018-02-19] MEDS: AMIODARONE HCL 200 MG TAB PO SCH (09:55)
[2018-02-19] MEDS: FAMOTIDINE 20 MG TAB PO SCH (09:55)
[2018-02-19] MEDS: GABAPENTIN 300 MG CAP PO SCH (09:55)
[2018-02-19 11:53] VITALS: BP 124/62
[2018-02-19] MEDS ORDERED: CLOP75TA28 PO (12:30)
[2018-02-19] MEDS ORDERED: TEMAZEPAM 15 MG CAP PO PRN (12:30)
[2018-02-19] MEDS ORDERED: PANT40TA2 PO (12:30)
[2018-02-19] MEDS: FUROSEMIDE 40 MG TAB PO SCH (12:41)
[2018-02-19] MEDS ORDERED: RIVA10TA PO (13:10)
[2018-02-19 13:42] VITALS: BP 124/62
== END 2018-02-19 15:37 | disposition home or self-care (01) | DRG 181 ==
LOC: EDBD 20:25 → ER 20:32 → TELE 20:33 → TELE-WESTW 02-10 13:07 → ICU WEST 02-13 15:27 → WEST WING 02-17 00:45 → TELE-WESTW 02-17 00:49
PROVIDERS: ADMIT Nurse Practitioner; ATTEND Internal Medicine
PROC: 04CL3ZZ Extirpation of Matter from Left Femoral Artery, Percutaneous Approach (ICD-10-PCS; principal; 2018-02-13)
PROC: 04CK3ZZ Extirpation of Matter from Right Femoral Artery, Percutaneous Approach (ICD-10-PCS; 2018-02-13)
PROC: 04CT3ZZ Extirpation of Matter from Right Peroneal Artery, Percutaneous Approach (ICD-10-PCS; 2018-02-13)
PROC: 3E05317 Introduction of Other Thrombolytic into Peripheral Artery, Percutaneous Approach (ICD-10-PCS; 2018-02-13)
PROC: 04CM3ZZ Extirpation of Matter from Right Popliteal Artery, Percutaneous Approach (ICD-10-PCS; 2018-02-13)
PROC: 047K3ZZ Dilation of Right Femoral Artery, Percutaneous Approach (ICD-10-PCS; 2018-02-13)
PROC: 04CR3ZZ Extirpation of Matter from Right Posterior Tibial Artery, Percutaneous Approach (ICD-10-PCS; 2018-02-13)
PROC: B41G1ZZ Fluoroscopy of Left Lower Extremity Arteries using Low Osmolar Contrast (ICD-10-PCS; 2018-02-13)
PROC: B41F1ZZ Fluoroscopy of Right Lower Extremity Arteries using Low Osmolar Contrast (ICD-10-PCS; 2018-02-13)
PROC: B3121ZZ Fluoroscopy of Left Subclavian Artery using Low Osmolar Contrast (ICD-10-PCS; 2018-02-14)
PROC: 3E05317 Introduction of Other Thrombolytic into Peripheral Artery, Percutaneous Approach (ICD-10-PCS; 2018-02-14)
PROC: 03C83ZZ Extirpation of Matter from Left Brachial Artery, Percutaneous Approach (ICD-10-PCS; 2018-02-14)
PROC: 04CP3ZZ Extirpation of Matter from Right Anterior Tibial Artery, Percutaneous Approach (ICD-10-PCS; 2018-02-14)
PROC: 04CR3ZZ Extirpation of Matter from Right Posterior Tibial Artery, Percutaneous Approach (ICD-10-PCS; 2018-02-14)
PROC: 04CT3ZZ Extirpation of Matter from Right Peroneal Artery, Percutaneous Approach (ICD-10-PCS; 2018-02-14)
PROC: 03CC3ZZ Extirpation of Matter from Left Radial Artery, Percutaneous Approach (ICD-10-PCS; 2018-02-15)
PROC: 03C83ZZ Extirpation of Matter from Left Brachial Artery, Percutaneous Approach (ICD-10-PCS; 2018-02-15)
PROC: 30233N1 Transfusion of Nonautologous Red Blood Cells into Peripheral Vein, Percutaneous Approach (ICD-10-PCS; 2018-02-17)
DX: I74.3 Embolism and thrombosis of arteries of the lower extremities (principal); N17.0 Acute kidney failure with tubular necrosis; I50.43 Acute on chronic combined systolic (congestive) and diastolic (congestive) heart failure; K55.1 Chronic vascular disorders of intestine; I25.10 Atherosclerotic heart disease of native coronary artery without angina pectoris; I13.0 Hypertensive heart and chronic kidney disease with heart failure and stage 1 through stage 4 chronic kidney disease, or unspecified chronic kidney disease; I48.91 Unspecified atrial fibrillation; E03.9 Hypothyroidism, unspecified; I25.2 Old myocardial infarction; J44.9 Chronic obstructive pulmonary disease, unspecified; N18.2 Chronic kidney disease, stage 2 (mild); E78.5 Hyperlipidemia, unspecified; D64.9 Anemia, unspecified; F12.90 Cannabis use, unspecified, uncomplicated; F15.90 Other stimulant use, unspecified, uncomplicated; F17.210 Nicotine dependence, cigarettes, uncomplicated; F40.240 Claustrophobia; G89.4 Chronic pain syndrome; I07.1 Rheumatic tricuspid insufficiency; I42.0 Dilated cardiomyopathy; I48.2 Chronic atrial fibrillation; I67.2 Cerebral atherosclerosis; I70.0 Atherosclerosis of aorta; I70.8 Atherosclerosis of other arteries; I74.2 Embolism and thrombosis of arteries of the upper extremities; K57.30 Diverticulosis of large intestine without perforation or abscess without bleeding; R79.1 Abnormal coagulation profile; Z79.01 Long term (current) use of anticoagulants; Z79.82 Long term (current) use of aspirin; Z79.899 Other long term (current) drug therapy; Z83.3 Family history of diabetes mellitus; Z90.49 Acquired absence of other specified parts of digestive tract; Z95.5 Presence of coronary angioplasty implant and graft
CPT/HCPCS: 36415; 36600; 70450; 71045; 72131; 75635; 80048; 80053; 80307; 81001; 82805; 83735; 83880; 84132; 84443; 84484; 85014; 85018; 85025; 85379; 85384; 85610; 85730; 86850; 86900; 86901; 86920; 87081; 93005; 93926; 93970; 94640; 94761; 96374; 96375; 99152; 99153; A6257; J0153; J2001; J2250; J2405; Q9967

== ENCOUNTER 2018-02-23 13:37 | Observation (INO) | payer MEDICAID ==
[~2018-02-23] VITALS: Ht 160 cm; Wt 74.8 kg
[~2018-02-23 13:37] MED LIST changes: -ASP81EC PO; +CLOP75TA28 PO; +PANT40TA2 PO
[2018-02-23 14:18] LABS: Urine Bacteria NONE SEEN /hpf (None Seen); Urine Blood Negative /uL (Negative); Urine Mucus FEW (None Seen); Urine Specific Gravity 1.006 (1.001-1.035); Urine WBC 1 /hpf (0 - 5)
[2018-02-23 14:57] LABS: Basophils # (auto) 0.1 uL; Hemoglobin 9.9 g/dL (12.2-16.2); Monocytes # (auto) 0.6 uL
[2018-02-23 14:58] LABS: Basophils % (auto) 1.1 % (0.0-2.0); Eosinophils # (auto) 0.1 uL; Eosinophils % (auto) 1.4 % (0.0-7.0); Hematocrit 29.7 % (36.0-46.0); Lymphocytes # (auto) 1.6 uL; Lymphocytes % (auto) 15.3 % (10.0-50.0); Mean Corpuscular Hemoglobin 28.6 pg (28.0-32.0); Mean Corpuscular Hgb Conc. 33.4 g/dL (32.0-36.0); Mean Corpuscular Volume 85.7 fL (80.0-100.0); Monocytes % (auto) 6.3 % (0.0-12.0); Neutrophils # (auto) 7.9 uL; Neutrophils % (auto) 75.9 % (37.0-80.0); Nucleated Red Blood Cells % 0.2 %; Platelet Count (auto) 506 10^3/uL (140-450); Red Blood Cells 3.47 10^6/uL (4.0-5.20); Red Cell Distribution Width 18.7 % (11.8-14.3); White Blood Cell 10.4 10^3/uL (4.4-10.8)
[2018-02-23 15:30] LABS: Albumin 3.4 g/dL (3.4-5.0); BUN/Creatinine Ratio 17.3; Bilirubin, Total 0.7 mg/dL (0.2-1.0); Calcium 8.3 mg/dL (8.5-10.1); Magnesium 2.7 mg/dL (1.6-2.6); Potassium 4.5 mmol/L (3.5-5.1); Total Protein 8.2 g/dL (6.4-8.2)
[2018-02-23 21:16] LABS: Alcohol, Urine < 3.0 mg/dL (0-5); Amphetamine Screen, Urine NEGATIVE (NEGATIVE); Barbiturate Scree,Urine NEGATIVE (NEGATIVE); Benzodiazephine Screen, Urine NEGATIVE (NEGATIVE); Cannabinoid Screen, Urine NEGATIVE (NEGATIVE); Cocaine Screen, Urine NEGATIVE (NEGATIVE); Opiate Scree,Urine NEGATIVE (NEGATIVE); Phencyclidine Screen, Urine NEGATIVE (NEGATIVE)
[2018-02-23] MEDS ORDERED: MORPHINE SULF INJ 2 MG/ML SYRINGE 1ML IV ONE (22:15)
[2018-02-23 23:53] VITALS: BP 126/73
== END 2018-02-24 02:58 | disposition home or self-care (01) | DRG 861 ==
LOC: ER 13:41 → OVERFLOW 13:42 → ER 02-24 02:58
PROVIDERS: ADMIT Emergency Medicine; ATTEND Emergency Medicine
DX: G89.18 Other acute postprocedural pain (principal); I13.0 Hypertensive heart and chronic kidney disease with heart failure and stage 1 through stage 4 chronic kidney disease, or unspecified chronic kidney disease; I50.9 Heart failure, unspecified; I97.630 Postprocedural hematoma of a circulatory system organ or structure following a cardiac catheterization; I25.10 Atherosclerotic heart disease of native coronary artery without angina pectoris; I48.91 Unspecified atrial fibrillation; F17.210 Nicotine dependence, cigarettes, uncomplicated; N18.9 Chronic kidney disease, unspecified; J44.9 Chronic obstructive pulmonary disease, unspecified; E78.5 Hyperlipidemia, unspecified; I25.2 Old myocardial infarction; F15.10 Other stimulant abuse, uncomplicated; F12.10 Cannabis abuse, uncomplicated; Z98.61 Coronary angioplasty status
CPT/HCPCS: 36415; 71046; 80053; 80307; 81001; 83735; 84484; 85025; 93005; 93926; 96374; 99285; G0378; J2270

== ENCOUNTER 2020-04-29 17:52 | Inpatient (IN) | payer MEDICAID ==
[~2020-04-29] VITALS: Ht 162.6 cm; Wt 130.0 kg
[2020-04-29 19:03] LABS: Basophils # (auto) 0.1 10 ^3/uL (0-0.2); Basophils % (auto) 0.6 % (0.0-2.0); Eosinophils # (auto) 0 10 ^3/uL (0-0.8); Eosinophils % (auto) 0.1 % (0.0-7.0); Hematocrit 42.3 % (36.0-46.0); Hemoglobin 14.6 g/dL (12.2-16.2); Lymphocytes # (auto) 0.6 10 ^3/uL (0.4-5.4); Lymphocytes % (auto) 3.4 % (10.0-50.0); Mean Corpuscular Hgb Conc. 34.6 g/dL (32.0-36.0); Mean Corpuscular Volume 92.6 fL (80.0-100.0); Monocytes # (auto) 0.7 10 ^3/uL (0-1.3); Monocytes % (auto) 4.2 % (0.0-12.0); Neutrophils # (auto) 15.2 10 ^3/uL (1.6-8.6); Neutrophils % (auto) 91.7 % (37.0-80.0); Nucleated Red Blood Cells % 0.2 %; Platelet Count (auto) 356 10^3/uL (140-450); Red Blood Cells 4.57 10^6/uL (4.0-5.20); Red Cell Distribution Width 15.5 % (11.8-14.3); White Blood Cell 16.6 10^3/uL (4.4-10.8)
[2020-04-29 19:19] LABS: Chloride 76 mmol/L (98-107); Potassium 3.9 mmol/L (3.5-5.1)
[2020-04-29 19:34] LABS: Alanine Aminotransferase 63 U/L (13-56); Albumin 3.7 g/dL (3.4-5.0); Alkaline Phosphatase 201 U/L (45-117); Anion Gap 12 (5-15); Aspartate Aminotransferase 70 U/L (15-37); Blood Urea Nitrogen 11 mg/dL (7-18); Calcium 8.1 mg/dL (8.5-10.1); Carbon Dioxide 20 mmol/L (21-32); GFR African American 51 mL/min; GFR Non-African American 42 mL/min; Glucose 167 mg/dL (74-106); Magnesium 2.1 mg/dL (1.6-2.6)
[2020-04-29 19:46] LABS: Sodium 108 mmol/L (136-145)
[2020-04-29] MEDS ORDERED: ATROPINE SULF 0.5 MG/5ML SYR ONE (20:29)
[2020-04-29] MEDS ORDERED: ATROPINE SULFATE 1 MG/1 ML VIAL ONE (20:30)
[2020-04-29] MEDS ORDERED: ETOMIDATE (2MG/ML) 20ML VIAL IV ONE ×2 (20:37)
[2020-04-29] MEDS ORDERED: SUCCINYLCHOLINE CHLORIDE 20 MG/ML 10ML VIAL IV ONE ×3 (20:37→21:00)
[2020-04-29] MEDS ORDERED: MIDAZOLAM DRIP 50 mg/50mL 50 ML IV ONE (20:37)
[2020-04-29] MEDS ORDERED: DOPamine 1600MCG/ML D5W 250 ML IV ONE ×2 (20:38→21:00)
[2020-04-29] MEDS ORDERED: ATROPINE SULF 1 MG/10ml SYR IV ONE (20:45)
[2020-04-29] MEDS: MIDAZOLAM DRIP 50 mg/50mL 50 ML IV SCH (21:00)
[2020-04-29] MEDS ORDERED: HYDROcodone-ACET 5/325MG TAB PO PRN (21:30)
[2020-04-29] MEDS ORDERED: DOCUSATE SOD 100 MG CAP PO PRN (21:30)
[2020-04-29] MEDS ORDERED: MORPHINE SULF INJ 2 MG/ML SYRINGE 1ML IV PRN (21:30)
[2020-04-29] MEDS ORDERED: ONDANSETRON HCL 4 MG/2 ML VIAL IV PRN (21:30)
[2020-04-29] MEDS ORDERED: MORPHINE SULFATE 4 MG/ML SYR/VIAL IV PRN (21:30)
[2020-04-29] MEDS ORDERED: NITROGLYCERIN 0.4 MG SL TAB SL PRN (21:30)
[2020-04-29 22:00] VITALS: BP 109/32
[2020-04-29] MEDS ORDERED: SODIUM CHL 3% 500 ML IV ONE ×2 (22:00→22:15)
[2020-04-29 23:29] LABS: Urine Bacteria FEW /hpf (None Seen); Urine Blood TRACE /uL (Negative); Urine Hyaline Cast FEW /lpf (0 - 2); Urine Specific Gravity 1.021 (1.001-1.035); Urine WBC 1 /hpf (0 - 5)
[2020-04-29 23:45] LABS: Amphetamine Screen, Urine NEGATIVE (NEGATIVE); Barbiturate Scree,Urine NEGATIVE (NEGATIVE); Benzodiazephine Screen, Urine NEGATIVE (NEGATIVE); Cannabinoid Screen, Urine POSITIVE (NEGATIVE); Cocaine Screen, Urine NEGATIVE (NEGATIVE); Phencyclidine Screen, Urine NEGATIVE (NEGATIVE)
[2020-04-29] MEDS ORDERED: NOREPINEPHRINE 8 MG/250ML KIT 250 ML IV ONE (23:47)
[2020-04-29] MEDS ORDERED: PROPOFOL 100 ML IV ONE (23:47)
[2020-04-29] MEDS: PANTOPRAZOLE 40 MG/10 ML VIAL INJ IV SCH (23:50)
[2020-04-29 23:51] VITALS: BP 109/32
[2020-04-29 23:51] LABS: Opiate Scree,Urine NEGATIVE (NEGATIVE)
[2020-04-30] VITALS (66 sets, daily range): BP systolic 16–176; BP diastolic -27–106
--- NOTE | 2020-04-30 01:40 | NUR ---
Patient arrived to ICU bed 104 via gurney from ER. Patient transferred to ICU bed and connected to .
[2020-04-30] MEDS: MIDAZOLAM DRIP 50 mg/50mL 50 ML IV SCH ×4 (02:00→23:04)
--- NOTE | 2020-04-30 02:00 | NUR ---
MRSA swab collected and specimen sent to lab.
--- NOTE | 2020-04-30 03:00 | NUR ---
FiO2 increase to 100% by RT.
[2020-04-30 03:54] LABS: Basophils # (auto) 0.1 10 ^3/uL (0-0.2); Basophils % (auto) 0.5 % (0.0-2.0); Eosinophils # (auto) 0 10 ^3/uL (0-0.8); Hematocrit 41.9 % (36.0-46.0); Hemoglobin 13.9 g/dL (12.2-16.2); Lymphocytes # (auto) 0.5 10 ^3/uL (0.4-5.4); Lymphocytes % (auto) 2.3 % (10.0-50.0); Mean Corpuscular Hemoglobin 31.7 pg (28.0-32.0); Mean Corpuscular Hgb Conc. 33.1 g/dL (32.0-36.0); Mean Corpuscular Volume 95.8 fL (80.0-100.0); Monocytes # (auto) 1.5 10 ^3/uL (0-1.3); Monocytes % (auto) 6.5 % (0.0-12.0); Neutrophils # (auto) 20.6 10 ^3/uL (1.6-8.6); Neutrophils % (auto) 90.7 % (37.0-80.0); Nucleated Red Blood Cells % 0.4 %; Platelet Count (auto) 270 10^3/uL (140-450); Red Blood Cells 4.38 10^6/uL (4.0-5.20); Red Cell Distribution Width 15.8 % (11.8-14.3); White Blood Cell 22.7 10^3/uL (4.4-10.8)
[2020-04-30 04:15] LABS: Potassium 4.6 mmol/L (3.5-5.1)
[2020-04-30 04:23] LABS: Albumin 2.8 g/dL (3.4-5.0); BUN/Creatinine Ratio 7.9; Calcium 7.3 mg/dL (8.5-10.1); Total Protein 7.1 g/dL (6.4-8.2)
[2020-04-30] MEDS: DOPamine 1600MCG/ML D5W 250 ML IV SCH ×5 (05:17→21:35)
[2020-04-30] MEDS ORDERED: DOPamine 1600MCG/ML D5W 250 ML IV ONE (05:17)
--- NOTE | 2020-04-30 06:00 | NUR ---
Versed drip bag changed to new bag; also, Propofol drip increase to 10 mcg/kg/min due to patient over-riding vent.
[2020-04-30] MEDS: PIPERACILLIN-TAZOB 3.375GM 100 ML IV SCH ×4 (06:05→21:54)
--- NOTE | 2020-04-30 06:05 | NUR ---
JPatient medicated with Zosyn 3.375 Gm IV.
--- NOTE | 2020-04-30 07:00 | NUR ---
Report from Pro JAMES Patient COVID 19 rule out. Patient intubated in ER, on versed 15 mg, Propofol 10 mcg, Vent settings TV 500 PEEP 10 AC 16 FIO2 100%. Patient is hypotensive, and bradycardiac HR 48 BP systolic 90's. On arrival Levo T 4 mcg Dopamine 20 mcg. Patient overbreathing the ventilator RR 25. Rectal temp 100.4, initially patient was hypthermic. 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 Patient on 3% NS at 30 ML due to hyponatremia. Patient has order for PICC line, all peripheral lines at this time. No BM. ETT secretions creamy, scant, oral secretions dark red blood, small.
--- NOTE | 2020-04-30 07:20 | NUR ---
RN bedside Increase Levo to 6 mcg.
--- NOTE | 2020-04-30 07:25 | NUR ---
RN bedside Increased Levophed to 8 mcg.
--- NOTE | 2020-04-30 07:35 | NUR ---
RN bedside Increase Levophed 10 mcg.
--- NOTE | 2020-04-30 07:45 | NUR ---
RN bedside Oral care completed, cooling measures with ice packs and wet towels. Patient is diaphrorectic. Marcelina contacted d/t line necessity, okay for PICC line insertion. Cardiac consult notified. Patient has 30 ml urine output during shift at this time.
--- NOTE | 2020-04-30 07:45 | NUR ---
RN bedside Increase Levophed 12 mcg.
--- NOTE | 2020-04-30 08:05 | NUR ---
Cardiology consult called documentation billing clerk called consult d/t persistent bradycardia.
--- NOTE | 2020-04-30 08:10 | NUR ---
Vent changes ABG RT bedside, increase TV per ABG results.
--- NOTE | 2020-04-30 08:11 | NUR ---
VT INCREASED TO 550 ORDERED. RN AT BEDSIDE AND AWARE.
--- NOTE | 2020-04-30 08:23 | NUR ---
Over the phone consents for invasive lines insertion Daughter Citlali endorsed to Flaquito JAMES on unit and witnessed from Blas posey RN.
[2020-04-30] MEDS: NOREPINEPHRINE 8 MG/250ML KIT 250 ML IV SCH ×3 (09:08→18:12)
--- NOTE | 2020-04-30 09:30 | NUR ---
RN bedside Oral care, repositioned.
--- NOTE | 2020-04-30 10:15 | NUR ---
Dr. Hewitt bedside Orders to increase sedation, titarate Levophed up and Dopamine down and initial Vasopressin if needed and Fentanyl for sedation.
[2020-04-30] MEDS: FUROSEMIDE 40 MG/4 ML VIAL IV SCH (10:23)
[2020-04-30] MEDS: ENOXAPARIN SOD 40 MG/0.4 ML SYRINGE SC SCH (10:24)
[2020-04-30] MEDS: PANTOPRAZOLE 40 MG/10 ML VIAL INJ IV SCH ×2 (10:24→21:54)
[2020-04-30] MEDS: ASPirin 81 mg TAB NG SCH (10:24)
--- NOTE | 2020-04-30 10:30 | NUR ---
RN bedside Titrating dopamine down.
--- NOTE | 2020-04-30 11:20 | NUR ---
RN bedside Oral care, repositioned.
--- NOTE | 2020-04-30 12:30 | NUR ---
RT unable to draw ABG's.
--- NOTE | 2020-04-30 12:40 | NUR ---
RN bedside Oral care completed.
--- NOTE | 2020-04-30 13:05 | NUR ---
RN bedside Patient repositioned. Oral care.
[2020-04-30] MEDS: PROPOFOL 100 ML IV SCH ×4 (13:52→23:36)
--- NOTE | 2020-04-30 14:27 | NUR ---
PT SWITCHED TO HEATED WIRE CIRCUIT.
--- NOTE | 2020-04-30 14:30 | NUR ---
Dr. Maier Turn off 3% NS until labs are able to be drawn.
--- NOTE | 2020-04-30 14:45 | NUR ---
Dr. Duque No new orders, maintain Dopamine.
--- NOTE | 2020-04-30 15:27 | NUR ---
AFTER MULTIPLE FAILED ATTEMPTS TO OBTAIN ABG MD ACHARYA AT BEDSIDE TO PLACE ARTLINE.
--- NOTE | 2020-04-30 15:40 | NUR ---
Dr. Hewitt Unable to place arterial like left femoral groin.
[2020-04-30] MEDS ORDERED: SODIUM CHLORIDE 0.9% 2,000 ML IV ONE ×2 (16:30→20:15)
--- NOTE | 2020-04-30 16:52 | NUR ---
RN spoke with daughter, updated on status. All questions answered.
--- NOTE | 2020-04-30 17:00 | NUR ---
PICC line RN bedside
--- NOTE | 2020-04-30 18:00 | NUR ---
RT unable to get ABG's.
--- NOTE | 2020-04-30 18:00 | NUR ---
PICC ATTEMPTED PICC LINE INSERTION TO BOTH LEFT AND RIGHT UPPER EXTREMITIES. UNABLE TO PASS WIRE UP ON EITHER SIDE. INFORMED PRIMARY RN KRUPA. DR. PEÑA AT BEDSIDE TO ATTEMPT CENTRAL LINE..
--- NOTE | 2020-04-30 18:30 | NUR ---
Dr. Maldonado central line Bedside for left femoral groin insertion and right femoral groin 3x lumen .
[2020-04-30 18:35] LABS: Creatinine, Urine 43 mg/dL (30.0-125.0); Sodium Urine 8 mmol/L (40-220)
--- NOTE | 2020-04-30 18:45 | NUR ---
Lab collection Called lab to let them know there is access now.
--- NOTE | 2020-04-30 19:00 | NUR ---
Labs from arterial line.
--- NOTE | 2020-04-30 19:22 | NUR ---
Report received from ERIKA Jon. Patient intubated with ETT 8.0 at 25 L/L to vent. Vent settings: AC 16 Vt 500 FiO2 85% PEEP 10. IVF: Dopamine drip at 20 mcg/kg/min; Levophed drip at 14 mcg/min; Versed drip at 15 mg/hr; and, Propofol drip at 20 mcg/kg/min. Will continue to monitor VS, focus on HR and BP, RASS -3, and, clinical status.
[2020-04-30 19:35] LABS: Basophils # (auto) 0.1 10 ^3/uL (0-0.2); Basophils % (auto) 0.4 % (0.0-2.0); Eosinophils # (auto) 0 10 ^3/uL (0-0.8); Eosinophils % (auto) 0.1 % (0.0-7.0); Hematocrit 40.2 % (36.0-46.0); Hemoglobin 13.6 g/dL (12.2-16.2); Lymphocytes # (auto) 0.4 10 ^3/uL (0.4-5.4); Mean Corpuscular Hemoglobin 31.6 pg (28.0-32.0); Mean Corpuscular Hgb Conc. 33.9 g/dL (32.0-36.0); Mean Corpuscular Volume 93.1 fL (80.0-100.0); Monocytes # (auto) 0.6 10 ^3/uL (0-1.3); Neutrophils # (auto) 17.8 10 ^3/uL (1.6-8.6); Neutrophils % (auto) 94.5 % (37.0-80.0); Nucleated Red Blood Cells % 0.5 %; Platelet Count (auto) 270 10^3/uL (140-450); Red Blood Cells 4.32 10^6/uL (4.0-5.20); Red Cell Distribution Width 15.7 % (11.8-14.3); White Blood Cell 18.8 10^3/uL (4.4-10.8)
[2020-04-30 19:54] LABS: Calcium 6.7 mg/dL (8.5-10.1); INR 1.14 (0.9-1.15); Magnesium 2.2 mg/dL (1.6-2.6); Partial Thromboplastin Time 34.5 sec (23.0-31.2); Potassium 4.7 mmol/L (3.5-5.1)
[2020-04-30 19:56] LABS: Lactic Acid w/Reflex 3.1 mmol/L (0.4-2.0)
[2020-04-30 20:09] LABS: Phosphorus 2.8 mg/dL (2.5-4.90)
--- NOTE | 2020-04-30 20:21 | NUR ---
IVF NS 2000 ml bolus infusion started. IVF NS will not scan.
--- NOTE | 2020-04-30 20:35 | NUR ---
Received Na+ level from [facility] [address]. Dr. Maier exchanged, DELICIA Hauser, called to vincent ROD for Na+ 117.
--- NOTE | 2020-04-30 21:29 | NUR ---
Report to ERIKA Mast.
--- NOTE | 2020-04-30 21:37 | NUR ---
Dopamine drip bag changed to new bag and resumed infusion rate to 20mcg/kg/min. Medication will not scan.
--- NOTE | 2020-04-30 21:54 | NUR ---
Rtn scheduled medications. See e-MAR.
[2020-04-30] MEDS: SODIUM BICARB 50ML SYR 75 ML in SOD CHL 0.45% 1,000 ML IV SCH (22:54)
--- NOTE | 2020-04-30 22:54 | NUR ---
Na Bicarb 75 meq/75 ml drip 0.45% infusion started at 75 ml/hr.
--- NOTE | 2020-04-30 23:04 | NUR ---
Versd drip bag exchanged to new bag. Medication will not scan.
--- NOTE | 2020-04-30 23:07 | NUR ---
Propofol drip bottle exchanged to new bottle.
[2020-05-01] VITALS (105 sets, daily range): BP systolic 23–156; BP diastolic -10–86
[2020-05-01] MEDS: DOPamine 1600MCG/ML D5W 250 ML IV SCH ×6 (00:35→20:56)
--- NOTE | 2020-05-01 00:35 | NUR ---
Dopamine drip bag exchanged to new bag and resumed at 20 mcg/kg/min. Medication will not scan.
--- NOTE | 2020-05-01 01:05 | NUR ---
FiO2 decrease to 75% by RT.
--- NOTE | 2020-05-01 03:17 | NUR ---
Hot Top Liner Helper on unit. Assistant Store Manager Trainee collected am labs from [facility]. Specimens given to Hot Top Liner Helper and specimens sent to lab.
[2020-05-01] MEDS: MIDAZOLAM DRIP 50 mg/50mL 50 ML IV SCH ×3 (03:43→21:00)
[2020-05-01] MEDS: NOREPINEPHRINE 8 MG/250ML KIT 250 ML IV SCH ×3 (03:43→22:49)
--- NOTE | 2020-05-01 03:43 | NUR ---
Levophed drip bag exchanged to new bag and resumed infusion at 14 mcg/min; Dopamine drip bag exchanged to new bag and resumed infusion at 20 mcg/kg/min; Versed drip bag exchanged to new bag and resumed infusion at 15 mg/hr. Addendum: 05/01/20 at 0531 by David Mcgowan RN RN Medications will not scan.
--- NOTE | 2020-05-01 04:00 | NUR ---
BP 122/59. Levophed drip increase to 19.33 mcg/min to keep SBP >[address] Hewitt.
--- NOTE | 2020-05-01 04:30 | NUR ---
Bedbath and linen change given. OGT connected to LIS due to coffee ground emesis coming from oral pharynx.
[2020-05-01 04:34] LABS: Basophils # (auto) 0 10 ^3/uL (0-0.2); Basophils % (auto) 0.1 % (0.0-2.0); Eosinophils # (auto) 0 10 ^3/uL (0-0.8); Hematocrit 40.5 % (36.0-46.0); Hemoglobin 13.6 g/dL (12.2-16.2); Lymphocytes # (auto) 0.5 10 ^3/uL (0.4-5.4); Lymphocytes % (auto) 2.5 % (10.0-50.0); Mean Corpuscular Hemoglobin 31.5 pg (28.0-32.0); Mean Corpuscular Hgb Conc. 33.5 g/dL (32.0-36.0); Monocytes # (auto) 0.7 10 ^3/uL (0-1.3); Monocytes % (auto) 3.5 % (0.0-12.0); Neutrophils # (auto) 19.6 10 ^3/uL (1.6-8.6); Neutrophils % (auto) 93.9 % (37.0-80.0); Nucleated Red Blood Cells % 0.7 %; Platelet Count (auto) 279 10^3/uL (140-450); Red Blood Cells 4.31 10^6/uL (4.0-5.20); Red Cell Distribution Width 16.1 % (11.8-14.3); White Blood Cell 20.9 10^3/uL (4.4-10.8)
[2020-05-01 04:51] LABS: Potassium 4.4 mmol/L (3.5-5.1)
[2020-05-01 05:00] LABS: BUN/Creatinine Ratio 13.3; Calcium 6.7 mg/dL (8.5-10.1)
[2020-05-01] MEDS: PIPERACILLIN-TAZOB 3.375GM 100 ML IV SCH ×3 (05:29→21:41)
--- NOTE | 2020-05-01 05:30 | NUR ---
Rtn scheduled medication given. See e-MAR.
--- NOTE | 2020-05-01 06:39 | NUR ---
Dopamine drip bag exchanged to new bag and resumed at 20 mcg/kg/min.
[2020-05-01] MEDS: PROPOFOL 100 ML IV SCH ×2 (06:44→10:04)
--- NOTE | 2020-05-01 06:44 | NUR ---
Propofol bottle changed to new bottle and resumed infusion at 20 mcg/kg/min.
--- NOTE | 2020-05-01 08:00 | NUR ---
TEMPERATURE Patient rectal temperature 102.2 cooling measures applied.
--- NOTE | 2020-05-01 09:00 | NUR ---
FAMILY Received phone call from patients panda Godwin, correct password provided and updated on patient condition.
[2020-05-01] MEDS: FUROSEMIDE 40 MG/4 ML VIAL IV SCH (10:00)
[2020-05-01] MEDS: ENOXAPARIN SOD 40 MG/0.4 ML SYRINGE SC SCH (10:01)
[2020-05-01] MEDS: ASPirin 81 mg TAB NG SCH (10:01)
[2020-05-01] MEDS: PANTOPRAZOLE 40 MG/10 ML VIAL INJ IV SCH ×2 (10:01→21:40)
[2020-05-01] MEDS: ACETAMINOPHEN 325 MG TAB PO PRN (10:02)
--- NOTE | 2020-05-01 10:40 | NUR ---
ECHO test lab technician at bedside to perform study.
[2020-05-01] MEDS ORDERED: OPTISON 3ml Vial for INJ IV ONE (10:57)
--- NOTE | 2020-05-01 11:00 | NUR ---
MD Dr. Hewitt at bedside updated on patient condition with new order, this RN to input into system. RT Ibarra will be notified of new orders.
--- NOTE | 2020-05-01 11:30 | NUR ---
MD Dr. Duque at bedside updated on patient condition with new orders, MD to input into system.
--- NOTE | 2020-05-01 11:55 | NUR ---
Respiratory note: VENT CHANGES PER RR FROM 20 TO 16, VT FROM 550 TO 500, FIO2 FROM 70% TO 60%. NO FOLLOW UP ABG NEEDED.
[2020-05-01 12:13] LABS: Calcium 6.7 mg/dL (8.5-10.1); Potassium 4.6 mmol/L (3.5-5.1)
[2020-05-01 12:16] LABS: BUN/Creatinine Ratio 15.2
[2020-05-01] MEDS: CLOPIDOGREL BISULFATE 75 MG TAB PO SCH (13:39)
[2020-05-01] MEDS: SODIUM BICARB 50ML SYR 75 ML in SOD CHL 0.45% 1,000 ML IV SCH (14:06)
--- NOTE | 2020-05-01 14:30 | NUR ---
BED CHANGE Complete bed change done with the assistance of Jenny RN and inspector returned materials. Patient tolerated well.
--- NOTE | 2020-05-01 14:39 | NUR ---
WOUND CARE NOTE: IN TO SEE PATIENT AT THIS TIME FOR SKIN INTEGRITY MONITORING. PATIENT ADMITTED TO [facility] WITH DIAGNOSIS OF ACUTE RESPIRATORY FAILURE. CURRENT MYKE SCORE IS 10. PATIENT IS RESTING ON ICU LOW AIRLOSS BED. SHE IS INTUBATED, SEDATED. PATIENT IS ASSESSED TO BE WOUND FREE AT THIS TIME. ALL BONY PROMINENCES ARE BLANCHABLE. SHE IS NOTED TO HAVE XEROSIS TO BILATERAL PLANTAR FEET, WITH SEVERAL SMALL FISSURE NOTED TO BILATERAL HEELS. PATIENT WOULD BENEFIT FROM BID APPLICATIONS WITH HYDRAGUARD TO BILATERAL FEET/HEELS TO MOISTURIZE AND HYDRATE SKIN. RECOMMEND: FREQUENT TURN SCHEDULE Q 2 HOURS, PRN CONDITION PERMITS, WITH PRESSURE REDISTRIBUTION USING PILLOWS/WEDGES, BID/PRN APPLICATION OF HYDRAGUARD MOISTURE BARRIER CREAM TO SACRUM, COVERING UPPER MEDIAL SACRUM WITH OPTIFOAM GENTLE SACRAL DRESSING, AND BILATERAL FEET; DIETARY CONSULT; SKIN/WOUND CARE PLAN; CONTINUED MONITORING BY WOUND CARE TEAM.
--- NOTE | 2020-05-01 15:00 | NUR ---
MD Gutierrez at bedside updated on patient condition with no new orders at this time. Will continue to monitor patient closely.
--- NOTE | 2020-05-01 19:05 | NUR ---
Report received from ERIKA Nelson. Patient intubated with ETT 8.0 at 25 CM L/L. Vent settings: AC 16 Vt 500 FiO2 60% PEEP 10. IVF: Dopamine drip at 15 mcg/kg/min; Levophed drip at 12 mcg/min; Versed drip at 15 mg/hr; and Propofol drip at 20 mcg/kg/min. Will continue with POC; and, will focus on HR, BP, RASS -3, and clinical status.
--- NOTE | 2020-05-01 20:56 | NUR ---
Dopamine drip bag changed to new bag and resume at 15 mcg/kg/min infusion rate.
--- NOTE | 2020-05-01 21:00 | NUR ---
Versed drip changed to new bag and resumed infusion rate at 15 mg/hr. Addendum: 05/02/20 at 0155 by David Mcgowan RN RN Medication will not scan.
--- NOTE | 2020-05-01 21:41 | NUR ---
Rtn scheduled medications given. See e-MAR.
[2020-05-01 22:01] LABS: BUN/Creatinine Ratio 16.2; Potassium 4.8 mmol/L (3.5-5.1)
--- NOTE | 2020-05-01 22:28 | NUR ---
CRITICAL LAB: CA 6.0 received telephone call from Kylie Downey.
--- NOTE | 2020-05-01 22:34 | NUR ---
Hospitalist paged for orders re: CA 6.0
--- NOTE | 2020-05-01 22:35 | NUR ---
Patient daughter Ilsa called for an update. Ammonia Nitrate Operator shared with US to call functional tester typewriters back in 30 minutes.
--- NOTE | 2020-05-01 22:38 | NUR ---
Hospitalist DIRECTOR OF GIFT PLANNING Madi Barbosa return call. updated with CA 6.0. Hospitalist order Calcium Gluconate 1 Gm IVP x 1 now.
[2020-05-01] MEDS ORDERED: CALCIUM GLUC 4.65meq/50ml D5AE 50 ML IV ONE (22:45)
--- NOTE | 2020-05-01 22:49 | NUR ---
Levophed drip bag changed to new bag and resumed infusion rat at 12 mcg/min. Addendum: 05/02/20 at 0155 by David Mcgowan RN RN Medication will not scan.
--- NOTE | 2020-05-01 22:56 | NUR ---
Calcium Gluconate 1 Gm IVPB given.
[2020-05-02] VITALS (105 sets, daily range): BP systolic 87–144; BP diastolic 36–69
[2020-05-02] MEDS: DOPamine 1600MCG/ML D5W 250 ML IV SCH ×7 (00:27→23:20)
--- NOTE | 2020-05-02 00:28 | NUR ---
Dopamine drip bag changed to new bag and resumed infusion rate at 15 mcg/kg/min.
[2020-05-02] MEDS: PROPOFOL 100 ML IV SCH ×4 (01:13→23:21)
--- NOTE | 2020-05-02 01:13 | NUR ---
Propofol drip bottle changed to new bottle and resumed infusion at 20 mcg/kg/min.
[2020-05-02] MEDS: MIDAZOLAM DRIP 50 mg/50mL 50 ML IV SCH ×6 (01:19→23:19)
--- NOTE | 2020-05-02 01:20 | NUR ---
Versed drip bag changed to new bag and resumed infusion at 15 mg/hr. Addendum: 05/02/20 at 0154 by David Mcgowan RN RN Medication will not scan.
--- NOTE | 2020-05-02 02:00 | NUR ---
Patient fighting vent. Propofol drip increase to 25 mcg/kg/min.
--- NOTE | 2020-05-02 02:03 | NUR ---
Group Work Program Director at bedside for BMP. Specimen collected and specimen sent to lab.
--- NOTE | 2020-05-02 02:35 | NUR ---
Patient SpO2 85-86%. RT paged and RT responds immediately. FiO2 increase to 80% by RT. Levophed drip increase to 14 mcg/min with BP 101/49.
--- NOTE | 2020-05-02 02:35 | NUR ---
INCREASED FIO2 TO 80% DUE TO SAT 85%.
[2020-05-02 02:40] LABS: BUN/Creatinine Ratio 16.8; Calcium 6.6 mg/dL (8.5-10.1); Potassium 5.3 mmol/L (3.5-5.1)
--- NOTE | 2020-05-02 02:45 | NUR ---
BP 92/43. Levophed drip increase to 16 mcg/min.
--- NOTE | 2020-05-02 03:00 | NUR ---
Levophed drip increase to 18 mcg/min.
--- NOTE | 2020-05-02 03:19 | NUR ---
BP 87/48. Levophed drip increase to 20 mcg/min.
--- NOTE | 2020-05-02 03:37 | NUR ---
BP 104/49. Levophed drip increase to 22 mcg/min. SpO2 90-91%.
[2020-05-02] MEDS: SODIUM BICARB 50ML SYR 75 ML in SOD CHL 0.45% 1,000 ML IV SCH (03:49)
--- NOTE | 2020-05-02 03:49 | NUR ---
IVF Na Bicarb drip: 0.45% 1000 ml with Na Bicarb 75 meq/75 ml changed to new bag and resumed infusion rate to 75 ml/hr.
--- NOTE | 2020-05-02 04:00 | NUR ---
BP 100/45. Levophed drip increase to 24 mcg/min.
--- NOTE | 2020-05-02 04:04 | NUR ---
Dopamine drip bag changed to new bag and resumed infusion rate at 15 mcg/kg/min.
[2020-05-02] MEDS: PIPERACILLIN-TAZOB 3.375GM 100 ML IV SCH ×3 (05:36→22:00)
--- NOTE | 2020-05-02 05:36 | NUR ---
Zosyn 08/3374 GM IV given.
--- NOTE | 2020-05-02 06:12 | NUR ---
Versed drip bag changed to new bag and resumed infusion at rate of 15 mg/hr.
--- NOTE | 2020-05-02 06:40 | NUR ---
Absorber Operator called patient daughter Ilsa. Ilsa is updated with POC during the night. No further questions.
[2020-05-02] MEDS: NOREPINEPHRINE 8 MG/250ML KIT 250 ML IV SCH ×3 (06:58→19:14)
--- NOTE | 2020-05-02 06:59 | NUR ---
Levophed drip bag changed to new bag and resumed infusion rate of 24 mcg/min. Propofol drip bottle changed to new bag and resumed infusion rate 25 mcg/kg/min.
--- NOTE | 2020-05-02 08:00 | NUR ---
COOLING MEASURES IN PLACE, ICE PACKS IN ARM PITS, GROINS AND BEHIND PT'S NECK. PT'S TEMP 101.0 RECTALLY.
--- NOTE | 2020-05-02 08:00 | NUR ---
AM ASSESSMENT COMPLETED, ORAL CARE RENDERED PER VAP PROTOCOL, REPOSITIONED FOR COMFORT. PT ON MULTIPLE GTT'S FOR BP SUPPORT, SEE IV FLOW SHEET FOR IV TITRATION. REPOSITIONED FOR COMFORT, PT HAS ANASARCA. ON RENAL FAILURE AND HYPONATREMIC, PT BEEN CLOSELY MONITORED AND FOLLOWED BY DR. RODRIGUEZ [facility] HAIR AND MAKEUP DESIGNER. SKIN REMAINS INTACT. REPOSITIONED FOR COMFORT.
[2020-05-02] MEDS: PANTOPRAZOLE 40 MG/10 ML VIAL INJ IV SCH ×2 (09:37→22:00)
[2020-05-02] MEDS: ENOXAPARIN SOD 40 MG/0.4 ML SYRINGE SC SCH (09:37)
[2020-05-02] MEDS: ASPirin 81 mg TAB NG SCH (09:37)
[2020-05-02] MEDS: FUROSEMIDE 40 MG/4 ML VIAL IV SCH ×2 (09:40→22:00)
[2020-05-02] MEDS: CLOPIDOGREL BISULFATE 75 MG TAB PO SCH (09:40)
--- NOTE | 2020-05-02 10:00 | NUR ---
Respiratory note: INCREASED FIO2 TO 85% DUE TO SPO2 88%
--- NOTE | 2020-05-02 10:15 | NUR ---
Nutrition Consult Consider Jevity 1.2 at a goal rate of 50 ml/hr at current rate of propofol per MD approval Est energy needs 4867-3608 kcal (30-35 kcal/kg IBW 54.5kg) Est protein needs 55-71g (1-1.3g/kg IBW 54.5kg) Will monitor and reassess prn. Addendum: 05/02/20 at [address] Amended: Links added.
[2020-05-02 11:04] LABS: Hematocrit 33.3 % (36.0-46.0); Hemoglobin 11.1 g/dL (12.2-16.2); Mean Corpuscular Hgb Conc. 33.5 g/dL (32.0-36.0); Mean Corpuscular Volume 95.4 fL (80.0-100.0); Platelet Count (auto) 205 10^3/uL (140-450); Red Blood Cells 3.49 10^6/uL (4.0-5.20); White Blood Cell 25.9 10^3/uL (4.4-10.8)
[2020-05-02 11:19] LABS: Basophils % (manual) 0 (0.0-2.0); Blast Cells 0; Eosinophils % (manual) 0 (0-7); Myelocytes % 0; Reactive Lymphocytes 0
[2020-05-02 11:21] LABS: Albumin 1.6 g/dL (3.4-5.0); Calcium 6.8 mg/dL (8.5-10.1); Potassium 4.1 mmol/L (3.5-5.1)
[2020-05-02 11:24] LABS: BUN/Creatinine Ratio 16.9; Bilirubin, Total 1.4 mg/dL (0.2-1.0); Total Protein 5.2 g/dL (6.4-8.2)
[2020-05-02 11:36] LABS: INR 1.07 (0.9-1.15); Partial Thromboplastin Time 37.6 sec (23.0-31.2)
--- NOTE | 2020-05-02 11:40 | NUR ---
PAGED DR. RODRIGUEZ REGARDING CRITICAL LABS, THIS IS 2ND PAGE.
[2020-05-02 11:46] LABS: Band Neutrophils % (manual) 11; Lymphocytes % (manual) 2 (10.0-50.0); Metamyelocytes % 1; Monocytes % (manual) 5 (0-12); Promyelocytes % 1
[2020-05-02] MEDS ORDERED: FUROSEMIDE 100 MG/10ML VIAL IV ONE (12:00)
--- NOTE | 2020-05-02 12:04 | NUR ---
NOTED THAT DR. RODRIGUEZ ENTER ORDERS FOR LASIX IVP. [facility] ORDERS.
--- NOTE | 2020-05-02 13:27 | NUR ---
DR. RODRIGUEZ ROUNDING ON PT. UPDATED ON PT'S CONDITION. UOP. ASSESSED PT FOR EDEMA, NEW ORDERS RECEIVED.
--- NOTE | 2020-05-02 14:00 | NUR ---
SPONGE BATH GIVEN LINEN CHANGED WITH ERIKA REDDING'S ASSISTANCE, PT'S SKIN REMAINS INTACT. STEPHANI CARE AND PIRES CARE RENDERED. PT HAS INCONTINENCE ASSOCIATED DERMATITIS ON RT GROIN. CLEANED AREA WITH SOAP AND WATER. PADDED DRY. CENTRAL LINE DRESSING CHANGED USING A STERILE TECHNIQUE DRESSING WAS SOILED. ITER DRY APPLIED TO PT'S RT GROIN. REPOSITIONED PT FOR COMFORT.
--- NOTE | 2020-05-02 14:26 | NUR ---
US TECH AT BEDSIDE TO DO US OF ABDOMEN.
[2020-05-02] MEDS: SODIUM BICARBONATE 50ML VIAL 150 ML in D5W 5% 1,000 ML IV SCH (17:10)
[2020-05-02 22:39] LABS: BUN/Creatinine Ratio 18.2; Calcium 6.5 mg/dL (8.5-10.1); Potassium 3.9 mmol/L (3.5-5.1)
[2020-05-02] MEDS ORDERED: SODIUM CHL 3% 150 ML IV ONE (23:00)
[2020-05-02] MEDS ORDERED: SODIUM CHL 3% 500 ML IV ONE (23:15)
--- NOTE | 2020-05-02 23:39 | NUR ---
REPEAT Na LEVEL 119, DR MONTANEZ ORDERS 3% NaCL AT 30 CC/HR FOR 5 HRS.
[2020-05-03] VITALS (98 sets, daily range): BP systolic 71–174; BP diastolic 28–72
[2020-05-03] MEDS: NOREPINEPHRINE 8 MG/250ML KIT 250 ML IV SCH ×3 (02:36→13:21)
[2020-05-03] MEDS: DOPamine 1600MCG/ML D5W 250 ML IV SCH (02:37)
[2020-05-03] MEDS: PROPOFOL 100 ML IV SCH ×4 (03:58→22:16)
[2020-05-03] MEDS: PIPERACILLIN-TAZOB 3.375GM 100 ML IV SCH ×3 (05:00→21:55)
[2020-05-03] MEDS: MIDAZOLAM DRIP 50 mg/50mL 50 ML IV SCH ×4 (05:02→22:32)
[2020-05-03 05:22] LABS: Basophils # (auto) 0 10 ^3/uL (0-0.2); Basophils % (auto) 0.1 % (0.0-2.0); Calcium 6.5 mg/dL (8.5-10.1); Eosinophils # (auto) 0.3 10 ^3/uL (0-0.8); Eosinophils % (auto) 1.1 % (0.0-7.0); Hemoglobin 10.2 g/dL (12.2-16.2); Lymphocytes % (auto) 3.9 % (10.0-50.0); Mean Corpuscular Hemoglobin 31.1 pg (28.0-32.0); Mean Corpuscular Hgb Conc. 32.9 g/dL (32.0-36.0); Mean Corpuscular Volume 94.5 fL (80.0-100.0); Monocytes # (auto) 0.4 10 ^3/uL (0-1.3); Monocytes % (auto) 1.8 % (0.0-12.0); Neutrophils # (auto) 22.6 10 ^3/uL (1.6-8.6); Neutrophils % (auto) 93.1 % (37.0-80.0); Nucleated Red Blood Cells % 2.4 %; Platelet Count (auto) 180 10^3/uL (140-450); Potassium 3.6 mmol/L (3.5-5.1); Red Blood Cells 3.28 10^6/uL (4.0-5.20); Red Cell Distribution Width 16.1 % (11.8-14.3); White Blood Cell 24.3 10^3/uL (4.4-10.8)
--- NOTE | 2020-05-03 10:30 | NUR ---
Dr. Hewitt at the bedside.
[2020-05-03] MEDS: CLOPIDOGREL BISULFATE 75 MG TAB PO SCH (10:35)
[2020-05-03] MEDS: ASPirin 81 mg TAB NG SCH (10:35)
[2020-05-03] MEDS: FUROSEMIDE 40 MG/4 ML VIAL IV SCH ×2 (10:35→21:56)
[2020-05-03] MEDS: PANTOPRAZOLE 40 MG/10 ML VIAL INJ IV SCH ×2 (10:35→21:55)
[2020-05-03] MEDS: ENOXAPARIN SOD 40 MG/0.4 ML SYRINGE SC SCH (10:35)
--- NOTE | 2020-05-03 10:55 | NUR ---
Rectal temperature 100.2, cooling measures initiated per protocol. Ice packs applied to patient's axillary and groin areas.
[2020-05-03] MEDS: SODIUM BICARBONATE 50ML VIAL 150 ML in D5W 5% 1,000 ML IV SCH (12:17)
[2020-05-03] MEDS ORDERED: PHENYLEPHRINE INJ 40 MG in SODIUM CHL 0.9% 250 ML IV SCH (14:45)
--- NOTE | 2020-05-03 15:00 | NUR ---
Dr. Hewitt notified the patient is bleeding marty red blood from her right nares. Approximately 1250ml of blood suctioned from the patient's right nares. Dr. Hewitt arrived at bedside orders received to give the patient 2 unit of Emergency PRBC's STAT.
[2020-05-03] MEDS ORDERED: PHENYLEPHRINE HCL 10 MG/ML VL ONE (15:15)
--- NOTE | 2020-05-03 15:20 | NUR ---
Emergency blood initiated per protocol. Unit number [id number] and [id number] was given to the patient after verification by 2 RN's. Addendum: 05/03/20 at 1524 by Luna Reyes RN RN verified by luna reyes rn and alejandra siddiqui rn.
--- NOTE | 2020-05-03 15:38 | NUR ---
First unit of PRBC completed. No s/s of blood transfusion reaction noted. [id number]
[2020-05-03 15:47] LABS: Hematocrit 26.8 % (36.0-46.0); Hemoglobin 9.1 g/dL (12.2-16.2); Mean Corpuscular Hgb Conc. 33.9 g/dL (32.0-36.0); Mean Corpuscular Volume 94.4 fL (80.0-100.0); Platelet Count (auto) 145 10^3/uL (140-450); Red Blood Cells 2.84 10^6/uL (4.0-5.20); Red Cell Distribution Width 16.4 % (11.8-14.3); White Blood Cell 19.6 10^3/uL (4.4-10.8)
[2020-05-03] MEDS: NOREPINEPHRINE BITARTRATE 16 MG in SODIUM CHL 0.9% 250 ML IV SCH (15:48)
--- NOTE | 2020-05-03 16:02 | NUR ---
Second unit of PRBC completed. No s/s of blood transfusion reaction noted. [id number]
[2020-05-03 16:06] LABS: BUN/Creatinine Ratio 17.6; Calcium 6.1 mg/dL (8.5-10.1); Potassium 3.5 mmol/L (3.5-5.1)
[2020-05-03] MEDS: VASOPRESSIN 50 UNITS in D5W 5% 247.5 ML IV SCH (16:13)
[2020-05-03 16:38] LABS: Basophils % (manual) 0 (0.0-2.0); Blast Cells 0; Metamyelocytes % 0; Myelocytes % 0; Promyelocytes % 0; Reactive Lymphocytes 0
[2020-05-03 16:39] LABS: INR 0.99 (0.9-1.15); Partial Thromboplastin Time 42.7 sec (23.0-31.2)
--- NOTE | 2020-05-03 19:16 | NUR ---
Report received from ERIKA Carrasco. Patient intubated with ETT 8.0 at 25 CM L/L to vent. Vent settings: AC 16 Vt 500 FiO2 80% PEEP 10. IVF: Na Bicarb drip D5W 1000 ml with Na Bicarb 150 meq/150 ml infusion at 60 ml/hr; Levophed drip infusion at 21.99 mcg/min; Vasopressin 0.01 units/hr; Versed 15 mg/hr; Propofol drip infusion at 25 mcg/kg/min. Will continue to monitor VS, focus on BP, RASS -3, and clinical status.
[2020-05-03 19:33] LABS: Band Neutrophils % (manual) 2; Eosinophils % (manual) 1 (0-7); Lymphocytes % (manual) 4 (10.0-50.0); Monocytes % (manual) 3 (0-12)
[2020-05-03] MEDS: LINEZOLID 600MG/300ML 300 ML IV SCH (20:00)
--- NOTE | 2020-05-03 20:00 | NUR ---
Zyvox 600 mg IV given. Medication will not scan.
--- NOTE | 2020-05-03 21:09 | NUR ---
PAGED HOSPITALIST REGARDING PTS BS AND ORDERS FOR NEBULIZED TXS.
--- NOTE | 2020-05-03 21:10 | NUR ---
RECEIVED CALL BACK FROM HOSPITALIST BETH LANDERS. ORDERS RECEIVED FOR NEBULIZED TXS. WILL COMMUNICATE TO ERIKA Fleming AND WILL CARRY OUT ORDERS.
--- NOTE | 2020-05-03 21:58 | NUR ---
Rtn scheduled medication given. See e-MAR.
--- NOTE | 2020-05-03 22:17 | NUR ---
Propofol drip changed to new bottle and infusion resumed at 25 mcg/kg/min.
[2020-05-03] MEDS: IPRATROPIUM BROM 0.5 MG/2.5ML INH SOL NEB PRN (22:21)
[2020-05-03] MEDS: ALBUTEROL SULF 2.5 MG/0.5ML(0.5%) NEB SOLN NEB PRN (22:21)
--- NOTE | 2020-05-03 22:21 | NUR ---
AT BEDSIDE FOR ROUTINE VENT CHECK. BS ARE COURSE WHEEZES, MED NEB TX GIVEN INLINE WITHOUT ADVERSE REACTION NOTED. NO VENT CHANGES MADE AT THIS TIME. WILL CONTINUE TO MONITOR.
--- NOTE | 2020-05-03 22:33 | NUR ---
Versed drip bag changed to new bag and infusion resumed at 15 mg/hr. Addendum: 05/04/20 at 0557 by David Mcgowan RN RN Medication will not scan.
[2020-05-04] VITALS (105 sets, daily range): BP systolic 92–146; BP diastolic 47–78
--- NOTE | 2020-05-04 00:15 | NUR ---
RT decrease FiO2 to 75%.
--- NOTE | 2020-05-04 00:15 | NUR ---
AT BEDSIDE FOR ROUTINE VENT CHECK. FIO2 TITRATED TO 75% FIO2 PT TOLERATING WELL. ERIKA EVANS COMMUNICATED ON O2 CHANGE. WILL CONTINUE TO MONITOR.
[2020-05-04] MEDS: MIDAZOLAM DRIP 50 mg/50mL 50 ML IV SCH ×6 (01:09→23:13)
--- NOTE | 2020-05-04 01:09 | NUR ---
Versed drip changed to new bag and resumed infusion at 15 mg/hr. Addendum: 05/04/20 at 0557 by David Mcgowan RN RN Medication will not scan.
[2020-05-04] MEDS: PROPOFOL 100 ML IV SCH ×4 (02:37→18:54)
--- NOTE | 2020-05-04 02:38 | NUR ---
Propofol drip changed to new bottle and resumed infusion at 25 mcg/kg/min.
--- NOTE | 2020-05-04 04:03 | NUR ---
Respiratory note: AT BEDSIDE FOR END OF SHIFT VENT CHECK. NO CHANGES DONE WILL HAVE DAY SHIFT CONTINUE POC.
[2020-05-04 04:38] LABS: Basophils # (auto) 0 10 ^3/uL (0-0.2); Basophils % (auto) 0.2 % (0.0-2.0); Eosinophils # (auto) 0.3 10 ^3/uL (0-0.8); Eosinophils % (auto) 1.4 % (0.0-7.0); Hematocrit 32.5 % (36.0-46.0); Hemoglobin 10.9 g/dL (12.2-16.2); Lymphocytes # (auto) 0.4 10 ^3/uL (0.4-5.4); Lymphocytes % (auto) 1.8 % (10.0-50.0); Mean Corpuscular Hemoglobin 30.3 pg (28.0-32.0); Mean Corpuscular Hgb Conc. 33.5 g/dL (32.0-36.0); Mean Corpuscular Volume 90.5 fL (80.0-100.0); Monocytes # (auto) 0.1 10 ^3/uL (0-1.3); Monocytes % (auto) 0.3 % (0.0-12.0); Neutrophils # (auto) 19.4 10 ^3/uL (1.6-8.6); Neutrophils % (auto) 96.3 % (37.0-80.0); Platelet Count (auto) 123 10^3/uL (140-450); Red Blood Cells 3.59 10^6/uL (4.0-5.20); Red Cell Distribution Width 16.9 % (11.8-14.3); White Blood Cell 20.1 10^3/uL (4.4-10.8)
--- NOTE | 2020-05-04 04:40 | NUR ---
Bed bath and linen change given.
[2020-05-04 04:50] LABS: Calcium 6.4 mg/dL (8.5-10.1); Potassium 3.2 mmol/L (3.5-5.1)
[2020-05-04 04:53] LABS: BUN/Creatinine Ratio 20.1
[2020-05-04] MEDS: PIPERACILLIN-TAZOB 3.375GM 100 ML IV SCH ×3 (05:36→21:33)
--- NOTE | 2020-05-04 05:36 | NUR ---
Zosyn 3.375 Gm IV infusion started.
--- NOTE | 2020-05-04 05:47 | NUR ---
Versed drip bag changed to new bag and resumed infusion at 15 mg/hr. Addendum: 05/04/20 at 0550 by David Mcgowan RN RN Medication will not scan.
[2020-05-04] MEDS: NOREPINEPHRINE BITARTRATE 16 MG in SODIUM CHL 0.9% 250 ML IV SCH ×2 (05:55→21:56)
--- NOTE | 2020-05-04 05:55 | NUR ---
Levophed drip changed to new bag and resumed at 21.99 mcg/min. Medication will not scan.
[2020-05-04] MEDS: IPRATROPIUM BROM 0.5 MG/2.5ML INH SOL NEB PRN ×2 (06:45→14:11)
[2020-05-04] MEDS: ALBUTEROL SULF 2.5 MG/0.5ML(0.5%) NEB SOLN NEB PRN ×2 (06:45→14:11)
[2020-05-04] MEDS: LINEZOLID 600MG/300ML 300 ML IV SCH ×2 (08:07→19:52)
[2020-05-04] MEDS: SODIUM BICARBONATE 50ML VIAL 150 ML in D5W 5% 1,000 ML IV SCH (09:52)
[2020-05-04] MEDS: ENOXAPARIN SOD 40 MG/0.4 ML SYRINGE SC SCH (09:53)
[2020-05-04] MEDS: CLOPIDOGREL BISULFATE 75 MG TAB PO SCH (09:53)
[2020-05-04] MEDS: ASPirin 81 mg TAB NG SCH (09:53)
[2020-05-04] MEDS: FUROSEMIDE 40 MG/4 ML VIAL IV SCH ×2 (09:53→21:33)
[2020-05-04] MEDS: PANTOPRAZOLE 40 MG/10 ML VIAL INJ IV SCH ×2 (09:53→21:33)
--- NOTE | 2020-05-04 10:05 | NUR ---
FAMILY Received phone call from patients panda Godwin, password provided and updated on patient condition. Will continue to monitor patient.
--- NOTE | 2020-05-04 10:10 | NUR ---
MD Dr. Hewitt at bedside updated on patient condition with new orders, this RN to input into system. Will continue to monitor patient closely.
[2020-05-04] MEDS: POTASSIUM CHL 20MEQ/100ML 100 ML IV SCH ×2 (10:34→12:32)
[2020-05-04] MEDS: DOPamine 1600MCG/ML D5W 250 ML IV SCH (10:38)
--- NOTE | 2020-05-04 10:38 | NUR ---
Nutrition Followup Note Wt 129.5kg Pt is intubated and sedated in ICU with propofol running at 16.329 ml/hr providing 431 kcals from lipids. Pt is currently NPO with no diet order. Per RN, awaiting orders from MD regarding nutrition for pt. Consider TF of Jevity 1.2 at a goal rate of 50 ml at current rate of propofol if TF ordered per MD approval Est energy needs 3900-9806 kcal (30-35 kcal/kg IBW 54.5kg) Est protein needs 55-71g (1-1.3g/kg IBW 54.5kg) Will monitor and reassess prn. Labs: Na 119L, K 3.2L, Cl 83L, GLUC 140H, Creat 1.89H, BUn 38H, Ca 6.4L, T bili 1.4H BM: Pt with no BM per Rn note, pt with 160 ml gastric drainage 05/04 Skin: BS 10 high risk, full details in children[facility] zoo caretaker note PES: Altered nutrition related labs r/t current and chronic medical conditions aeb pt with hyponatremia, hyperkalemia, elevated RFTs, hypoalb Inadequate oral intake r/t current medical condition aeb pt is NPO, intubated/sedated Comments: 1) Continue to monitor po status, labs, skin 2) refer pt to OPD on Dc 3) Continue current plan of care Expected Outcomes/Goals: 1) Consider alternate nutrition if pt NPO >48hrs 2) Consider Jevity 1.2 at 50 ml/hr at current rate of propofol if TF is recommended per MD approval 3) advance diet as medically feasible 4) f/u 2-3 days
--- NOTE | 2020-05-04 12:30 | NUR ---
MD Dr. Ortiz at bedside updated on patient condition with no new orders. Will continue to monitor patient closely.
--- NOTE | 2020-05-04 13:59 | NUR ---
RESPIRATORY RT Berta at bedside to change Fio2 down to 60%. Patient tolerated well.
[2020-05-04] MEDS: VASOPRESSIN 50 UNITS in D5W 5% 247.5 ML IV SCH (15:45)
--- NOTE | 2020-05-04 19:07 | NUR ---
Report received from ERIKA Nelson. Patient intubated with ETT 8.0 25 CM L/L to vent. Vent settings: AC 16 Vt 500 FiO2 70% PEEP 10. IVF: Dopamine drip at 2.5 mcg/kg/min; Levophed (DS) drip at 13.99; Vasopressin drip at 0.01 units/min; Versed drip at 15 mg/hr; Propofol drip at 24.99 mcg/kg/min. Will continue with POC; and, will continue to monitor VS, focus on BP, RASS -3, and clinical status.
--- NOTE | 2020-05-04 19:40 | NUR ---
Upon attempting flush REJ, SL fell out. Catheter intact and pressure dressing applied.
--- NOTE | 2020-05-04 19:52 | NUR ---
Zyvox 600 mg IV infusion started.
--- NOTE | 2020-05-04 21:34 | NUR ---
Rtn scheduled medications given. See e-MAR.
--- NOTE | 2020-05-04 21:57 | NUR ---
Levophed drip bag exchanged to new bag. Medication will not scan.
--- NOTE | 2020-05-04 23:13 | NUR ---
Versed drip changed to new bag and resumed infusion at 15 mg/hr.
[2020-05-05] VITALS (102 sets, daily range): BP systolic 75–119; BP diastolic 44–84
[2020-05-05] MEDS: PROPOFOL 100 ML IV SCH ×4 (01:04→16:22)
--- NOTE | 2020-05-05 01:05 | NUR ---
Propofol drip changed to new bottle.
[2020-05-05] MEDS: MIDAZOLAM DRIP 50 mg/50mL 50 ML IV SCH ×2 (03:16→09:24)
--- NOTE | 2020-05-05 03:16 | NUR ---
Versed drip changed to new bag and resumed at 15 mg/hr.
--- NOTE | 2020-05-05 03:31 | NUR ---
Transition Teacher on unit. Mechanical Sound Technician collected am labs and given to Transition Teacher and specimens sent to lab.
[2020-05-05 04:04] LABS: Hematocrit 31.9 % (36.0-46.0)
[2020-05-05 04:08] LABS: Hemoglobin 10.7 g/dL (12.2-16.2); Mean Corpuscular Hemoglobin 30.7 pg (28.0-32.0); Mean Corpuscular Hgb Conc. 33.6 g/dL (32.0-36.0); Mean Corpuscular Volume 91.3 fL (80.0-100.0); Platelet Count (auto) 120 10^3/uL (140-450); Red Blood Cells 3.49 10^6/uL (4.0-5.20); Red Cell Distribution Width 16.7 % (11.8-14.3)
[2020-05-05 04:17] LABS: White Blood Cell 30.1 10^3/uL (4.4-10.8)
[2020-05-05 04:18] LABS: Basophils % (manual) 0 (0.0-2.0); Blast Cells 0; Myelocytes % 0; Promyelocytes % 0; Reactive Lymphocytes 0
--- NOTE | 2020-05-05 04:20 | NUR ---
CRITICAL LAB: WBC 30.1. Hospitalist paged.
[2020-05-05 04:28] LABS: Calcium 6.6 mg/dL (8.5-10.1); Potassium 3.3 mmol/L (3.5-5.1)
[2020-05-05 04:30] LABS: BUN/Creatinine Ratio 21.9
--- NOTE | 2020-05-05 04:40 | NUR ---
Hospitalist BETH Weldon return page. Provider notified of WBC 30.1 with preceding day WBC. No orders given.
[2020-05-05 04:51] LABS: Band Neutrophils % (manual) 29; Eosinophils % (manual) 2 (0-7); Lymphocytes % (manual) 5 (10.0-50.0); Metamyelocytes % 2; Monocytes % (manual) 6 (0-12)
[2020-05-05] MEDS: PIPERACILLIN-TAZOB 3.375GM 100 ML IV SCH ×3 (05:41→21:36)
--- NOTE | 2020-05-05 05:44 | NUR ---
Zosyn 3.375 Gm IV started. Propofol drip changed to new bottle and resumed infusion at 24.99 mcg/kg/min.
--- NOTE | 2020-05-05 07:15 | NUR ---
REPORT OBTAINED UPDATED ON PLAN OF CARE. PATIENT REMAINS INTUBATED/SEDATED/ ON PRESSORS. SEDATION AND PRESSORS INFUSING TO RIGHT FEMORAL TLC. PATIENT TOLERATING VENTILATOR WELL. SEE FURTHER NOTES/ INTERVENTIONS.
[2020-05-05] MEDS: LINEZOLID 600MG/300ML 300 ML IV SCH ×2 (09:24→20:05)
[2020-05-05] MEDS: DOPamine 1600MCG/ML D5W 250 ML IV SCH (09:24)
[2020-05-05] MEDS: ASPirin 81 mg TAB NG SCH (09:27)
[2020-05-05] MEDS: CLOPIDOGREL BISULFATE 75 MG TAB PO SCH (09:27)
[2020-05-05] MEDS: PANTOPRAZOLE 40 MG/10 ML VIAL INJ IV SCH ×2 (09:27→21:35)
[2020-05-05] MEDS: ENOXAPARIN SOD 40 MG/0.4 ML SYRINGE SC SCH (09:28)
[2020-05-05] MEDS: FUROSEMIDE 40 MG/4 ML VIAL IV SCH ×2 (09:28→21:35)
--- NOTE | 2020-05-05 10:34 | NUR ---
MD Dr. Hewitt updated on patients status. New orders in place.
--- NOTE | 2020-05-05 10:40 | NUR ---
Family updated on pt status Family of KAYA JIMENEZ updated on patient's status and condition. All questions and concerns addressed. Daughter, Ilsa verbalized understanding.
[2020-05-05] MEDS: POTASSIUM CHL 20MEQ/100ML 100 ML IV SCH ×2 (10:51→16:21)
[2020-05-05 11:12] LABS: Albumin 1.1 g/dL (3.4-5.0)
[2020-05-05 11:19] LABS: Pre Albumin 4.4 mg/dL (20.0-40.0)
[2020-05-05] MEDS: VASOPRESSIN 50 UNITS in D5W 5% 247.5 ML IV SCH (14:28)
--- NOTE | 2020-05-05 16:00 | NUR ---
COMPLETE LINEN CHANGE DONE PATIENT NOTED TO LEAK AROUND RECTAL TUBE APPROX 75ML OF BROWN LIQUID STOOL NOTED. STEPHANI CARE PROVIDED. MASD TO PERIANAL AREA NOTED. ZGUARD APPLIED, OPTIFOAM REMAINS IN PLACE. COMPLETE BED LINEN CHANGE. PATIENT TOLERATED WELL. TURNED TO SIDE TO OFF LOAD PRESSURE, BILATERAL CRACKED HEELS OFF LOADED FROM BED WITH PILLOWS.
[2020-05-05] MEDS: Nepro With Carb Steady 1 Liter Bottle GT SCH (16:21)
--- NOTE | 2020-05-05 16:35 | NUR ---
NUTRITION PATIENT PLACED ON TUBE FEEDINGS VIA OG INSTRUCTED BY MD AT LOW RATE. PLACEMENT VERIFIED VIA AUSCULTATION AND ASPIRATION. FEEDINGS STARTED AT 10ML/HR. ASPIRATION PRECAUTIONS IN PLACE.
--- NOTE | 2020-05-05 19:00 | NUR ---
Opening shift note: Report received on patient. Patient intubated ETT 8.0/ 24CM @ LL, VENT settings: AC 16/ TV 500/ FIO2 70%/ PEEP 10/ O2 SAT @ 95%, bilateral lung sounds coarse. Central line TLC to Right Femoral infusing Versed, PROP and Levo. OG tube in place, placement verified. Patient currently running feeding at 10mL/hr. Irwin catheter draining via gravity with yellow urine. Rectal tube in place draining via gravity with liquid stool noted. Safety precautions in place. RN will continue to monitor and assess patient.
[2020-05-06] VITALS (96 sets, daily range): BP systolic 89–111; BP diastolic 39–60
--- NOTE | 2020-05-06 00:30 | NUR ---
Bed linen changed: RN changed patients bed linen. Opti-foam to sacrum also changed. Patient tolerated intervention well with no s/s of discomfort or distress. RN will continue to monitor and assess patient.
[2020-05-06] MEDS: PROPOFOL 100 ML IV SCH (03:30)
--- NOTE | 2020-05-06 03:59 | NUR ---
IV removal IV to right hand DC'd with sterile technique, catheter fully intact. Pressure dressing applied to site. Patient tolerated procedure well.
[2020-05-06 04:24] LABS: Hemoglobin 10.1 g/dL (12.2-16.2); Red Cell Distribution Width 16.8 % (11.8-14.3)
[2020-05-06 04:27] LABS: Hematocrit 30.5 % (36.0-46.0); Mean Corpuscular Hemoglobin 30.6 pg (28.0-32.0); Mean Corpuscular Hgb Conc. 33.1 g/dL (32.0-36.0); Mean Corpuscular Volume 92.6 fL (80.0-100.0); Platelet Count (auto) 146 10^3/uL (140-450)
[2020-05-06 04:47] LABS: BUN/Creatinine Ratio 23.5; Potassium 3.8 mmol/L (3.5-5.1)
[2020-05-06 05:16] LABS: White Blood Cell 38.5 10^3/uL (4.4-10.8)
[2020-05-06 05:17] LABS: Basophils % (manual) 0 (0.0-2.0); Blast Cells 0; Myelocytes % 0; Promyelocytes % 0; Reactive Lymphocytes 0
[2020-05-06] MEDS: PIPERACILLIN-TAZOB 3.375GM 100 ML IV SCH (06:00)
[2020-05-06 06:10] LABS: Band Neutrophils % (manual) 15; Eosinophils % (manual) 2 (0-7); Lymphocytes % (manual) 6 (10.0-50.0); Metamyelocytes % 1; Monocytes % (manual) 4 (0-12)
[2020-05-06] MEDS: LINEZOLID 600MG/300ML 300 ML IV SCH ×2 (08:00→20:00)
[2020-05-06] MEDS: MIDAZOLAM DRIP 50 mg/50mL 50 ML IV SCH ×2 (08:07→21:01)
[2020-05-06] MEDS: CLOPIDOGREL BISULFATE 75 MG TAB PO SCH (10:00)
[2020-05-06] MEDS: ENOXAPARIN SOD 40 MG/0.4 ML SYRINGE SC SCH (10:00)
[2020-05-06] MEDS: FUROSEMIDE 40 MG/4 ML VIAL IV SCH ×2 (10:00→21:00)
[2020-05-06] MEDS: ASPirin 81 mg TAB NG SCH (10:00)
[2020-05-06] MEDS: PANTOPRAZOLE 40 MG/10 ML VIAL INJ IV SCH ×2 (10:00→21:00)
[2020-05-06] MEDS ORDERED: MEROPENEM 500MG IVPB 50 ML IV ONE (10:15)
[2020-05-06] MEDS: NOREPINEPHRINE BITARTRATE 16 MG in SODIUM CHL 0.9% 250 ML IV SCH (10:30)
[2020-05-06] MEDS: MEROPENEM 1GM IVPB 100 ML IV SCH ×2 (11:00→23:00)
--- NOTE | 2020-05-06 11:05 | NUR ---
Nutrition Followup Notes Wt 135.7 kg Pt is intubated, sedated with propofol running at 8.2 ml/hr ml/hr providing 216 kcals from lipids. Pt is currently with EN nutrition support Nepro with Carb Steady currently at 10ml/hr. Est energy needs 6591-9994 kcal (30-35 kcal/kg IBW 54.5kg) Est protein needs 55-71g (1-1.3g/kg IBW 54.5kg) Will monitor and reassess prn. LABS: BUN 51 l, Creat 2.17 H, Ca 7.0 L, ALB 1.1 L, Cholesterol 302 H BM: Pt with diarrhea today per RN note Skin: BS 10 high risk, full details in rn intensive care unit note PES: 1) Altered nutrition related labs r/t current and chronic medical conditions aeb pt with hyponatremia, hyperkalemia, elevated RFTs, hypoalb 2) Inadequate oral intake r/t current medical condition aeb pt is NPO, intubated/sedated Comments: Will followup in 2-3 days. 1) Continue to monitor po status, labs, skin 2) Refer pt to OPD on Dc 3) Continue current plan of care
[2020-05-06] MEDS: IPRATROPIUM BROM 0.5 MG/2.5ML INH SOL NEB PRN (11:41)
[2020-05-06] MEDS: ALBUTEROL SULF 2.5 MG/0.5ML(0.5%) NEB SOLN NEB PRN (11:41)
[2020-05-06] MEDS: DOPamine 1600MCG/ML D5W 250 ML IV SCH (13:00)
--- NOTE | 2020-05-06 13:07 | NUR ---
assessment Patient is a 59 year old female in ICU on a vent. Per donna Martines prior to admission patient lived home with her and family and functioned with assistance when she is not feeling well. Patient has a fww for home use. Patients PCP is Dr Teran. Nasim Martines she cooks and cleans for patient. Patient has an advanced directive and Bobbi is POA. Nasim Martines prior to admission 1 week prior patient was having shortness of breath and 2 days prior she was coughing and became very dizzy so family called 911. I informed Bobbi I will continue to monitor and follow up as appropriate for any post discharge needs once patient is extubated. Bobbi verbalized understanding. Addendum: 05/06/20 at 1312 by Robyn GARCIA Amended: Links added.
--- NOTE | 2020-05-06 14:48 | NUR ---
SPUTUM SAMPLE COLLECTED AND SEND TO LAB
--- NOTE | 2020-05-06 16:32 | NUR ---
NIELSEN CULTURE COMPLETED INCLUDING C DIFF SENT TO THE LAB
[2020-05-07] VITALS (99 sets, daily range): BP systolic 87–122; BP diastolic 49–64
[2020-05-07] MEDS: NOREPINEPHRINE BITARTRATE 16 MG in SODIUM CHL 0.9% 250 ML IV SCH (01:45)
[2020-05-07] MEDS: MIDAZOLAM DRIP 50 mg/50mL 50 ML IV SCH ×3 (02:11→16:46)
[2020-05-07 04:45] LABS: Hematocrit 30.3 % (36.0-46.0); Hemoglobin 9.9 g/dL (12.2-16.2); Mean Corpuscular Hgb Conc. 32.7 g/dL (32.0-36.0); Mean Corpuscular Volume 91.9 fL (80.0-100.0); Platelet Count (auto) 126 10^3/uL (140-450); Red Cell Distribution Width 16.9 % (11.8-14.3)
[2020-05-07 04:48] LABS: White Blood Cell 32.3 10^3/uL (4.4-10.8)
[2020-05-07 04:50] LABS: Basophils % (manual) 0 (0.0-2.0); Blast Cells 0; Eosinophils % (manual) 0 (0-7); Myelocytes % 0; Promyelocytes % 0; Reactive Lymphocytes 0
[2020-05-07 05:05] LABS: BUN/Creatinine Ratio 26.9; Calcium 7.2 mg/dL (8.5-10.1); Potassium 3.6 mmol/L (3.5-5.1)
[2020-05-07 05:15] LABS: Band Neutrophils % (manual) 8; Lymphocytes % (manual) 7 (10.0-50.0); Metamyelocytes % 1; Monocytes % (manual) 4 (0-12)
[2020-05-07] MEDS: ACETAMINOPHEN 325 MG TAB PO PRN (07:57)
[2020-05-07] MEDS: LINEZOLID 600MG/300ML 300 ML IV SCH ×2 (07:57→20:12)
[2020-05-07] MEDS ORDERED: MEROPENEM 500MG IVPB 50 ML IV SCH (10:00)
[2020-05-07] MEDS: ENOXAPARIN SOD 40 MG/0.4 ML SYRINGE SC SCH (10:00)
[2020-05-07] MEDS: CLOPIDOGREL BISULFATE 75 MG TAB PO SCH (10:00)
[2020-05-07] MEDS: PANTOPRAZOLE 40 MG/10 ML VIAL INJ IV SCH ×2 (10:00→22:10)
[2020-05-07] MEDS: ASPirin 81 mg TAB NG SCH (10:00)
[2020-05-07] MEDS: FUROSEMIDE 40 MG/4 ML VIAL IV SCH ×2 (10:00→22:13)
[2020-05-07] MEDS: MEROPENEM 1GM IVPB 100 ML IV SCH ×2 (11:00→23:51)
--- NOTE | 2020-05-07 11:45 | NUR ---
Respiratory note: FI02 INCREASED TO 60% DUE TO PATIENT SP02 IN LOW 80'S. RN AWARE. AFTER CHANGE PATIENT OXYGEN SP02 IN LOW 90'S.
--- NOTE | 2020-05-07 11:48 | NUR ---
PATIENT OXYGEN SATURATION AT 50 % FIO2 DECREASED TO LOW 80'S NOTIFIED RT AND INCREASED BACK TO 60
--- NOTE | 2020-05-07 13:20 | NUR ---
WOUND CARE NOTE: Wound care in to see patient for skin integrity monitoring. Patient continue resting in low air loss ICU bed in Rm 104. Patient is intubated,sedated and mechanically ventilated. Patient appears to be in no pain using [place] Faces Pain Scale. Her Joao score is 10. Skin assessment done with the assistance of another nurse, ERIKA Walden. Patient's bilateral plantar feet continue to display dry, fissured callous. Patient has rectal tube in placed with liquid stools in tubing and in collection bag. Patient's bilateral lower buttocks display mild MASD. She's is receiving BID/PRN cleaning and application of Barrier cream to bilateral foot dry skin and to sacral buttocks. Repositioned patient for comfort facing her Rt side, redistributed pressure points with pillows. Patient tolerated well. RECOMMENDATION: Continuation of all wound care orders MD prescribed, continue with skin/wound plan of care, continue monitoring by wound care while patient is hospitalized. Addendum: 05/07/20 at 1644 by Marta Magana RN Amended: Links added.
[2020-05-07] MEDS ORDERED: PIPERACILLIN-TAZOB 3.375GM 0 ML IV ONE (15:56)
[2020-05-07] MEDS: Nepro With Carb Steady 1 Liter Bottle GT SCH (18:51)
[2020-05-07] MEDS: IPRATROPIUM BROM 0.5 MG/2.5ML INH SOL NEB PRN (19:20)
[2020-05-07] MEDS: ALBUTEROL SULF 2.5 MG/0.5ML(0.5%) NEB SOLN NEB PRN (19:20)
[2020-05-07] MEDS ORDERED: NOREPINEPHRINE 8 MG/250ML KIT 250 ML IV ONE (19:40)
--- NOTE | 2020-05-07 20:00 | NUR ---
RECIEVED PT VENTILATED AND SEDATE, VERSED GTT AT 10MG/HR, NO EYE OPENING, PT DOES BREATH OVER VENT RATE OF16, LEVOPHED GTT AT 12 MCG/MIN, SBP HUVERING LOW 100'S, FLEXISEAL INTACT, STOOL FOUT SMELLING, CDIFF IS NEGATIVE, SEEINTERVENTIONS FOR HEAD TO TOE ASSESSMENT ND VITAL SIGNS, STEPHANI AREA CARE DONE AND METICULOUS ORAL CARE
[2020-05-08] VITALS (102 sets, daily range): BP systolic 89–117; BP diastolic 43–66
--- NOTE | 2020-05-08 | NUR ---
FLEXISEAL TUBE LEAKING AROUND RECTUM, COMPLETE BATH AND LINEN CHANGE, OPTIFOAM DRSG PLACED ON SACRUM, ZGUARD AND BARRIER CREAM PLACED IN ALL SKIN FOLDS, REPOSITONED, ORAL CARE, RIGHT FEMEROL TLC DRSG CHANGED, REPORT GIVEN TO RICHA JAMES WHO WILL ASSUME CARE
--- NOTE | 2020-05-08 00:02 | NUR ---
RECEIVED PATIENT RECEIVED PATIENT FROM ERIKA [place]. RECEIVED ORALLY INTUBATED FEMALE PATIENT ON SEDATION. RECEIVED PATIENT ON 10MG/HR OF VERSED. PATIENT CONNECTED TO CONTINUOUS BEDSIDE MONITORS. BP IN LOW 100'S, HIGH 90'S MAP >65, WITH LEVOPHED AT 12. PATIENT ON MECHANICAL VENT ETT8.0, 24 AT THE LIP. VENT SETTINGS; AC, R16, TV 500, FIO2 60%, PEEP 10, LUNG SOUNDS ARE COARSE THROUGHOUT. OGT TUBE IN PLACE WITH FEEDINGS AT 10ML/HR, RESIDUALS CHECKED AND LESS THAN 20ML. WILL INCREASE TUBE FEEDING. PIRES DRAINING DONATO URINE. FLEXISEAL IN PLACE WITH LIQUID BROWN FOUL SMELLING BM. PATIENT HAS MASD TO BUTTOCKS. OPTIFOAM IN PLACE TO SACRUM. NO PRESSURE WOUNDS AT THIS TIME. REDNESS NOTED UNDER ABDOMINAL FOLDS. CALLOUSES AND DEEP FISSURES TO PATIENTS BILATERAL HEELS. HEELS OFFLOADED WITH PILLOWS.
--- NOTE | 2020-05-08 00:15 | NUR ---
AM CARES COMPLETE BED BATH GIVEN TO PATIENT WITH ERIKA [place]. PATIENT CLEANSED WITH CHG WIPES AND WARM SOAPY WAS CLOTHS. FLEXISEAL LEAKING LIQUID BROWN FOUL SMELLING BM. COMPLETE LINEN AND GOWN CHANGE PROVIDED.
--- NOTE | 2020-05-08 00:25 | NUR ---
Central Dressing Changes Right femoral central line dressing change done with a sterile technique. Cleansed with chloraprep scrub/betadine. Stat lock, and bio-patch as available. Occlusive dressing applied. Changed claves weekly and post lab draw.
[2020-05-08] MEDS: MIDAZOLAM DRIP 50 mg/50mL 50 ML IV SCH ×4 (04:02→19:53)
[2020-05-08 04:31] LABS: Hematocrit 27.5 % (36.0-46.0); Mean Corpuscular Hemoglobin 30.2 pg (28.0-32.0); Mean Corpuscular Hgb Conc. 32.8 g/dL (32.0-36.0); Mean Corpuscular Volume 92.2 fL (80.0-100.0); Platelet Count (auto) 109 10^3/uL (140-450); Red Blood Cells 2.98 10^6/uL (4.0-5.20); White Blood Cell 22.7 10^3/uL (4.4-10.8)
[2020-05-08 04:32] LABS: Basophils % (manual) 0 (0.0-2.0); Blast Cells 0; Eosinophils % (manual) 0 (0-7); Promyelocytes % 0; Reactive Lymphocytes 0
[2020-05-08 05:33] LABS: BUN/Creatinine Ratio 31.3; Calcium 7.1 mg/dL (8.5-10.1); Potassium 3.1 mmol/L (3.5-5.1)
--- NOTE | 2020-05-08 06:52 | NUR ---
CLOSING PATIENT REMAINS MECHANICALLY VENTILATED AND SEDATED ON 10MG/HR OR VERSED. LEVO STILL RUNNING AT 12MCG, KEEPING MAP >65. TOTAL TUBE FEEDING INTAKE 95ML. URINE OUTPUT 650ML. FLEXISEAL BAG CHANGED. WILL ENDORSED CARE TO DAYSHIFT RN.
[2020-05-08] MEDS: LINEZOLID 600MG/300ML 300 ML IV SCH ×2 (08:00→19:51)
[2020-05-08] MEDS: FUROSEMIDE 40 MG/4 ML VIAL IV SCH ×2 (09:06→21:42)
[2020-05-08] MEDS: PANTOPRAZOLE 40 MG/10 ML VIAL INJ IV SCH ×2 (09:07→21:41)
[2020-05-08] MEDS: ASPirin 81 mg TAB NG SCH (09:07)
[2020-05-08] MEDS: ENOXAPARIN SOD 40 MG/0.4 ML SYRINGE SC SCH (09:08)
[2020-05-08] MEDS: CLOPIDOGREL BISULFATE 75 MG TAB PO SCH (09:08)
--- NOTE | 2020-05-08 09:30 | NUR ---
PATIENT DESATURATED TO 60-70 SO SUDDENLY SUCTION IF MUCUS PLUG IS PRESENT NONE NOTED. RT INCREASED FIO2 TO 80%. TO BE TITRATED TO MAINTAIN AN FI02 92%/RT. DR VALLADARES ORDERED POTASSIUM OF 3.1. HE CAME TO SEE THE PATIENT..
--- NOTE | 2020-05-08 09:32 | NUR ---
Respiratory note: PT DESATURATION IN THE 60S, INCREASED FIO2 FROM 60% TO 80%. WILL TRY TO WEAN DOWN FIO2 AT A LATER TIME.
--- NOTE | 2020-05-08 10:26 | NUR ---
Respiratory note: DECREASED FIO2 FROM 80% TO 70%. PT TOLERATING WELL VITALS ARE SPO2 96%, HR 89, RR 26. WILL CONTINUE TO MONITOR.
[2020-05-08] MEDS: MEROPENEM 1GM IVPB 100 ML IV SCH ×2 (11:00→22:50)
[2020-05-08] MEDS: POTASSIUM CHL 20MEQ/100ML 100 ML IV SCH ×4 (11:24→16:00)
[2020-05-08 12:40] LABS: Band Neutrophils % (manual) 10; Lymphocytes % (manual) 3 (10.0-50.0); Metamyelocytes % 1; Myelocytes % 1
[2020-05-08 12:42] LABS: Monocytes % (manual) 2 (0-12)
--- NOTE | 2020-05-08 12:47 | NUR ---
Nutrition Followup Notes Wt 129.2 kg Pt is intubated, sedated with propofol running at 16.329 ml/hr ml/hr providing 431 kcals from lipids. Pt is currently NPO with EN nutrition support Nepro with Carb Steady currently at 20ml/hr providing 864 kcals and 39 gm proteins. pt with inadequate EN support Est energy needs: 2850-2091 kcal (30-35 kcal/kg IBW 54.5kg), Est protein needs 55-71g (1-1.3g/kg IBW 54.5kg) Will monitor and reassess prn. LABS: BUN 77 H CREAT 2.46 H CA 7.1 L ALB 1.1 L BM: Pt with 100 ml today along with 15 ml gastric drainage per RN note Skin: BS 10 high risk, full details in care attendant note PES: 1) Altered nutrition related labs r/t current and chronic medical conditions aeb pt with hyponatremia, hyperkalemia, elevated RFTs, hypoalb 2) Inadequate oral intake r/t current medical condition aeb pt is NPO, intubated/sedated Comments: 1) Continue to monitor NPO status, EN tolerance, labs, skin. F/u high 2-3 days Rec: 1) Consider EN support with Jevity 1.2 @ 50 ml/hr as pt not on HD. 2) consider prostat 1 packet bid as RFT improve. 3) Refer pt to OPD on Dc. 4) Continue current plan of care
[2020-05-08] MEDS ORDERED: FLUCONAZOLE 200MG/100ML 100 ML IV ONE (15:00)
[2020-05-08] MEDS: VASOPRESSIN 50 UNITS in D5W 5% 247.5 ML IV SCH (15:45)
[2020-05-08] MEDS: ACETAMINOPHEN 325 MG TAB PO PRN (18:11)
[2020-05-08] MEDS: NOREPINEPHRINE BITARTRATE 16 MG in SODIUM CHL 0.9% 250 ML IV SCH (19:52)
--- NOTE | 2020-05-08 20:00 | NUR ---
RECEIVED PATIENT FROM [facility] RN RECEIVED ORALLY INTUBATED FEMALE PATIENT ON SEDATION. RECEIVED PATIENT ON 10MG/HR OF VERSED. PATIENT CONNECTED TO CONTINUOUS BEDSIDE MONITORS. BP IN LOW 100'S, HIGH 90'S MAP >65, WITH LEVOPHED AT 8MCG. PATIENT ON MECHANICAL VENT ETT 8.0, 24 AT THE LIP. VENT SETTINGS; AC, R16, TV 500, FIO2 60%, PEEP 10, LUNG SOUNDS ARE COARSE THROUGHOUT. OGT TUBE IN PLACE WITH FEEDINGS AT 20ML/HR, RESIDUALS CHECKED AND >80ML. WILL HOLD TUBE FEEDINGS FOR NOW. PIRES DRAINING DONATO URINE. FLEXISEAL IN PLACE WITH LIQUID BROWN FOUL SMELLING BM. PATIENT HAS MASD TO BILATERAL BUTTOCKS. OPTIFOAM IN PLACE TO SACRUM. NO PRESSURE WOUNDS AT THIS TIME. REDNESS NOTED UNDER ABDOMINAL FOLDS. CALLOUSES AND DEEP FISSURES TO PATIENTS BILATERAL HEELS. HEELS OFFLOADED WITH PILLOWS.
[2020-05-08] MEDS: SODIUM CHLORIDE 0.9% 1,000 ML IV SCH (21:53)
--- NOTE | 2020-05-08 22:00 | NUR ---
RESIDUALS RECHECKED RESIDUALS AT THIS TIME, STILL GREATER THAN 60ML. WILL CONTINUE TO HOLD.
--- NOTE | 2020-05-08 22:07 | NUR ---
SEDATION PATIENT BREATHING OVER THE VENT. VERSED INCREASED TO 11MG/HR, SEE IV SPREAD SHEET.
[2020-05-08] MEDS: ALBUTEROL SULF 2.5 MG/0.5ML(0.5%) NEB SOLN NEB PRN (22:10)
[2020-05-08] MEDS: IPRATROPIUM BROM 0.5 MG/2.5ML INH SOL NEB PRN (22:10)
[2020-05-08] MEDS: PROPOFOL 100 ML IV SCH (23:45)
[2020-05-09] VITALS (103 sets, daily range): BP systolic 83–139; BP diastolic 45–75
--- NOTE | 2020-05-09 00:45 | NUR ---
AM CARES FLEXISEAL FOUND TO HAVE LEAKED. COMPLETE BED BATH GIVEN TO PATIENT USING CHG WIPES AND WARM SOAPY WASH CLOTHS. COMPLETE LINEN CHANGE GIVEN. NEW GOWN PROVIDED. SKIN REASSESSED DURING THIS TIME. MASD STILL NOTED TO BILATERAL BUTTOCKS. REDNESS TO BUTTOCKS AND GROIN AREA UNCHANGED. NO OPEN WOUNDS. Z GUARD REAPPLIED TO SACRUM AND NEW OPTIFOAM PLACED TO SACRUM.
--- NOTE | 2020-05-09 01:00 | NUR ---
TUBE FEEDING RESIDUALS CHECKED AND NOW LESS THAN 20ML. CHANGED FEEDING TUBING AND FORMULA. RESTARTED TUBE FEEDING AT 10ML/HR. WILL CONTINUE TO MONITOR.
[2020-05-09] MEDS: MIDAZOLAM DRIP 50 mg/50mL 50 ML IV SCH ×4 (04:40→20:00)
--- NOTE | 2020-05-09 05:10 | NUR ---
LABS LABS COLLECTED VIA CENTRAL LINE AND SENT TO LAB
[2020-05-09] MEDS: SODIUM CHLORIDE 0.9% 1,000 ML IV SCH ×3 (05:57→22:02)
[2020-05-09 06:35] LABS: Hemoglobin 8.8 g/dL (12.2-16.2); Mean Corpuscular Hemoglobin 30.1 pg (28.0-32.0); Mean Corpuscular Hgb Conc. 32.4 g/dL (32.0-36.0); Mean Corpuscular Volume 92.8 fL (80.0-100.0); Platelet Count (auto) 100 10^3/uL (140-450); Red Blood Cells 2.91 10^6/uL (4.0-5.20); Red Cell Distribution Width 16.9 % (11.8-14.3); White Blood Cell 19.1 10^3/uL (4.4-10.8)
[2020-05-09 06:54] LABS: Basophils % (manual) 0 (0.0-2.0); Blast Cells 0; Metamyelocytes % 0; Promyelocytes % 0; Reactive Lymphocytes 0
--- NOTE | 2020-05-09 07:10 | NUR ---
CLOSING PATIENT REMAINS ON MECHANICAL VENT AND SEDATED. PATIENT ON VERSED AT 11MG/HR, LEVO AT 8MCG AND IVF AT 125ML/HR. URINE OUTPUT FOR SHIFT: 800ML. TUBE FEEDING INTAKE FOR SHIFT: 50ML. WILL ENDORSE CARE TO DAYSHIFT RN TO ASSUME CARE OF PATIENT.
[2020-05-09 07:29] LABS: BUN/Creatinine Ratio 35.2; Bilirubin, Total 1.8 mg/dL (0.2-1.0); Calcium 7.1 mg/dL (8.5-10.1); Potassium 4.2 mmol/L (3.5-5.1); Total Protein 5.1 g/dL (6.4-8.2)
[2020-05-09 07:39] LABS: Albumin 0.9 g/dL (3.4-5.0)
[2020-05-09] MEDS: LINEZOLID 600MG/300ML 300 ML IV SCH ×2 (08:44→20:30)
--- NOTE | 2020-05-09 09:23 | NUR ---
DR. WILEY Provider/Hospitalist at bedside. GAVE UPDATE ON PT.
[2020-05-09] MEDS: DOPamine 1600MCG/ML D5W 250 ML IV SCH ×3 (09:30→19:40)
[2020-05-09] MEDS: VASOPRESSIN 50 UNITS in D5W 5% 247.5 ML IV SCH ×2 (09:30→15:45)
[2020-05-09] MEDS: PROPOFOL 100 ML IV SCH ×2 (09:30→23:45)
[2020-05-09] MEDS: ASPirin 81 mg TAB NG SCH (09:45)
[2020-05-09] MEDS: FUROSEMIDE 40 MG/4 ML VIAL IV SCH ×2 (09:45→22:05)
[2020-05-09] MEDS: PANTOPRAZOLE 40 MG/10 ML VIAL INJ IV SCH ×2 (09:45→22:06)
[2020-05-09] MEDS: ENOXAPARIN SOD 40 MG/0.4 ML SYRINGE SC SCH (09:45)
--- NOTE | 2020-05-09 09:45 | NUR ---
AUSCULTATED GOOD PLACEMENT WITH OGT. NO EMESIS. BOWEL SOUNDS HYPOACTIVE ALL FOUR QUADRANTS. ABD. SOFT, ROUND, VERY LG. NEPHRO TF AT 10 CC/HR. CHECKED RESIDUAL AND OBTAINED 60 CC. TURNED OFF TUBE FEEDING.
[2020-05-09] MEDS: CLOPIDOGREL BISULFATE 75 MG TAB PO SCH (09:46)
[2020-05-09] MEDS ORDERED: ENOXAPARIN SOD 30 MG/0.3 ML SYRINGE SC SCH ×2 (10:00)
[2020-05-09] MEDS ORDERED: FLUCONAZOLE 200MG/100ML 100 ML IV SCH (10:00)
--- NOTE | 2020-05-09 10:15 | NUR ---
Respiratory note: TITRATED FIO2 TO 70%. PATIENT WAS DESATURATING AFTER TURNING PATIENT.
[2020-05-09] MEDS ORDERED: ALBUMIN 25% 100 ML IV ONE (11:00)
--- NOTE | 2020-05-09 11:45 | NUR ---
DR. VALLADARES Provider/Hospitalist at bedside.
[2020-05-09] MEDS: MEROPENEM 1GM IVPB 100 ML IV SCH ×2 (11:47→23:00)
--- NOTE | 2020-05-09 12:00 | NUR ---
PT'S. DAUGHTER HERE, DR. WILEY CALLED TO MEET WITH HER AT HOSPITAL AND GO OVER CODE STATUS. PT. IS CURRENTLY FULL CODE. PAGED DR. WILEY TO LET HIM KNOW SHE IS HERE. FLEET ADMINISTRATIVE ASSISTANT ERIKA EARLY INFORMED OF FAMILY COMING TO SEE PT.
--- NOTE | 2020-05-09 12:03 | NUR ---
returned call Dr. WILEY returned call, updated on patient status and reason for call. Continue care. SAID HE WILL BE HERE TO SPEAK WITH DTG.
--- NOTE | 2020-05-09 13:00 | NUR ---
PT'S. FLEXISEAL LEAKED LG. AMOUNT LIQUID BROWN STOOL ON FLOOR AND ON LINENS AND PADS UNDER PT. STEPHANI CARE DONE AND COMPLETE LINEN CHANGE AND GOWN. CHECKED FLEXISEAL HAD 30 ML. OF WATER INFLATED. INSTILLED 15 CC MORE TO HOLD IN PLACE. NO LEAKING OF STOOL SEEN. APPLIED BARRIER CREAM TO BUTTOCKS ED.
[2020-05-09 13:10] LABS: Band Neutrophils % (manual) 12; Eosinophils % (manual) 1 (0-7); Lymphocytes % (manual) 3 (10.0-50.0); Monocytes % (manual) 3 (0-12); Myelocytes % 2
--- NOTE | 2020-05-09 13:30 | NUR ---
PT.'S ABD. REMAINS DISTENDED, LG., ROUND, SOFT. ATTACHED OGT TO LIS AND OBTAINED 125 CC CREAMY COLOR DRAINAGE. TUBE FEEDING REMAINS OFF AT THIS TIME.
[2020-05-09] MEDS: NOREPINEPHRINE BITARTRATE 16 MG in SODIUM CHL 0.9% 250 ML IV SCH (13:54)
--- NOTE | 2020-05-09 14:23 | NUR ---
Respiratory note: VENT CHANGE PER DR. COLE, FROM AC TO PCV RR 16, PI-28, PEEP 10, I-TIME 0.8, FIO2 60%. ABG IN 1 HOUR.
--- NOTE | 2020-05-09 15:20 | NUR ---
PT'S. SON BALA RICK IN [place] [employer] AND REQUESTING LEAVE FROM [facility] TO VISIT MOM IN. RM. 104. SON GAVE CODE [id number] AND IS STATIONED IN [facility]. SPOKE WITH CUATE GILLESPIE FROM [facility] AND GAVE INFO FOR REQUEST. CASE # [id number].
--- NOTE | 2020-05-09 16:00 | NUR ---
TEMP 100.0 ORALLY. PLACED ICE PACKS ED. AXILLA. NO COVERS ON PT.
[2020-05-09 16:18] LABS: Urine Amorphous Crystal FEW /hpf (None Seen); Urine Bacteria FEW /hpf (None Seen); Urine Blood TRACE /uL (Negative); Urine Specific Gravity 1.014 (1.001-1.035); Urine WBC 4 /hpf (0 - 5)
--- NOTE | 2020-05-09 18:30 | NUR ---
RECHECKED TEMP 100.1 ORALLY. ICE PACKS REMAIN IN PLACE ED. AXILLA.
--- NOTE | 2020-05-09 19:45 | NUR ---
Opening Shift Note Received report from day shift RN Lucinda. Pt came in on 04/29/20 for SOB, cough. Pt was COVID negative. Pt was intubated in ER on 04/29. Pt was admitted to ICU and diagnosed with ARF, PNA. PMH includes CAD, LA with stents, CVA, HTN, CHF, COPD, smoker, obesity, MJ use. History obtained from previous RN and chart. Pt is currently intubated and sedated, breathing over ventilator. Versed running at 12, Levo at 8. VSS. Bed is locked at lowest position, side rails are up. No s/s of distress noted at this time. Will continue to monitor.
--- NOTE | 2020-05-09 20:10 | NUR ---
Tube feeding residual 30ml. Tube feeding restarted at 10ml/hr. Will continue to monitor.
--- NOTE | 2020-05-09 20:30 | NUR ---
Temperature Temperature 100.3 cooling measures started. Will continue to monitor.
[2020-05-10] VITALS (93 sets, daily range): BP systolic 87–142; BP diastolic 45–73
[2020-05-10] MEDS: MIDAZOLAM DRIP 50 mg/50mL 50 ML IV SCH ×8 (00:15→23:03)
--- NOTE | 2020-05-10 00:15 | NUR ---
Tube feeding 60 ml residual with 35 ml tube feeding infused. Tube feeding paused at this time. Will continue to monitor.
--- NOTE | 2020-05-10 03:40 | NUR ---
Labs drawn given to Yovany from lab
--- NOTE | 2020-05-10 04:00 | NUR ---
Complete linen change/ CHG bath Complete linen change provided for the patient. CHG wipes used for bath. New optifoam placed
[2020-05-10] MEDS: NOREPINEPHRINE BITARTRATE 16 MG in SODIUM CHL 0.9% 250 ML IV SCH (04:08)
--- NOTE | 2020-05-10 04:18 | NUR ---
Residual Residual 60ml at this time. Tube feeding remaining paused. Will continue to monitor.
--- NOTE | 2020-05-10 05:00 | NUR ---
Wound pictures taken pictures taken of the right elbow DTI, right hand blister, and buttock skin tear.
[2020-05-10 05:10] LABS: Hematocrit 23.5 % (36.0-46.0); Hemoglobin 7.8 g/dL (12.2-16.2); Mean Corpuscular Volume 93.8 fL (80.0-100.0); Platelet Count (auto) 79 10^3/uL (140-450); Red Blood Cells 2.51 10^6/uL (4.0-5.20); White Blood Cell 19.2 10^3/uL (4.4-10.8)
[2020-05-10 05:16] LABS: Basophils % (manual) 0 (0.0-2.0); Blast Cells 0; Eosinophils % (manual) 0 (0-7); Promyelocytes % 0; Reactive Lymphocytes 0
[2020-05-10 05:25] LABS: Albumin 1.3 g/dL (3.4-5.0); BUN/Creatinine Ratio 38.9; Calcium 7.3 mg/dL (8.5-10.1); Potassium 3.4 mmol/L (3.5-5.1)
[2020-05-10 05:28] LABS: Bilirubin, Total 1.7 mg/dL (0.2-1.0); Total Protein 5.1 g/dL (6.4-8.2)
[2020-05-10 05:35] LABS: INR 0.98 (0.9-1.15)
--- NOTE | 2020-05-10 06:18 | NUR ---
Flexicil bag changed stool dark brown, liquid.
[2020-05-10 06:51] LABS: Band Neutrophils % (manual) 24; Lymphocytes % (manual) 6 (10.0-50.0); Metamyelocytes % 2; Monocytes % (manual) 2 (0-12); Myelocytes % 1
[2020-05-10] MEDS: SODIUM CHLORIDE 0.9% 1,000 ML IV SCH ×2 (06:58→14:58)
[2020-05-10] MEDS: LINEZOLID 600MG/300ML 300 ML IV SCH (08:42)
--- NOTE | 2020-05-10 08:44 | NUR ---
Received call from patient's daughter Ilsa who's able to provide password. Updated on patient's status and POC. Verbalized understanding. All questions and concerns addressed.
--- NOTE | 2020-05-10 10:15 | NUR ---
MD at bedside Dr. Hewitt updated on patients current status, carried out orders.
[2020-05-10] MEDS ORDERED: METOCLOPRAMIDE HCL 5MG/ml INJ 2ml VIAL ONE (10:30)
[2020-05-10] MEDS ORDERED: POTASSIUM CHL 20MEQ/100ML 100 ML IV ONE (10:30)
[2020-05-10] MEDS ORDERED: METOCLOPRAMIDE HCL 5MG/ml INJ 2ml VIAL IV PRN (10:30)
[2020-05-10] MEDS: PANTOPRAZOLE 40 MG/10 ML VIAL INJ IV SCH ×2 (10:39→22:00)
[2020-05-10] MEDS: CLOPIDOGREL BISULFATE 75 MG TAB PO SCH (10:39)
[2020-05-10] MEDS: ASPirin 81 mg TAB NG SCH (10:39)
[2020-05-10] MEDS: ENOXAPARIN SOD 40 MG/0.4 ML SYRINGE SC SCH (10:40)
[2020-05-10] MEDS: FUROSEMIDE 40 MG/4 ML VIAL IV SCH ×2 (10:40→22:00)
[2020-05-10] MEDS: POTASSIUM CHL 20MEQ/100ML 100 ML IV SCH ×2 (10:41→13:27)
[2020-05-10] MEDS: MEROPENEM 1GM IVPB 100 ML IV SCH ×2 (10:51→23:05)
--- NOTE | 2020-05-10 11:00 | NUR ---
PCR collected and sent to lab
--- NOTE | 2020-05-10 11:05 | NUR ---
Nutrition Followup Notes Wt 130.1 kg Pt is intubated, sedated with propofol running at 16.329 ml/hr ml/hr providing 431 kcals from lipids. Pt is currently NPO with EN nutrition support on hold due to hgh residulas per RN. pt was on EN support with Nepro with Carb Steady currently at 20ml/hr providing 864 kcals and 39 gm proteins. Est energy needs: 1282-7650 kcal (30-35 kcal/kg IBW 54.5kg), Est protein needs 55-71g (1-1.3g/kg IBW 54.5kg) Will monitor and reassess prn. LABS: BUN 81 H CREAT 2.08 H ED 1.7 H CA 7.3 L BM: Pt with 400 ml today per RN note Skin: BS 10 high risk, full details in palliative care physician note PES: 1) Altered nutrition related labs r/t current and chronic medical conditions aeb pt with hyponatremia, hyperkalemia, elevated RFTs, hypoalb 2) Inadequate oral intake r/t current medical condition aeb pt is NPO, intubated/sedated Comments: 1) Continue to monitor NPO status, EN tolerance, labs, skin. F/u high 2-3 days Rec: 1) Consider EN support with Jevity 1.2 @ 50 ml/hr as pt not on HD. 2) consider prostat 1 packet bid as RFT improve. 3) Refer pt to OPD on Dc. 4) Continue current plan of care
--- NOTE | 2020-05-10 11:31 | NUR ---
Opening Shift Note Assumed care of patient, intubated and sedated. No S/S of distress/SOB or pain. OGT feeding on hold due reported residual per technical support agent, aspirated 30ml from tube feeding, continue to hold will inform MD. Bed low to floor and locked, will continue to monitor for changes Q1hr and PRN. Addendum: 05/10/20 at 1134 by JOSE R FONTENOT RN RN time should 0730 and not 1134
--- NOTE | 2020-05-10 11:32 | NUR ---
Faxed clinical packet to [facility] [phone]
--- NOTE | 2020-05-10 11:45 | NUR ---
WOUND CARE NOTE: WOUND CARE IN TO SEE PATIENT FOR NEW SKIN INTEGRITY ISSUES. PATIENT CONTINUES TO HAVE MASD WITH SKIN EROSION TO BILATERAL BUTTOCKS. PATIENT HAS NEW DTI TO RIGHT ELBOW, LEFT OPEN TO AIR. PATIENT HAS NEW INTACT BLISTER TO RIGHT HAND, LEFT OPEN TO AIR. RECOMMEND: CONTINUE WITH ALL PREVIOUSLY PRESCRIBED WOUND CARE ORDERED BY PHYSICIAN. CONTINUED MONITORING BY WOUND CARE TEAM.
--- NOTE | 2020-05-10 13:00 | NUR ---
Dr Martinez at bedside, updated on patient's status. Patient seen and examined. Will carry out new orders.
--- NOTE | 2020-05-10 14:45 | NUR ---
Dr Maier in ICU, updated on patient's status. Will carry out new orders.
--- NOTE | 2020-05-10 14:54 | NUR ---
Received a call from Perla at Transfer Center at [facility] answered all questions that were ask, states they are still reviewing the chart and will call back when they have a answer.
[2020-05-10] MEDS: DOPamine 1600MCG/ML D5W 250 ML IV SCH (15:20)
[2020-05-10] MEDS: VASOPRESSIN 50 UNITS in D5W 5% 247.5 ML IV SCH (15:45)
--- NOTE | 2020-05-10 15:50 | NUR ---
Received a call from Sharron environmental coordinator at the [facility] transfer center stated they are at capacity and there is no need for HLOC, they will have to deny the transfer.
--- NOTE | 2020-05-10 15:55 | NUR ---
Per social work case manager Charity, [facility] is not accepting patient because they're at capacity right now. Informed patient's daughter Ilsa and stated she wanted to try [facility]. Charity informed.
--- NOTE | 2020-05-10 17:05 | NUR ---
Temp 100.2 Removed patients sheets and lowered temp in room, will continue to monitor.
--- NOTE | 2020-05-10 18:00 | NUR ---
Feeding restarted Checked residual from OGT and it was less than 10ml, feeding restarted at 20ml/hr.
--- NOTE | 2020-05-10 18:45 | NUR ---
Rechecked temp Oral temp 100.5, cooling measures initiated and ice packs applied to patient, will continue to monitor.
[2020-05-10] MEDS: ALBUTEROL SULF 2.5 MG/0.5ML(0.5%) NEB SOLN NEB PRN (22:19)
[2020-05-10] MEDS: IPRATROPIUM BROM 0.5 MG/2.5ML INH SOL NEB PRN (22:19)
[2020-05-11] VITALS (95 sets, daily range): BP systolic 80–186; BP diastolic 42–79
[2020-05-11 04:40] LABS: Red Blood Cells 2.37 10^6/uL (4.0-5.20)
[2020-05-11 04:43] LABS: Hematocrit 22.7 % (36.0-46.0); Hemoglobin 7.2 g/dL (12.2-16.2); Mean Corpuscular Hemoglobin 30.5 pg (28.0-32.0); Mean Corpuscular Hgb Conc. 31.8 g/dL (32.0-36.0); Mean Corpuscular Volume 95.8 fL (80.0-100.0); Platelet Count (auto) 64 10^3/uL (140-450); Red Cell Distribution Width 17.1 % (11.8-14.3); White Blood Cell 18.3 10^3/uL (4.4-10.8)
[2020-05-11 05:01] LABS: BUN/Creatinine Ratio 43.9; Calcium 7.4 mg/dL (8.5-10.1); Potassium 3.8 mmol/L (3.5-5.1)
[2020-05-11] MEDS: PROPOFOL 100 ML IV SCH ×4 (05:10→22:29)
[2020-05-11 05:11] LABS: Basophils % (manual) 0 (0.0-2.0); Blast Cells 0; Eosinophils % (manual) 0 (0-7); Promyelocytes % 0; Reactive Lymphocytes 0
[2020-05-11] MEDS: MIDAZOLAM DRIP 50 mg/50mL 50 ML IV SCH ×4 (05:31→22:28)
--- NOTE | 2020-05-11 05:33 | NUR ---
pt started to desaturate after linen change ,and continued to desaturate in spite of manual ventilation, suctioning increasing the sedation, hr drops intermitently in the 40's. ABG SHOWING A PH OF7.2 / 50PAO2/ 58CO2. CODE BLUE CART AT THE BEDSIDE, HOSPITALIST PAGED, CXR REQUESTED STAT, PT'S DAUGHTER INFORMED OS PT'S CONDITION.
--- NOTE | 2020-05-11 05:35 | NUR ---
PAGED OVERHEAD TO BEDSIDE FOR PT DESATURATION 70% PT HAND BAGGED FOR 15 MIN WITH POX INCREASE TO 100% UPON RETURNING HER TO VENT HER SATURATIONS DECREASED ONCE MORE. VENT SETTINGS ADJUSTED, POX 90% ABG TO FOLLOW X1 HR . INLINE TX GIVEN W/O EFFECT. CXR AT BEDSIDE.
[2020-05-11] MEDS ORDERED: NOREPINEPHRINE 8 MG/250ML KIT 250 ML IV ONE (05:56)
[2020-05-11] MEDS ORDERED: SODIUM BICARBONATE 8.4% INJ 50ML SYRINGE ONE (06:05)
--- NOTE | 2020-05-11 06:13 | NUR ---
PCXR DONE .ONE AMP NAHCO3 IV PER HOSPITALIST, VENT RATE INCREASED TO 18, REPEAT ABG IN ONE HR.. PT'S HR STABILIZED AT 90/MIN, BP 106/58, SAT 92%, RR 24.LEESA CLINICAL PRACTICE CONSULTANT AT THE BEDSIDE.
[2020-05-11] MEDS: SODIUM CHLORIDE 0.9% 1,000 ML IV SCH ×2 (06:15→15:45)
[2020-05-11] MEDS ORDERED: SODIUM BICARBONATE 8.4 % INJ 50ML VIAL IV ONE (06:15)
[2020-05-11 06:21] LABS: Band Neutrophils % (manual) 21; Lymphocytes % (manual) 5 (10.0-50.0); Metamyelocytes % 1; Monocytes % (manual) 2 (0-12); Myelocytes % 2
[2020-05-11] MEDS: IPRATROPIUM BROM 0.5 MG/2.5ML INH SOL NEB PRN (06:24)
[2020-05-11] MEDS: ALBUTEROL SULF 2.5 MG/0.5ML(0.5%) NEB SOLN NEB PRN (06:24)
--- NOTE | 2020-05-11 09:55 | NUR ---
DR ACHARYA AT BEDSIDE UPDATED ON PATIENT'S STATUS, VENT SETTINGS, LABS AND PATIENT'S EPISODE OF BRADYCARDIA DURING THE NIGHT. MD ALSO AWARE OF DR NASH'S VISIT WELL AND RECOMMENDATIONS. MD VERBALIZED UNDERSTANDING AND REQUESTED NURSE TO FOLLOW UP ON TRANSFER PER FAMILY REQUEST.
[2020-05-11] MEDS: ENOXAPARIN SOD 40 MG/0.4 ML SYRINGE SC SCH (10:00)
--- NOTE | 2020-05-11 10:00 | NUR ---
Called [facility] [phone] and spoke with Annalee VALLES inquired about the authorization for the patient to be transferred to [facility], stated that a family request is not a transfer for [facility] it is a Lateral transfer. Ask why the family wanted the patient transferred and explain to her that the family wants a second opinion, Stated to have the Md ask another Md to see the patient an evaluate. Gave a verbal update on the patient and explained that she was on the ventilator at 100%, also that this morning she had to be bagged due to Low O2 sat. Stated she is not going to give auth to transfer the patient is not stable enough to be transferred. Called Natty López to make her aware and placed a page to Dr Hewitt.
--- NOTE | 2020-05-11 10:13 | NUR ---
CALL RECEIVED FROM VIDEOTAPE OPERATOR LUCY UPDATED ON DR ACHARYA'S PRIOR CONVERSATION WITH PATIENT'S DAUGHTER YESTERDAY FAMILY REQUESTING TRANSFER. LUCY NOTIFIED THIS NURSE THAT INSURANCE COMPANY WILL NOT AUTHORIZE "LATERAL TRANSFER, SIMPLY BECAUSE FAMILY IS REQUESTING". DR ACHARYA AWARE, WILL NOTIFY FAMILY.
[2020-05-11] MEDS ORDERED: ALBUMIN 25% 100 ML IV ONE (10:30)
[2020-05-11] MEDS: DOPamine 1600MCG/ML D5W 250 ML IV SCH (11:00)
[2020-05-11] MEDS: ASPirin 81 mg TAB NG SCH (11:19)
[2020-05-11] MEDS: CLOPIDOGREL BISULFATE 75 MG TAB PO SCH (11:19)
[2020-05-11] MEDS: PANTOPRAZOLE 40 MG/10 ML VIAL INJ IV SCH ×2 (11:28→22:00)
[2020-05-11] MEDS: MEROPENEM 1GM IVPB 100 ML IV SCH ×2 (12:50→22:44)
[2020-05-11] MEDS: FUROSEMIDE 40 MG/4 ML VIAL IV SCH ×2 (13:20→22:27)
[2020-05-11] MEDS: NOREPINEPHRINE BITARTRATE 16 MG in SODIUM CHL 0.9% 250 ML IV SCH (14:45)
[2020-05-11] MEDS ORDERED: ATROPINE SULF 1 MG/10ml SYR IV ONE (14:55)
[2020-05-11] MEDS ORDERED: EPINEPHrine HCL 1 MG/10 ML SYRG IV ONE (14:55)
[2020-05-11] MEDS: VASOPRESSIN 50 UNITS in D5W 5% 247.5 ML IV SCH (15:45)
[2020-05-11] MEDS ORDERED: PANTOPRAZOLE 40mg/50ML NS AE 50 ML IV ONE (22:32)
[2020-05-12] VITALS (94 sets, daily range): BP systolic 80–125; BP diastolic 17–63
[2020-05-12 04:12] LABS: Hemoglobin 7.1 g/dL (12.2-16.2)
[2020-05-12 04:16] LABS: Hematocrit 22.2 % (36.0-46.0); Mean Corpuscular Hemoglobin 30.5 pg (28.0-32.0); Mean Corpuscular Volume 95.4 fL (80.0-100.0); Platelet Count (auto) 59 10^3/uL (140-450); Red Blood Cells 2.33 10^6/uL (4.0-5.20); White Blood Cell 18.2 10^3/uL (4.4-10.8)
[2020-05-12 04:23] LABS: Basophils % (manual) 0 (0.0-2.0); Blast Cells 0; Myelocytes % 0; Promyelocytes % 0; Reactive Lymphocytes 0
[2020-05-12 04:35] LABS: Calcium 7.9 mg/dL (8.5-10.1); Potassium 3.1 mmol/L (3.5-5.1)
[2020-05-12 04:37] LABS: BUN/Creatinine Ratio 44.4
[2020-05-12] MEDS: SODIUM CHLORIDE 0.9% 1,000 ML IV SCH (05:28)
[2020-05-12 05:37] LABS: Band Neutrophils % (manual) 23; Eosinophils % (manual) 1 (0-7); Lymphocytes % (manual) 4 (10.0-50.0); Metamyelocytes % 2; Monocytes % (manual) 3 (0-12)
[2020-05-12] MEDS: DOPamine 1600MCG/ML D5W 250 ML IV SCH (06:40)
[2020-05-12] MEDS: NOREPINEPHRINE BITARTRATE 16 MG in SODIUM CHL 0.9% 250 ML IV SCH ×2 (07:24→20:03)
[2020-05-12] MEDS: PROPOFOL 100 ML IV SCH ×4 (07:26→21:27)
--- NOTE | 2020-05-12 08:14 | NUR ---
MESSAGE LEFT FOR NUTRITION REGARDING CURRENT DIET PATIENT HAS HAD MULTIPLE EPISODES OF LIQUID DIARRHEA AND INTERVENTIONS PROVIDED ARE NOT MAINTAINING ADEQUATE SKIN INTEGRITY, AWAITING RESPONSE. MD AWARE AND WILL BE UPDATED ONCE AGAIN TODAY.
--- NOTE | 2020-05-12 09:15 | NUR ---
Family updated on pt status Family of KAYA JIMENEZ updated on patient's status and condition after password verification. All questions and concerns addressed. Daughter Citlali verbalized understanding. No further questions received from family.
[2020-05-12] MEDS: PANTOPRAZOLE 40 MG/10 ML VIAL INJ IV SCH ×2 (10:00→21:32)
[2020-05-12] MEDS: ASPirin 81 mg TAB NG SCH (10:00)
[2020-05-12] MEDS: ENOXAPARIN SOD 40 MG/0.4 ML SYRINGE SC SCH (10:00)
--- NOTE | 2020-05-12 10:32 | NUR ---
HOSPITALIST VISITS DR ACHARYA UPDATED ON PATIENT'S STATUS, MORNING LABS AND CURRENT VENT SETTINGS, MD VERBALIZED UNDERSTANDING AND ASSESSED PATIENT AT BEDSIDE. MD ALSO AWARE DIARRHEA AND ARMHOLE BASTER JUMPBASTING RECOMMENDATION TO CHANGE ENTERAL FEEDING TO VITAL AF WITH A GOAL OF 60 MLS/HR. VERBAL POTASSIUM REPLACEMENT ORDERED WELL, 40 MEQ POTASSIUM IV AND 50 MEQ PO EFFERVESCENT, ORDERS WILL BE CARRIED OUT. MD ALSO ORDERED ASPIRIN, LOVENOX AND PLAVIX TO BE HELD TODAY UNTIL LAB REASSESSMENT TOMORROW.
[2020-05-12] MEDS: MEROPENEM 1GM IVPB 100 ML IV SCH ×2 (10:53→23:09)
[2020-05-12] MEDS: MIDAZOLAM DRIP 50 mg/50mL 50 ML IV SCH ×3 (10:57→22:03)
--- NOTE | 2020-05-12 11:17 | NUR ---
Nutrition Followup Notes Wt 131.6 kg Pt is intubated, sedated with propofol running at 13.063 ml/hr ml/hr providing 344 kcals from lipids. Pt is currently NPO with EN nutrition support on hold due to diarrhoea per RN. RN informed of new rec for diarrhoea Est energy needs: 8043-8521 kcal (30-35 kcal/kg IBW 54.5kg), Est protein needs 55-71g (1-1.3g/kg IBW 54.5kg) Will monitor and reassess prn. LABS: BUN 88 H CREAT 1.98 H ED 1.7 H CA 7.9 L BM: Pt with 300 ml today per RN note Skin: BS 9 high risk, full details in aged or disabled care worker note PES: 1) Altered nutrition related labs r/t current and chronic medical conditions aeb pt with hyponatremia, hyperkalemia, elevated RFTs, hypoalb 2) Inadequate oral intake r/t current medical condition aeb pt is NPO, intubated/sedated Comments: 1) Continue to monitor NPO status, labs, skin. F/u high 2-3 days Rec: 1) Consider EN support with Vital AF 1.2 @ 50 ml/hr instead of Nephro. 2) consider prostat 1 packet bid as RFT improve. 3) Refer pt to OPD on Dc. 4) Continue current plan of care
--- NOTE | 2020-05-12 11:17 | NUR ---
CALL RECEIVED FROM DR Arie HERNANDEZ REQUESTING PATIENT STATUS STATING "PATIENT IS MY PATIENT AND FAMILY REQUESTING THAT I FOLLOW-UP WITH PATIENT'S CARE" DR MARCK DUARTE AND MD UPDATED ON PATIENT'S STATUS AND REASON FOR VISIT. DR HERNANDEZ VERBALIZED UNDERSTANDING. SECOND OPINION CARDIO CONSULT PER FAMILY REQUEST ORDERED BY DR ACHARYA.
[2020-05-12] MEDS: ALBUMIN 25% 50 ML IV SCH ×2 (11:21→20:01)
[2020-05-12] MEDS: CLOPIDOGREL BISULFATE 75 MG TAB PO SCH (11:21)
[2020-05-12] MEDS: FUROSEMIDE 40 MG/4 ML VIAL IV SCH (14:03)
--- NOTE | 2020-05-12 14:08 | NUR ---
ЮЛИЯ HOSPITALIST/PT NOT TOLERATED TURN PATIENT CLEANSED OF SMALL AMOUNT LIQUID BROWN STOOL LEAKING AROUND FLEXI-SEAL, PARTIAL BEDDING BUTLER AND TO MAINTAIN SKIN INTEGRITY. PATIENT DID NOT TOLERATE TURN, LOW INSPIRATORY PRESSURE NEED TO INCREASE FIO2 TO 100% AND INCREASE SEDATION. HOSPITALIST DR ACHARYA NOTIFIED OF STATUS CHANGE, DR ACHARYA ORDERED INSPIRATORY PRESSURE TO BE INCREASED NEEDED, Niraj CARUSO.Cierra. AWARE. WILL CONTINUE TO MONITOR.
--- NOTE | 2020-05-12 15:09 | NUR ---
PAGED HOSPITALIST/CHANGE IN STATUS CONTINUE TO UPDATE ON PATIENT'S STATUS WITH CONTINUED INCREASE RR AND VITAL SIGN CHANGES, MD ORDERED FENTANYL AND MAY NEED PARALYTIC IF FENTANYL DOES NOT WORK. DR ACHARYA ALSO AWARE THAT PATIENT WILL NO LONGER BE TURNED AT THIS TIME DUE TO SENSITIVITY AND INSTABILITY. MD AGREED AND VERBALIZED UNDERSTANDING. ORDERS WILL BE CARRIED OUT.
[2020-05-12] MEDS ORDERED: fentaNYL Drip 2500mCg/250mlNS 250 ML IV ONE (15:22)
[2020-05-12] MEDS: ATRACURIUM BESYLATE 1,000 MG in D5W 5% 150 ML IV SCH (15:30)
[2020-05-12] MEDS ORDERED: fentaNYL Drip 2500mCg/250mlNS 250 ML IV SCH (15:30)
--- NOTE | 2020-05-12 15:31 | NUR ---
CONTACT FAMILY TO NOTIFY OF STATUS CHANGE SPOKE WITH PATIENT'S DAUGHTER HEBER AND PROVIDED UPDATE ON STATUS CHANGE AFTER PASSWORD VERIFICATION. DUONG ALSO AWARE OF NEED TO INCREASE SEDATION AND ADD FENTANYL AND MAY REQUIRE PARALYTIC. DUONG VERBALIZED UNDERSTANDING. WILL CONTINUE TO MONITOR.
[2020-05-12] MEDS ORDERED: POTASSIUM EFFERVESENT TAB 25 MEQ GT ONE (15:45)
[2020-05-12] MEDS ORDERED: ATRACURIUM BESYLATE (10 MG/ ML) 10 ML VIAL IV ONE (15:45)
[2020-05-12] MEDS ORDERED: Vital AF 1.2 Cal 1 liter bottle GT SCH (15:45)
[2020-05-12] MEDS: fentaNYL Drip 2500mCg/250mlNS 250 ML IV SCH (15:45)
--- NOTE | 2020-05-12 15:50 | NUR ---
SPOKE WITH PHARMACISTS REGARDING PARALYTIC PHARMACISTS AWARE OF PATIENT REQUIRING PARALYTIC AND NEED TO CALCULATE INITIAL BOLUS DOSE. PER PHARMACISTS "PULL ATRICURIUM FROM PYXIS AND BOLUS DOSE WILL BE 2.7 MLS IVP X1. WILL CONTINUE TO MONITOR PATIENT.
[2020-05-12] MEDS: POTASSIUM CHL 20MEQ/100ML 100 ML IV SCH ×2 (16:24→18:32)
[2020-05-12] MEDS: VASOPRESSIN 50 UNITS in D5W 5% 247.5 ML IV SCH (16:38)
[2020-05-12] MEDS: ALBUTEROL SULF 2.5 MG/0.5ML(0.5%) NEB SOLN NEB PRN ×2 (18:21→22:51)
[2020-05-12] MEDS: IPRATROPIUM BROM 0.5 MG/2.5ML INH SOL NEB PRN ×2 (18:21→22:51)
--- NOTE | 2020-05-12 20:00 | NUR ---
TUBE FEEDING VITAL AF TUBE FEEDING NOT AVAILABLE. WILL NOTIFY DIETARY IN AM.
--- NOTE | 2020-05-12 21:00 | NUR ---
SEDATION VACATION DUE TO PATIENT'S DESATURATION SEDATION WAS INCREASED IN THE AFTER NOON. PATIENT IS UNAROUSABLE NOW. NO SEDATION VACATION DONE NOW. WILL TRY TO DECREASE THE SEDATION LATER.
--- NOTE | 2020-05-12 22:00 | NUR ---
WOUND ASSESSMENT & WOUND CARE PATIENT IS UNSTABLE(DESATURATING) AND UNABLE TO TURN SO WOUND ASSESSMENT AND WOUND CARE NOT DONE ON POSTERIOR PART OF THE BODY.
[2020-05-13] VITALS (105 sets, daily range): BP systolic 87–139; BP diastolic 32–62
[2020-05-13] MEDS: PROPOFOL 100 ML IV SCH ×6 (00:20→22:52)
--- NOTE | 2020-05-13 01:05 | NUR ---
TURNING/DESATURATION TURNED THE PATIENT TO LT.SIDE THEN SATURATION DROPPED TO 72%. PLACED PATIENT BACK ON SUPINE WITH HEAD ELEVATED TO 30 DEGREE. SATURATION INCREASED TO 90%.
[2020-05-13] MEDS: MIDAZOLAM DRIP 50 mg/50mL 50 ML IV SCH ×4 (01:40→16:27)
[2020-05-13] MEDS: DOPamine 1600MCG/ML D5W 250 ML IV SCH ×2 (02:20→22:00)
[2020-05-13] MEDS: fentaNYL Drip 2500mCg/250mlNS 250 ML IV SCH (02:23)
[2020-05-13] MEDS: ALBUMIN 25% 50 ML IV SCH (03:42)
--- NOTE | 2020-05-13 04:00 | NUR ---
COOLING MEASURES ICE PACKS ARE COLD COMPRESS APPLIED FOR HYPERTHERMIA.
[2020-05-13 04:08] LABS: Hematocrit 20.5 % (36.0-46.0); Red Blood Cells 2.09 10^6/uL (4.0-5.20)
[2020-05-13 04:10] LABS: Mean Corpuscular Hemoglobin 30.4 pg (28.0-32.0); Platelet Count (auto) 40 10^3/uL (140-450); Red Cell Distribution Width 17.2 % (11.8-14.3); White Blood Cell 23.8 10^3/uL (4.4-10.8)
[2020-05-13 04:21] LABS: Hemoglobin 6.4 g/dL (12.2-16.2)
[2020-05-13 04:24] LABS: Basophils % (manual) 0 (0.0-2.0); Blast Cells 0; Eosinophils % (manual) 0 (0-7); Promyelocytes % 0; Reactive Lymphocytes 0
[2020-05-13 04:28] LABS: Calcium 7.4 mg/dL (8.5-10.1); Potassium 4.1 mmol/L (3.5-5.1)
--- NOTE | 2020-05-13 05:14 | NUR ---
PAGED HOSPITALIST REGARDING LOW HEMOGLOBIN.
--- NOTE | 2020-05-13 06:00 | NUR ---
SEDATION DECREASED PATIENT IS UNAROUSABLE SO FENTANYL AND PROPOFOL DECREASED EVERY HOUR.
[2020-05-13 06:45] LABS: Band Neutrophils % (manual) 20; Lymphocytes % (manual) 5 (10.0-50.0); Metamyelocytes % 1; Monocytes % (manual) 1 (0-12); Myelocytes % 1
[2020-05-13] MEDS: NOREPINEPHRINE BITARTRATE 16 MG in SODIUM CHL 0.9% 250 ML IV SCH ×2 (06:58→16:24)
--- NOTE | 2020-05-13 09:15 | NUR ---
MD Dr. Haynes at bedside updated on patient condition with new orders. MD to input into system. Will continue to monitor patient and implement new orders per MD.
[2020-05-13] MEDS: ENOXAPARIN SOD 40 MG/0.4 ML SYRINGE SC SCH (09:49)
[2020-05-13] MEDS: CLOPIDOGREL BISULFATE 75 MG TAB PO SCH (09:49)
[2020-05-13] MEDS: ASPirin 81 mg TAB NG SCH (09:50)
--- NOTE | 2020-05-13 09:50 | NUR ---
MEDICATION HELD Some medication held secondary to low platelets/low hemoglobin. Dr. Haynes aware.
[2020-05-13] MEDS: FUROSEMIDE 40 MG/4 ML VIAL IV SCH (10:00)
[2020-05-13] MEDS: PANTOPRAZOLE 40 MG/10 ML VIAL INJ IV SCH ×2 (10:01→21:45)
--- NOTE | 2020-05-13 10:10 | NUR ---
MD Dr. Martinez at bedside updated on patient condition with no new orders. Will continue to monitor patient closely.
--- NOTE | 2020-05-13 10:40 | NUR ---
FAMILY Received phone call from patients daughter Citlali, confirmed password and updated on patient condition.
[2020-05-13] MEDS: MEROPENEM 1GM IVPB 100 ML IV SCH ×2 (11:02→22:55)
--- NOTE | 2020-05-13 11:15 | NUR ---
BLOOD CONSENT Blood consent obtained from patients daughter Citlali and witnessed by Bryce JAMES via telephone.
[2020-05-13] MEDS: IPRATROPIUM BROM 0.5 MG/2.5ML INH SOL NEB PRN ×2 (12:26→22:44)
[2020-05-13] MEDS: ALBUTEROL SULF 2.5 MG/0.5ML(0.5%) NEB SOLN NEB PRN ×2 (12:26→22:44)
--- NOTE | 2020-05-13 12:50 | NUR ---
GAMAL Called and spoke to employee from dietary regarding tube feedings receiving Nephro when order is for Vital AF. States " will be bring it up shortly." Will start once tube feedings has arrived.
--- NOTE | 2020-05-13 14:55 | NUR ---
Received phone call from Dr. Davies with new orders, this RN to input into system. Will implement orders per MD orders.
[2020-05-13] MEDS: ALBUMIN 25% 100 ML IV SCH ×2 (15:08→22:19)
[2020-05-13] MEDS: ATRACURIUM BESYLATE 1,000 MG in D5W 5% 150 ML IV SCH (15:30)
[2020-05-13] MEDS: BUMETANIDE INJECTION 12.5 MG in GIVE UN-DILUTED 0 ML IV SCH (16:01)
[2020-05-13] MEDS: VASOPRESSIN 50 UNITS in D5W 5% 247.5 ML IV SCH (16:27)
--- NOTE | 2020-05-13 17:50 | NUR ---
FAMILY Received phone call from patients daughter Citlali, confirmed password and updated on patient condition.
--- NOTE | 2020-05-13 18:00 | NUR ---
NUTRITION Started tube feedings Vital AF at 20ml/hr. Checked OG tube prior to starting feedings. OG tube in good position via air bolus.
--- NOTE | 2020-05-13 18:30 | NUR ---
H AND H H and H sent to laboratory per MD orders.
[2020-05-13 19:26] LABS: Hemoglobin 6.7 g/dL (12.2-16.2)
--- NOTE | 2020-05-13 20:00 | NUR ---
SEDATION VACATION/REPOSITIONING PATIENT WAS UNAROUSABLE SO SEDATION TURNED OFF TO CHECK NEURO STATUS. REPOSITIONED THE PATIENT TO LT. SIDE. NOW PATIENT HAS HYPOACTIVE COUGH, WITHDRAWS TO DEEP PAINFUL STIMULI, PUPILS ARE SLUGGISH BUT SHE IS DESATURATING AND NOT GETTING ENOUGH VOLUME. SUCTIONED THE PATIENT. SEDATION RESTARTED. WILL PAGE RT.
--- NOTE | 2020-05-13 20:05 | NUR ---
RT NOTE PT STARTED TO DESAT. PT DROPPED DOWN TO 82% AND WOULD NOT COME BACK UP. RT SUCTIONED WITH LAVAGE, THERE WAS A MODERATE AMOUNT OF THICK TO THIN SECRETIONS BUT PT SPO2 WAS NOT COMING UP. RT THEN GAVE A MED [employer] PRN. PT SAT STAYED IN THE LOW 80'S. RT THEN TOOK PT OFF VENT AND BAGGED FOR A COUPLE MINS TO SEE IF THAT WOULD HELP. PT DID COME UP A LITTLE ONLY TO DROP INTO THE HIGH 70'S WHEN PLACED BACK ON VENT. POX WAS CHANGED FROM ONE HAND TO THE OTHER AND THEN A NEW PROBE WAS PLACED ON THE PTS EAR. SATS STILL WOULD NOT COME UP ABOVE 83%. RT THEN TITRATED THE PIP AND PEEP UP PER DR CHACON ORDER ALLOWING FOR RT TO TITRATE NEEDED. AFTER TITRATING UP DID THE PT FINALLY RECOVER AND START OXYGENATING BETTER. THE PT IS MAINTAINING AT 86% AT THIS TIME WITH THE MENTIONED SETTINGS AND AT 100% FIO2.RT WILL REVALUATE PT AGAIN AT NEXT CHECK.
[2020-05-14] VITALS (104 sets, daily range): BP systolic 75–119; BP diastolic 40–83
[2020-05-14] MEDS: NOREPINEPHRINE BITARTRATE 16 MG in SODIUM CHL 0.9% 250 ML IV SCH ×3 (01:54→21:53)
[2020-05-14] MEDS: MIDAZOLAM DRIP 50 mg/50mL 50 ML IV SCH ×5 (01:54→23:30)
--- NOTE | 2020-05-14 02:00 | NUR ---
Patient bathe/linen change Patient given complete bath with chlorhexidine wipes. Skin integrity assessed for any changes. Linens changed. Patient repositioned for comfort.
[2020-05-14] MEDS: PROPOFOL 100 ML IV SCH ×3 (03:56→20:57)
--- NOTE | 2020-05-14 05:00 | NUR ---
DESATURATION PATIENT'S SATURATION DROPPED WITHOUT ANY ACTIVITY. SUCTIONED THE PATIENT. TURNED PATIENT TO RT.SIDE TO SEE THAT WILL HELP. WILL NOTIFY RT.
[2020-05-14 05:51] LABS: Hemoglobin 7.9 g/dL (12.2-16.2); Mean Corpuscular Hgb Conc. 31.3 g/dL (32.0-36.0); Red Blood Cells 2.61 10^6/uL (4.0-5.20)
[2020-05-14 05:52] LABS: Hematocrit 25.3 % (36.0-46.0); Mean Corpuscular Hemoglobin 30.3 pg (28.0-32.0); Platelet Count (auto) 55 10^3/uL (140-450); Red Cell Distribution Width 18.1 % (11.8-14.3); White Blood Cell 22.2 10^3/uL (4.4-10.8)
[2020-05-14 05:54] LABS: Basophils % (manual) 0 (0.0-2.0); Promyelocytes % 0; Reactive Lymphocytes 0
[2020-05-14 05:55] LABS: Blast Cells 0
[2020-05-14 06:11] LABS: Albumin 2.3 g/dL (3.4-5.0); Calcium 7.5 mg/dL (8.5-10.1); Potassium 3.8 mmol/L (3.5-5.1)
[2020-05-14 06:16] LABS: BUN/Creatinine Ratio 39.3; Bilirubin, Total 2.4 mg/dL (0.2-1.0); Total Protein 5.5 g/dL (6.4-8.2)
[2020-05-14] MEDS: ALBUMIN 25% 100 ML IV SCH (07:04)
[2020-05-14] MEDS: BUMETANIDE INJECTION 12.5 MG in GIVE UN-DILUTED 0 ML IV SCH ×2 (08:00→14:45)
--- NOTE | 2020-05-14 08:00 | NUR ---
TURNING HELD- HEMODYNAMICALLY UNSTABLE
[2020-05-14 08:19] LABS: Band Neutrophils % (manual) 21; Eosinophils % (manual) 1 (0-7); Lymphocytes % (manual) 4 (10.0-50.0); Metamyelocytes % 4; Monocytes % (manual) 3 (0-12); Myelocytes % 3
--- NOTE | 2020-05-14 08:40 | NUR ---
PATIENTS DAUGHTER HEBER CALLED FOR UPDATE PROVIDED PASSWORD. UPDATED ON PATIENTS CURRENT STATUS AND PLAN OF CARE. ADDRESSED CONCERNS
--- NOTE | 2020-05-14 08:49 | NUR ---
DR VALLADARES AT BEDSIDE DISCUSSED PATIENTS STATUS. NO NEW ORDERS AT THIS TIME
--- NOTE | 2020-05-14 08:56 | NUR ---
SPOKE WITH DR VALLEOJ REGARDING CRITICAL ABG RESULTS NEW ORDERS RECEIVED AND RESPIRATORY THERAPIST NOTIFIED
[2020-05-14] MEDS: CLOPIDOGREL BISULFATE 75 MG TAB PO SCH (10:00)
[2020-05-14] MEDS: ENOXAPARIN SOD 40 MG/0.4 ML SYRINGE SC SCH (10:00)
[2020-05-14] MEDS: ASPirin 81 mg TAB NG SCH (10:00)
--- NOTE | 2020-05-14 10:00 | NUR ---
WOUND CARE NOTE: IN TO ASSESS PATIENT AT THIS TIME. CURRENT MYKE SCORE IS 9. PATIENT TOO UNSTABLE TO TURN. PATIENT DESATURATES UPON REPOSITIONING AT THIS TIME. PATIENT CONTINUES TO HAVE INTACT DTI TO RIGHT ELBOW. SHE HAS DEVELOPED SKIN TEAR TO THE ABDOMINAL PANNUS. SHE WOULD BENEFIT FROM DAILY/PRN DRESSING CHANGES CONSISTING OF THERAHONEY, OPTIFOAM GENTLE DRESSING. UPDATED SKIN/WOUND CARE PLAN AT THIS TIME. RECOMMEND: DAILY/PRN DRESSING CHANGE TO SKIN TEAR ON ABDOMEN, CONTINUATION WITH ALL OTHER WOUND CARE ORDERS PREVIOUSLY PRESCRIBED BY MD. WOUND CARE TEAM WILL CONTINUE TO MONITOR.
[2020-05-14] MEDS: ALBUTEROL SULF 2.5 MG/0.5ML(0.5%) NEB SOLN NEB PRN ×2 (10:24→21:48)
[2020-05-14] MEDS: IPRATROPIUM BROM 0.5 MG/2.5ML INH SOL NEB PRN ×2 (10:24→21:48)
--- NOTE | 2020-05-14 12:00 | NUR ---
PAGED DR VALLADARES TO CLARIFY DR HOLGUIN REQUEST PRIMARY HOSPITALIST REQUEST RN ASK DR VALLADARES IF HE WOULD CONSIDER DIALYSIS FOR THIS PATIENT. AWAITING RETURN CALL
[2020-05-14] MEDS: PANTOPRAZOLE 40 MG/10 ML VIAL INJ IV SCH ×2 (12:13→22:00)
[2020-05-14] MEDS: MEROPENEM 1GM IVPB 100 ML IV SCH ×2 (12:13→21:51)
--- NOTE | 2020-05-14 12:35 | NUR ---
RECEIVED A CALL BACK FROM DR VALLADARES. MADE HIM AWARE THAT DR CNANON IS INQUIRING ABOUT HEMODIALYSIS FOR THIS PT. DR VALLADARES STATED HE WILL EVALUATE THE PT DAILY TO THE NEED FOR HEMODIALYSIS.
[2020-05-14] MEDS: ATRACURIUM BESYLATE 1,000 MG in D5W 5% 150 ML IV SCH (14:56)
[2020-05-14] MEDS: fentaNYL Drip 2500mCg/250mlNS 250 ML IV SCH (15:45)
[2020-05-14] MEDS: VASOPRESSIN 50 UNITS in D5W 5% 247.5 ML IV SCH (15:45)
--- NOTE | 2020-05-14 16:02 | NUR ---
Nutrition Followup Notes Wt 130.1 kg Pt is intubated, partially sedated with propofol running at 6.532 ml/hr ml/hr providing 172 kcals from lipids. Pt is currently NPO with EN nutrition support Vital AF 1.2 @ 20 ml/hr. Noted residuals are 30ml per RN doc. Est energy needs: [id number] kcal (30-35 kcal/kg IBW 54.5kg), Est protein needs 55-71g (1-1.3g/kg IBW 54.5kg) Will monitor and reassess prn. LABS: BUN 92 H CREAT 2.34 H GLUC 114 H CA 7.5 L ALB 2.5 L BM: Pt with diarrhea on 05/13 per RN note Skin: BS 9 high risk, full details in landcare facilitator note PES: 1) Altered nutrition related labs r/t current and chronic medical conditions aeb pt with hyponatremia, hyperkalemia, elevated RFTs, hypoalb 2) Inadequate oral intake r/t current medical condition aeb pt is NPO, intubated/sedated Comments: 1) Continue to monitor NPO status, labs, skin. F/u high 2-3 days Rec: 1) Consider EN support with Vital AF 1.2 @ 50 ml/hr instead of Nephro. (Resolved) 2) Consider Prostat 1 packet bid as RFT improve. 3) Refer pt to [facility] on D/C. 4) Continue current plan of care
[2020-05-14] MEDS: DOPamine 1600MCG/ML D5W 250 ML IV SCH (17:40)
--- NOTE | 2020-05-14 19:57 | NUR ---
Respiratory note: AT BEDSIDE FOR ROUTINE VENT CHECK. NO CHANGES MADE AT THIS TIME. WILL CONTINUE TO MONITOR.
--- NOTE | 2020-05-14 21:48 | NUR ---
AT BEDSIDE FOR ROUTINE VENT CHECK. NO CHANGES MADE AT THIS TIME. BS ARE FINE COURSE EXPIRATORY WHEEZES, MED NEB GIVEN INLINE NO ADVERSE REACTION NOTED. ERIKA LINDSEY AT BEDSIDE AND AWARE OF FINDINGS. WILL CONTINUE TO MONITOR.
[2020-05-15] VITALS (53 sets, daily range): BP systolic 82–113; BP diastolic 38–61
[2020-05-15] MEDS: fentaNYL Drip 2500mCg/250mlNS 250 ML IV SCH (00:33)
[2020-05-15 05:20] LABS: Albumin 2.2 g/dL (3.4-5.0); Anion Gap 13 (5-15); Carbon Dioxide 18 mmol/L (21-32); Chloride 110 mmol/L (98-107); Glucose 103 mg/dL (74-106); Potassium 4.4 mmol/L (3.5-5.1); Sodium 141 mmol/L (136-145)
[2020-05-15 05:22] LABS: Alanine Aminotransferase 25 U/L (13-56); Aspartate Aminotransferase 118 U/L (15-37); GFR African American 21 mL/min; GFR Non-African American 17 mL/min
[2020-05-15 05:25] LABS: Blood Urea Nitrogen 99 mg/dL (7-18)
[2020-05-15 05:30] LABS: Alkaline Phosphatase 107 U/L (45-117); Bilirubin, Total 2.1 mg/dL (0.2-1.0); Total Protein 5.3 g/dL (6.4-8.2)
[2020-05-15] MEDS: MIDAZOLAM DRIP 50 mg/50mL 50 ML IV SCH ×2 (05:54→15:07)
[2020-05-15] MEDS: IPRATROPIUM BROM 0.5 MG/2.5ML INH SOL NEB PRN ×2 (06:12→10:21)
[2020-05-15] MEDS: ALBUTEROL SULF 2.5 MG/0.5ML(0.5%) NEB SOLN NEB PRN ×2 (06:12→10:21)
[2020-05-15 06:57] LABS: Hematocrit 24.8 % (36.0-46.0); Hemoglobin 7.6 g/dL (12.2-16.2); Mean Corpuscular Hemoglobin 30.2 pg (28.0-32.0); Mean Corpuscular Hgb Conc. 30.8 g/dL (32.0-36.0); Mean Corpuscular Volume 98.3 fL (80.0-100.0); Platelet Count (auto) 67 10^3/uL (140-450); Red Blood Cells 2.52 10^6/uL (4.0-5.20); Red Cell Distribution Width 18.6 % (11.8-14.3); White Blood Cell 19.9 10^3/uL (4.4-10.8)
[2020-05-15 07:02] LABS: Basophils % (manual) 0 (0.0-2.0); Blast Cells 0; Promyelocytes % 0; Reactive Lymphocytes 0
[2020-05-15 07:39] LABS: Band Neutrophils % (manual) 13; Eosinophils % (manual) 1 (0-7); Lymphocytes % (manual) 5 (10.0-50.0); Metamyelocytes % 5; Monocytes % (manual) 4 (0-12); Myelocytes % 1
--- NOTE | 2020-05-15 08:00 | NUR ---
PT UNSTABLE TO TURN AT THIS TIME .
--- NOTE | 2020-05-15 09:17 | NUR ---
I called the daughter to update of pt critical status and she verbalized understanding. Pt still a full code.
[2020-05-15] MEDS ORDERED: SODIUM BICARBONATE 8.4 % INJ 50ML VIAL IV ONE ×2 (09:30→12:05)
--- NOTE | 2020-05-15 09:30 | NUR ---
DR VALLADARES SPOKE WITH THE DAUGHTER AND UPDATED OF PT STATUS.
[2020-05-15] MEDS: PANTOPRAZOLE 40 MG/10 ML VIAL INJ IV SCH (10:03)
[2020-05-15] MEDS: ASPirin 81 mg TAB NG SCH (10:03)
[2020-05-15] MEDS: CLOPIDOGREL BISULFATE 75 MG TAB PO SCH (10:04)
[2020-05-15] MEDS: ENOXAPARIN SOD 40 MG/0.4 ML SYRINGE SC SCH (10:24)
[2020-05-15] MEDS: MEROPENEM 1GM IVPB 100 ML IV SCH (10:24)
--- NOTE | 2020-05-15 10:32 | NUR ---
returned call Dr. Carmen Da Silva , updated on patient status and reason for call. Continue care.
--- NOTE | 2020-05-15 10:37 | NUR ---
MD Dr. Arie Da Silva paged and called. Awaiting call back.
[2020-05-15] MEDS: NOREPINEPHRINE BITARTRATE 16 MG in SODIUM CHL 0.9% 250 ML IV SCH (10:45)
--- NOTE | 2020-05-15 10:47 | NUR ---
Called Dr. Carmen Da Silva student finance advisor, talked to Macarena JAMES and updated on patients status.
--- NOTE | 2020-05-15 11:55 | NUR ---
PT WENT BRADYCARDIA, ATROPHINE 1 MG GIVEN IV, AND THEN WENT ASYSTOLE. CODE EULALIO CALLED. SEE CODE BLUE SHEET.
--- NOTE | 2020-05-15 11:55 | NUR ---
Code Blue note. Please see CODE sheets and Provider/MD notes regarding patient code. Family notified of code blue and updated on patient status post code.
--- NOTE | 2020-05-15 11:56 | NUR ---
DAUGHTER NOTIFIED OF PT STATUS.
[2020-05-15] MEDS ORDERED: EPINEPHrine HCL 250 ML IV SCH (12:00)
[2020-05-15] MEDS ORDERED: SODIUM BICARBONATE 50ML VIAL 150 ML in SOD CHL 0.45% 1,000 ML IV SCH (12:00)
[2020-05-15] MEDS ORDERED: EPINEPHrine HCL 250 ML IV ONE (12:02)
--- NOTE | 2020-05-15 12:05 | NUR ---
Code Blue note. Please see CODE sheets and Provider/MD notes regarding patient code. Family notified of code blue and updated on patient status post code.
[2020-05-15] MEDS ORDERED: SODIUM BICARBONATE 8.4% INJ 50ML SYRINGE ONE (12:13)
[2020-05-15] MEDS ORDERED: EPINEPHrine HCL 1 MG/10 ML SYRG ONE (12:15)
[2020-05-15] MEDS ORDERED: ATROPINE SULF 1 MG/10ml SYR IV ONE (12:22)
[2020-05-15] MEDS ORDERED: EPINEPHrine HCL 1 MG/10 ML SYRG IV ONE ×2 (12:22→19:17)
--- NOTE | 2020-05-15 12:31 | NUR ---
called, notified that patient Called to Dr. Arie Da Silva to notified about patients expiration.
--- NOTE | 2020-05-15 12:43 | NUR ---
FAMILY AT THE BEDSIDE.
[2020-05-15] MEDS: DOPamine 1600MCG/ML D5W 250 ML IV SCH (13:20)
--- NOTE | 2020-05-15 13:30 | NUR ---
LEARNING AND DEVELOPMENT DIRECTOR AND [employer] NOTIFIED.
--- NOTE | 2020-05-15 13:53 | NUR ---
Family Patients family decided to use services for [facility] located at [id number] [place] [phone] phone # . Family informed to contact home, pt awaiting stave block splitter to release remains.
--- NOTE | 2020-05-15 13:53 | NUR ---
PT BELONGINGS GIVEN TO THE DAUGHTER.
--- NOTE | 2020-05-15 16:00 | NUR ---
TOOL FILER [employer] office contacted to check status of patient. Spoke to Dali and explained patient is on [employer]hes[employer] Bonding Machine Operator list to call us, ETA unknown. Awaiting for call back.
--- NOTE | 2020-05-15 16:55 | NUR ---
EXTENSION SERVICE SPECIALIST Fire Operations Forester Jayleen called back and spoke with Macarena regarding patient. Fire Operations Forester released patients remains, no case number given. Will contact home.
--- NOTE | 2020-05-15 17:00 | NUR ---
RELEASED BY KALI ALMANZA.
--- NOTE | 2020-05-15 17:02 | NUR ---
[facility] contacted Talked to [place], information was taken. Awaiting call back for poultry picking machine tender ETA.
== END 2020-05-15 12:23 | disposition expired | DRG 720 ==
LOC: ER 17:59 → TELE 18:00 → ICU WEST 23:37
PROVIDERS: ADMIT Nurse Practitioner Family; ATTEND Internal Medicine Pulmonary Disease
PROC: 5A1955Z Respiratory Ventilation, Greater than 96 Consecutive Hours (ICD-10-PCS; 2020-04-29)
PROC: 0BH17EZ Insertion of Endotracheal Airway into Trachea, Via Natural or Artificial Opening (ICD-10-PCS; 2020-04-29)
PROC: 06HY33Z Insertion of Infusion Device into Lower Vein, Percutaneous Approach (ICD-10-PCS; principal; 2020-04-30)
PROC: 30233N1 Transfusion of Nonautologous Red Blood Cells into Peripheral Vein, Percutaneous Approach (ICD-10-PCS; 2020-05-03)
PROC: 5A12012 Performance of Cardiac Output, Single, Manual (ICD-10-PCS; 2020-05-15)
DX: A41.9 Sepsis, unspecified organism (principal); J18.9 Pneumonia, unspecified organism; R65.21 Severe sepsis with septic shock; E87.2 Acidosis; E87.1 Hypo-osmolality and hyponatremia; E88.09 Other disorders of plasma-protein metabolism, not elsewhere classified; E87.5 Hyperkalemia; E66.01 Morbid (severe) obesity due to excess calories; N17.0 Acute kidney failure with tubular necrosis; E78.5 Hyperlipidemia, unspecified; E87.6 Hypokalemia; D69.6 Thrombocytopenia, unspecified; F10.10 Alcohol abuse, uncomplicated; E44.0 Moderate protein-calorie malnutrition; E87.4 Mixed disorder of acid-base balance; Z20.828 Contact with and (suspected) exposure to other viral communicable diseases; G93.1 Anoxic brain damage, not elsewhere classified; G93.41 Metabolic encephalopathy; I46.9 Cardiac arrest, cause unspecified; I50.43 Acute on chronic combined systolic (congestive) and diastolic (congestive) heart failure; Z79.02 Long term (current) use of antithrombotics/antiplatelets; Z79.82 Long term (current) use of aspirin; F12.10 Cannabis abuse, uncomplicated; F15.10 Other stimulant abuse, uncomplicated; I13.0 Hypertensive heart and chronic kidney disease with heart failure and stage 1 through stage 4 chronic kidney disease, or unspecified chronic kidney disease; F17.210 Nicotine dependence, cigarettes, uncomplicated; I25.10 Atherosclerotic heart disease of native coronary artery without angina pectoris; I48.91 Unspecified atrial fibrillation; I73.9 Peripheral vascular disease, unspecified; J44.0 Chronic obstructive pulmonary disease with (acute) lower respiratory infection; N18.9 Chronic kidney disease, unspecified; R04.0 Epistaxis; Z83.3 Family history of diabetes mellitus; Z98.61 Coronary angioplasty status; Z98.62 Peripheral vascular angioplasty status; I25.2 Old myocardial infarction; B96.3 Hemophilus influenzae [H. influenzae] as the cause of diseases classified elsewhere; B95.61 Methicillin susceptible Staphylococcus aureus infection as the cause of diseases classified elsewhere; B37.9 Candidiasis, unspecified; Z90.49 Acquired absence of other specified parts of digestive tract; Z90.89 Acquired absence of other organs; J96.01 Acute respiratory failure with hypoxia; D62 Acute posthemorrhagic anemia; Z68.42 Body mass index [BMI] 45.0-49.9, adult
CPT/HCPCS: 31500; 36415; 36600; 51702; 70450; 71045; 76700; 80048; 80053; 80061; 80307; 81001; 82040; 82270; 82533; 82550; 82570; 82805; 83036; 83605; 83735; 83880; 83930; 83935; 84100; 84300; 84443; 84478; 84484; 85007; 85014; 85018; 85025; 85027; 85610; 85730; 86850; 86900; 86901; 86920; 87040; 87070; 87077; 87081; 87086; 87088; 87186; 87205; 87426; 87493; 93005; 93306; 94002; 94003; 94640; 94660; 96365; 96375; A4618; C9113; G0378; J0171; J0330; J0461; J0610; J1450; J2185; J2250; J2543; J2704; J3480; J7060; P9047; Q9956